=== PATIENT | female | born 1950 | race Caucasian/White ===

== ENCOUNTER 2017-04-17 06:01 | Inpatient (IN) | payer MEDICARE, BC ==
[2017-04-17] MEDS ORDERED: Scopolamine 1.5 MG Transdermal Patch TOP ONE (06:05)
[2017-04-17] MEDS ORDERED: Gabapentin 300 MG Cap PO ONE (06:05)
[2017-04-17] MEDS ORDERED: Lactated Ringers 1,000 ML IV SCH (06:15)
[2017-04-17] MEDS ORDERED: Thrombin (Bovine) 5,000 Unit Kit ONE ×2 (07:04→07:05)
[2017-04-17] MEDS ORDERED: Povidone-Iodine 10% Soln 118.25 ML Bottle ONE (07:05)
[2017-04-17] MEDS ORDERED: fentaNYL 250 MCG/5 ML SDV ONE (07:17)
[2017-04-17] MEDS ORDERED: Midazolam 1 MG/ML 2 ML SDV ONE (07:17)
[2017-04-17] MEDS ORDERED: Neostigmine Methylsulfate 1 MG/ML 5 ML Syringe ONE (07:17)
[2017-04-17] MEDS ORDERED: Dexamethasone 4 MG/ML SDV ONE (07:17)
[2017-04-17] MEDS ORDERED: Propofol 200 MG/20 ML SDV ONE (07:17)
[2017-04-17] MEDS ORDERED: Rocuronium 50 MG/5 ML Vial ONE (07:17)
[2017-04-17] MEDS ORDERED: Ondansetron 4 MG/2 ML SDV ONE (07:17)
[2017-04-17] MEDS ORDERED: Succinylcholine/Normal Saline 200 MG/10 ML Syringe ONE (07:17)
[2017-04-17] MEDS: Tranexamic Acid 900 MG in Sodium Chloride 0.9% 50 ML IV SCH ×2 (07:30→11:13)
[2017-04-17] MEDS: Clindamycin Phosphate 900 MG in Sodium Chloride 0.9% 100 ML IV ONE ×2 (07:30→13:57)
[2017-04-17] MEDS ORDERED: Ropivacaine 49.25 ML, Ketorolac 30 MG, EPINEPHrine 0.5 MG, cloNIDine 80 MCG, Sodium Chl... INJECT ONE ×5 (07:30)
[2017-04-17] MEDS ORDERED: Ketamine 500 MG/5 ML MDV IV ONE (07:30)
[2017-04-17] MEDS ORDERED: ePHEDrine 50 MG/ML SDV ONE (08:03)
[2017-04-17] MEDS ORDERED: Lactated Ringers 1,000 ML ONE (10:15)
[2017-04-17] MEDS ORDERED: Naloxone 0.4 MG/ML SDV IVPUSH PRN (10:49)
[2017-04-17] MEDS ORDERED: Sodium Chloride 0.9% 10 ML Syringe FLUSH PRN (10:49)
[2017-04-17] MEDS ORDERED: HYDROmorphone 1 MG/ML Syringe IVPUSH PRN (10:49)
[2017-04-17] MEDS ORDERED: Magnesium Hydroxide 400 MG/5 ML Susp 30 ML Cup PO PRN (10:49)
[2017-04-17] MEDS ORDERED: Aluminum Hydroxide/Magnesium Hydroxide/Simethicone Susp 30 ML Cup PO PRN (10:49)
[2017-04-17] MEDS ORDERED: Zolpidem 5 MG Tab PO PRN (10:49)
[2017-04-17] MEDS ORDERED: Sennosides 8.6 MG Tab PO PRN (10:49)
[2017-04-17] MEDS ORDERED: Ondansetron 4 MG/2 ML SDV IVPUSH PRN (10:49)
[2017-04-17] MEDS ORDERED: Dexamethasone 4 MG/ML SDV IVPUSH SCH (11:00)
[2017-04-17] MEDS: Acetaminophen/oxyCODONE 325-5 MG Tab PO PRN ×3 (13:56→22:51)
[2017-04-17] MEDS: Dexamethasone 4 MG/ML SDV IVPUSH SCH ×2 (14:30→20:41)
--- NOTE | 2017-04-17 18:48 | OR ---
DATE OF PROCEDURE: 04/17/2017 PREOPERATIVE DIAGNOSES: 1. Spondylolisthesis, L4-L5. 2. Right foraminal stenosis, L4-L5. 3. Lumbar radiculopathy, right L4-5. POSTOPERATIVE DIAGNOSES: 1. Spondylolisthesis, L4-L5. 2. Right foraminal stenosis, L4-L5. 3. Lumbar radiculopathy, right L4-5. PROCEDURE: 1. Posterior lateral fusion, L4-L5. 2. Interbody placement, L4-L5. 3. Segmental instrumentation, L4-L5. 4. Use of operating microscope. 5. Laminectomy required in addition to interbody device placement. 6. Allograft from laminae and facets placed in the interbody with Globus synthetic material as well as in the posterior lateral gutter. CONFECTIONERY MAKER: Liliya Morin NP. ANESTHESIA: General endotracheal intubation. FLUID: Lactated Ringer solution. ESTIMATED BLOOD LOSS: 150 mL. COMPLICATIONS: None. SPECIMEN: None. DISCHARGE DISPOSITION: Stable to PACU. INDICATION FOR THE PROCEDURE: The patient is well known to me. She had been hospitalized by Dr. Santos last fall with a differential of lumbar radiculopathy or right hip arthritis causing severe pain. She did receive extensive nonoperative treatment including physical therapy, injections, and nonsteroidal anti-inflammatory treatment as well as the gabapentin as well as with steroids. She had been getting worse for the last few weeks and came to Dr. Santos's office, yesterday barely able to walk with extreme radiculopathy and pain and new onset weakness to the right lower extremity. Risks and benefits of the procedure were explained to the patient. Informed consent was obtained. Preoperative imaging confirmed the above-mentioned diagnosis. DETAILS OF PROCEDURE: The patient was seen preoperatively by myself and the Anesthesia staff in the preop holding area, where the operative site was marked. She was brought to the operative suite by Anesthesia staff where general anesthesia was administered. Neuromonitoring leads were placed and sterile Navas catheter was placed. The operating microscope was draped in sterile manner. The fluoroscopy unit was draped in sterile manner. The patient was flipped into a prone position on a Samir table. All extremities were found to be well padded. The bed was then flexed. The patient was then prepped and draped in a sterile manner. Time-out was called identifying the correct the patient, the correct procedure, correct site, and antibiotics had been with appropriate period of time. Lateral fluoroscopy was then used to identify the areas of the pedicle of L4 and L5 as well as the interspace. A midline incision was made over the spinous processes L3 to L5 and carried down to the deep fascia. Bleeding was controlled with Bovie electrocautery as well as a 5.0 Aquamantys unit. Cerebellar was used for traction at that point. Rojo elevator and Bovie electrocautery were then used for dissection over the inferior portion of the spinous process and lamina of L3. The entire lamina and spinous process of L4 and the superior portion of the L5 spinous process and lamina and all their respective facets, and then the transverse process of L4 and L5 were then cleared for later fusion on the left at L4 and L5. At that point, Versa-Trac 100 mm blade were inserted down to the level of the transverse processes bilaterally and used for retraction. Bleeding was controlled with Bovie electrocautery as well as 5.0 Aquamantys unit. The lateral facets as well as the pars of L4 was identified, some soft tissue was cleared. We then started on the left side with our screws. The manner which this pedicle screws were placed was to drill down the lateral facet and then make a small drill hole of the level of the pars at the midpoint of the transverse process, and then use a PediGuard to place the track for the pedicle screw followed by confirmation of a good track placement with pedicle probe followed by a tap. I tapped one under on these and then placement of the screws. They were all 6.5 x 50 mm Creo AMP by Globus screws. I performed this on the left and then took films and then performed on the right. These all look to be in good position. I then tested the screws, all of them tested over 25. On monitoring, we then cleared the top of the screws for later tulip placement. I then did a hemilaminectomy on the right side. I removed the inferior facet of L4 and the superior facet of L5 on the right. I did encounter directly under the facet of L5, when I took the bone out with a pituitary, I did a twisting motion and examined what I thought was either a vessel or possibly part of the dorsal rami. It was pulsating and I did place Big Pool-Edenilson suture through this to prevent neuroma or to ensure that there was no bleeding later. I did encounter blood when I placed the needle through this. We then moved on and removed the remainder of the ligamentum flavum on the right and identified the exiting L4 nerve root on the right. This was totally decompressed. I then used bipolar electrocautery to clear the disk space of L4-L5 on the right, then used sharp blade to go through the annulus. I then did a total diskectomy using pituitaries as well as straight upgoing and downgoing curette and then remove more disk material. I then placed the bone tamp, we had ground bone from the lamina as well as the facets mixing it with some allograft and placed this through the bone funnel anteriorly at the anterior aspect of the disk space followed by insertion of a Rise 10 x 26, 7-degree, 8-15 mm implant. I used a distractor to get it open and then closed and then attempted forward. I then opened it half way and then tamped again forward and then opened it all the way until the torqued out it 15 mm. I felt this provided excellent stability anteriorly. We then placed our rods. We placed a 35 mm ramon on the right and a 40 mm ramon on the left. That was done after placing the tulips and then torqued the L5 screws and then did the L4 screws. I needed a slight reduction on the L4 screw on the right, which would have been expected with this spondylolisthesis. After this had been completed, we copiously irrigated with saline. I then decorticated the transverse processes on L4 and L5 as well as the facet and remainder of the lamina on the left. I then inserted our graft, copiously irrigated with saline with Betadine infused irrigation with 3 L of it, and then I placed some FloSeal in the wound and tamped this dry with a Ray-Taylor followed by Gelfoam powder followed by closure with running #2 Vicryl. Another liter of Betadine infused irrigation over the fascia followed by 0 Vicryl pops for the deep subcutaneous, 2-0 Vicryl pops for superficial subcutaneous, Monocryl, Dermabond, and a sterile dressing. The patient was then flipped onto her supine position on her hospital bed. Neuromonitoring leads were discontinued at closure and were normal during the entire procedure. Orestes Martell DO /[id number]
[2017-04-18] MEDS: Dexamethasone 4 MG/ML SDV IVPUSH SCH ×2 (01:55→07:15)
[2017-04-18] MEDS: Acetaminophen/oxyCODONE 325-5 MG Tab PO PRN ×5 (03:27→23:12)
[2017-04-18] MEDS: Docusate Sodium 100 MG Cap PO PRN (07:14)
--- NOTE | 2017-04-18 12:17 | PCM.PN ---
- General Info Date of Service: 04/18/17 Admission Dx/Problem (Free Text): Rhiannon is a pleasant 66 year old female who is status post op day 1 of a lumbar fusion. She is doing very well. Her pain is under control with oral pain medication. She continues to work with PT without any difficulties. Functional Status: Reports: pain controlled, tolerating diet, ambulating, urinating - Review of Systems General: Reports: No Symptoms Musculoskeletal: Reports: no symptoms Skin: Reports: no symptoms - Patient Data Vitals - most recent: Last Vital Signs Temp 37.0 C 04/18/17 11:25 Pulse 76 04/18/17 11:25 Resp 16 04/18/17 11:25 BP 99/55 L 04/18/17 11:25 Pulse Ox 95 04/18/17 11:25 Weight - most recent: 192 lb 3.2 oz I&O - last 24 hours: Intake & Output 04/17/17 04/18/17 04/18/17 22:59 06:59 14:59 Intake Total 1090 1221 800 Output Total 320 Balance 770 1221 800 Lab Results last 24 hrs: Laboratory Results - last 24 hr 04/18/17 04/18/17 Range/Units 05:30 05:30 WBC 13.8 H (4.5-11.0) K/uL RBC 3.77 (3.30-5.50) M/uL Hgb 11.1 L D (12.0-15.0) g/dL Hct 33.5 L (36.0-48.0) % MCV 89 (80-98) fL MCH 29 (27-31) pg MCHC 33 (32-36) % Plt Count 252 (150-400) K/uL Neut % (Auto) 89 H (36-66) % Lymph % (Auto) 4 L (24-44) % Randolph % (Auto) 7 H (2-6) % Eos % (Auto) 0 L (2-4) % Baso % (Auto) 0 (0-1) % Sodium 138 L (140-148) mmol/L Potassium 4.1 (3.6-5.2) mmol/L Chloride 103 (100-108) mmol/L Carbon Dioxide 28 (21-32) mmol/L Anion Gap 11.1 (5.0-14.0) mmol/L BUN 14 (7-18) mg/dL Creatinine 0.8 (0.6-1.0) mg/dL Est Cr Clr Drug Dosing 56.90 mL/min Estimated GFR (MDRD) > 60 (>60) Glucose 137 H (74-106) mg/dL Calcium 8.5 (8.5-10.1) mg/dL Med Orders - Current: Current Medications Al Hydroxide/Mg Hydroxide (Mag-Al Plus) 30 ml PO Q4H PRN PRN Reason: Indigestion Diazepam (Valium) 5 mg IVPUSH Q6H PRN PRN Reason: Spasms Docusate Sodium (Colace) 100 mg PO DAILY PRN PRN Reason: Constipation Last Admin: 04/18/17 07:14 Dose: 100 mg Hydromorphone HCl (Dilaudid) 1 mg IVPUSH Q2H PRN PRN Reason: Pain Lactated Ringer's (Ringers, Lactated) 1,000 mls @ 0 mls/hr IV ASDIRECTED PATTIE PRN Reason: KVO Last Admin: 04/17/17 07:07 Dose: 25 mls/hr Magnesium Hydroxide (Milk Of Magnesia) 30 ml PO BID PRN PRN Reason: Constipation Naloxone HCl (Narcan) 0.2 mg IVPUSH ONETIME PRN PRN Reason: Oversedation Ondansetron HCl (Zofran) 8 mg IVPUSH Q4H PRN PRN Reason: Nausea/Vomiting Oxycodone/Acetaminophen (Percocet 325-5 Mg) 2 tab PO Q4H PRN PRN Reason: Pain Last Admin: 04/18/17 11:30 Dose: 1 tab Senna (Senna) 8.6 mg PO BID PRN PRN Reason: Constipation Sodium Chloride (Saline Flush) 10 ml FLUSH ASDIRECTED PRN PRN Reason: Keep Vein Open Zolpidem Tartrate (Ambien) 5 mg PO BEDTIME PRN PRN Reason: Sleep Discontinued Medications Ropivacaine 49.25 ml/Ketorolac Tromethamine 30 mg/Epinephrine HCl 0.5 mg/ Clonidine HCl 80 mcg/ Sodium Chloride 48.45 ml 0 ml INJECT ONETIME ONE Stop: 04/17/17 07:31 Last Admin: 04/17/17 10:15 Dose: 100 ml Dexamethasone (Dexamethasone) Confirm Administered Dose 4 mg .ROUTE .STK-MED ONE Stop: 04/17/17 07:18 Dexamethasone (Dexamethasone) 4 mg IVPUSH Q6H [facility] Stop: 04/18/17 05:01 Last Admin: 04/17/17 20:35 Dose: Not Given Dexamethasone (Dexamethasone) 4 mg IVPUSH Q6H [facility] Stop: 04/18/17 08:01 Last Admin: 04/18/17 07:15 Dose: 4 mg Ephedrine Sulfate (Ephedrine Sulfate) Confirm Administered Dose 50 mg .ROUTE .STK-MED ONE Stop: 04/17/17 08:04 Fentanyl (Sublimaze) Confirm Administered Dose 250 mcg .ROUTE .STK-MED ONE Stop: 04/17/17 07:18 Gabapentin (Neurontin) 300 mg PO ONETIME ONE Stop: 04/17/17 06:06 Last Admin: 04/17/17 06:33 Dose: 300 mg Glycopyrrolate () Confirm Administered Dose 1 mg .ROUTE .STK-MED ONE Stop: 04/17/17 07:18 Clindamycin Phosphate 900 mg/ (Sodium Chloride) 106 mls @ 200 mls/hr IV ONETIME ONE Stop: 04/17/17 07:46 Last Admin: 04/17/17 13:57 Dose: Not Given Tranexamic Acid 900 mg/ Sodium (Chloride) 59 mls @ 236 mls/hr IV Q3H [facility] Stop: 04/17/17 10:44 Last Admin: 04/17/17 11:13 Dose: 236 mls/hr Ketamine HCl 100 mg/ Sodium (Chloride) 100 mls @ 16 mls/hr IV ASDIRECTED [facility] Stop: 04/17/17 09:30 Lactated Ringer's (Ringers, Lactated) Confirm Administered Dose 1,000 mls @ as directed .ROUTE .STK-MED ONE Stop: 04/17/17 10:16 Clindamycin Phosphate 600 mg/ (Sodium Chloride) 54 mls @ 100 mls/hr IV Q8H [facility] Stop: 04/18/17 03:33 Last Admin: 04/17/17 20:34 Dose: Not Given Clindamycin Phosphate 600 mg/ (Sodium Chloride) 54 mls @ 100 mls/hr IV Q8H [facility] Stop: 04/18/17 06:33 Last Admin: 04/18/17 05:24 Dose: 100 mls/hr Ketamine HCl (Ketalar) 27 mg IV ONETIME ONE Stop: 04/17/17 07:31 Last Admin: 04/17/17 13:58 Dose: Not Given Midazolam HCl (Versed 1 Mg/Ml) Confirm Administered Dose 2 mg .ROUTE .STK-MED ONE Stop: 04/17/17 07:18 Neostigmine Methylsulfate (Neostigmine) Confirm Administered Dose 5 mg .ROUTE .STK-MED ONE Stop: 04/17/17 07:18 Ondansetron HCl (Zofran) Confirm Administered Dose 4 mg .ROUTE .STK-MED ONE Stop: 04/17/17 07:18 Povidone Iodine (Betadine 10% Soln) Confirm Administered Dose 1 ml .ROUTE .STK- MED ONE Stop: 04/17/17 07:06 Last Admin: 04/17/17 08:23 Dose: 50 ml Propofol (Diprivan 20 Ml) Confirm Administered Dose 200 mg .ROUTE .STK-MED ONE Stop: 04/17/17 07:18 Rocuronium Troy (Zemuron) Confirm Administered Dose 50 mg .ROUTE .STK-MED ONE Stop: 04/17/17 07:18 Scopolamine (Transderm-Scop) 1.5 mg TOP ONETIME ONE Stop: 04/17/17 06:06 Last Admin: 04/17/17 06:33 Dose: 1.5 mg Succinylcholine Chloride (Succinylcholine In Ns Pf) Confirm Administered Dose 200 mg .ROUTE .STK-MED ONE Stop: 04/17/17 07:18 Thrombin (Thrombin-Jmi) Confirm Administered Dose 15,000 unit .ROUTE .STK-MED ONE Stop: 04/17/17 07:05 Last Admin: 04/17/17 08:23 Dose: 10,000 unit - Exam General: alert, oriented Back Exam: Normal Inspection, Full Range of Motion Extremities: no edema, normal pulses, no tenderness/swelling Skin: warm, dry, intact Wound/Incisions: healing well, dressing dry and intact Neurological: no new focal deficit Psy/Mental Status: alert, normal affect, normal mood - Problem List & Annotations (1) Spinal stenosis of lumbar region SNOMED Code(s): 59460216 Code(s): M48.06 - SPINAL STENOSIS, LUMBAR REGION Status: Acute Current Visit: No - Problem List Review Problem List Initiated/Reviewed/Updated: Yes - My Orders Last 24 Hours: My Active Orders 04/17/17 Lunch Advance Diet Instructions [DIET] 04/19/17 05:15 BASIC METABOLIC PANEL,BMP [CHEM] DAILY CBC WITH AUTO DIFF [HEME] DAILY 04/20/17 05:15 BASIC METABOLIC PANEL,BMP [CHEM] DAILY CBC WITH AUTO DIFF [HEME] DAILY 04/21/17 05:15 BASIC METABOLIC PANEL,BMP [CHEM] DAILY CBC WITH AUTO DIFF [HEME] DAILY - Assessment Assessment:: SPINE Musculoskeletal Physical Examination Constitutional: Vital signs including height and weight were reviewed and documented on the patient's chart. General appearance demonstrates normal development and body habitus. HEENT: Normocephalic, atraumatic. Neurological: The patient is alert and oriented to person, place, and time. Mood and affect are appropriate. Gait and station are normal. Intact sensation is noted. Deep tendon reflexes are equal. Clonus negative. Shelton' s negative. Coordination and balance are normal. Neck: Inspection/palpation: Normal symmetry and appearance without tenderness. Range of motion: Full range of motion without pain. Stability: Stable through range of motion. Strength: Normal muscle strength and tone. Skin: Normal skin tone without rashes or lesions. Lumbar Spine: Inspection/palpation: Normal symmetry and appearance without tenderness. Range of motion: Full range of motion without pain. Stability: Stable through range of motion. Strength: Normal muscle strength and tone. Skin: Normal skin tone without rashes or lesions. Right upper extremity: Inspection/palpation: Normal symmetry and appearance without tenderness. Range of motion: Full range of motion without pain. Stability: Stable through range of motion. Strength: Normal muscle strength and tone. Skin: Normal skin tone without rashes or lesions. Left upper extremity: Inspection/palpation: Normal symmetry and appearance without tenderness. Range of motion: Full range of motion without pain. Stability: Stable through range of motion. Strength: Normal muscle strength and tone. Skin: Normal skin tone without rashes or lesions. Right lower extremity: Inspection/palpation: Normal symmetry and appearance without tenderness. Range of motion: Full range of motion without pain. Stability: Stable through range of motion. Strength: Normal muscle strength and tone. Skin: Normal skin tone without rashes or lesions. Left lower extremity: Inspection/palpation: Normal symmetry and appearance without tenderness. Range of motion: Full range of motion without pain. Stability: Stable through range of motion. Strength: Normal muscle strength and tone. Skin: Normal skin tone without rashes or lesions. - Plan Plan:: At this time we will continue to monitor her. She will meet with PT multiple times today to work on strengthening. Her pain will continue to be monitored. I did replace the dressing today and the incision looks well. We will continue with our plan for prison placement due to her living at home on her own.
[2017-04-19] MEDS: Acetaminophen/oxyCODONE 325-5 MG Tab PO PRN ×5 (02:45→22:55)
[2017-04-19] MEDS: Docusate Sodium 100 MG Cap PO PRN (08:21)
--- NOTE | 2017-04-19 09:36 | PCM.PN ---
- General Info Date of Service: 04/19/17 Admission Dx/Problem (Free Text): Rhiannon is POD 2 of a lumbar fusion. She is doing well. She notes some pain at the incision site and in the right groin but is relieved with oral pain medication. She continues to work with PT for strengthening. Functional Status: Reports: pain controlled, tolerating diet, ambulating, urinating - Review of Systems General: Reports: No Symptoms Musculoskeletal: Reports: no symptoms - Patient Data Vitals - most recent: Last Vital Signs Temp 36.4 C 04/19/17 08:07 Pulse 66 04/19/17 08:07 Resp 16 04/19/17 08:07 BP 102/64 04/19/17 08:53 Pulse Ox 95 04/19/17 08:07 Weight - most recent: 192 lb 3.2 oz I&O - last 24 hours: Intake & Output 04/18/17 04/19/17 04/19/17 22:59 06:59 14:59 Intake Total 720 400 Balance 720 400 Lab Results last 24 hrs: Laboratory Results - last 24 hr 04/19/17 04/19/17 Range/Units 05:35 05:35 WBC 8.4 (4.5-11.0) K/uL RBC 3.45 (3.30-5.50) M/uL Hgb 10.2 L (12.0-15.0) g/dL Hct 31.4 L (36.0-48.0) % MCV 91 (80-98) fL MCH 30 (27-31) pg MCHC 33 (32-36) % Plt Count 223 (150-400) K/uL Neut % (Auto) 57 (36-66) % Lymph % (Auto) 28 (24-44) % [place] % (Auto) 14 H (2-6) % Eos % (Auto) 0 L (2-4) % Baso % (Auto) 0 (0-1) % Sodium 141 (140-148) mmol/L Potassium 3.8 (3.6-5.2) mmol/L Chloride 107 (100-108) mmol/L Carbon Dioxide 30 (21-32) mmol/L Anion Gap 3.6 L (5.0-14.0) mmol/L BUN 20 H (7-18) mg/dL Creatinine 0.7 (0.6-1.0) mg/dL Est Cr Clr Drug Dosing 65.03 mL/min Estimated GFR (MDRD) > 60 (>60) Glucose 91 (74-106) mg/dL Calcium 8.2 L (8.5-10.1) mg/dL Med Orders - Current: Current Medications Al Hydroxide/Mg Hydroxide (Mag-Al Plus) 30 ml PO Q4H PRN PRN Reason: Indigestion Diazepam (Valium) 5 mg IVPUSH Q6H PRN PRN Reason: Spasms Docusate Sodium (Colace) 100 mg PO DAILY PRN PRN Reason: Constipation Last Admin: 04/19/17 08:21 Dose: 100 mg Hydromorphone HCl (Dilaudid) 1 mg IVPUSH Q2H PRN PRN Reason: Pain Magnesium Hydroxide (Milk Of Magnesia) 30 ml PO BID PRN PRN Reason: Constipation Last Admin: 04/19/17 08:21 Dose: 30 ml Naloxone HCl (Narcan) 0.2 mg IVPUSH ONETIME PRN PRN Reason: Oversedation Ondansetron HCl (Zofran) 8 mg IVPUSH Q4H PRN PRN Reason: Nausea/Vomiting Oxycodone/Acetaminophen (Percocet 325-5 Mg) 2 tab PO Q4H PRN PRN Reason: Pain Last Admin: 04/19/17 08:21 Dose: 1 tab Senna (Senna) 8.6 mg PO BID PRN PRN Reason: Constipation Sodium Chloride (Saline Flush) 10 ml FLUSH ASDIRECTED PRN PRN Reason: Keep Vein Open Zolpidem Tartrate (Ambien) 5 mg PO BEDTIME PRN PRN Reason: Sleep Discontinued Medications Ropivacaine 49.25 ml/Ketorolac Tromethamine 30 mg/Epinephrine HCl 0.5 mg/ Clonidine HCl 80 mcg/ Sodium Chloride 48.45 ml 0 ml INJECT ONETIME ONE Stop: 04/17/17 07:31 Last Admin: 04/17/17 10:15 Dose: 100 ml Dexamethasone (Dexamethasone) Confirm Administered Dose 4 mg .ROUTE .STK-MED ONE Stop: 04/17/17 07:18 Dexamethasone (Dexamethasone) 4 mg IVPUSH Q6H [facility] Stop: 04/18/17 05:01 Last Admin: 04/17/17 20:35 Dose: Not Given Dexamethasone (Dexamethasone) 4 mg IVPUSH Q6H [facility] Stop: 04/18/17 08:01 Last Admin: 04/18/17 07:15 Dose: 4 mg Ephedrine Sulfate (Ephedrine Sulfate) Confirm Administered Dose 50 mg .ROUTE .STK-MED ONE Stop: 04/17/17 08:04 Fentanyl (Sublimaze) Confirm Administered Dose 250 mcg .ROUTE .STK-MED ONE Stop: 04/17/17 07:18 Gabapentin (Neurontin) 300 mg PO ONETIME ONE Stop: 04/17/17 06:06 Last Admin: 04/17/17 06:33 Dose: 300 mg Glycopyrrolate () Confirm Administered Dose 1 mg .ROUTE .STK-MED ONE Stop: 04/17/17 07:18 Lactated Ringer's (Ringers, Lactated) 1,000 mls @ 0 mls/hr IV ASDIRECTED [facility] PRN Reason: KVO Last Admin: 04/17/17 07:07 Dose: 25 mls/hr Clindamycin Phosphate 900 mg/ (Sodium Chloride) 106 mls @ 200 mls/hr IV ONETIME ONE Stop: 04/17/17 07:46 Last Admin: 04/17/17 13:57 Dose: Not Given Tranexamic Acid 900 mg/ Sodium (Chloride) 59 mls @ 236 mls/hr IV Q3H [facility] Stop: 04/17/17 10:44 Last Admin: 04/17/17 11:13 Dose: 236 mls/hr Ketamine HCl 100 mg/ Sodium (Chloride) 100 mls @ 16 mls/hr IV ASDIRECTED [facility] Stop: 04/17/17 09:30 Lactated Ringer's (Ringers, Lactated) Confirm Administered Dose 1,000 mls @ as directed .ROUTE .STK-MED ONE Stop: 04/17/17 10:16 Clindamycin Phosphate 600 mg/ (Sodium Chloride) 54 mls @ 100 mls/hr IV Q8H [facility] Stop: 04/18/17 03:33 Last Admin: 04/17/17 20:34 Dose: Not Given Clindamycin Phosphate 600 mg/ (Sodium Chloride) 54 mls @ 100 mls/hr IV Q8H [facility] Stop: 04/18/17 06:33 Last Admin: 04/18/17 05:24 Dose: 100 mls/hr Ketamine HCl (Ketalar) 27 mg IV ONETIME ONE Stop: 04/17/17 07:31 Last Admin: 04/17/17 13:58 Dose: Not Given Midazolam HCl (Versed 1 Mg/Ml) Confirm Administered Dose 2 mg .ROUTE .STK-MED ONE Stop: 04/17/17 07:18 Neostigmine Methylsulfate (Neostigmine) Confirm Administered Dose 5 mg .ROUTE .STK-MED ONE Stop: 04/17/17 07:18 Ondansetron HCl (Zofran) Confirm Administered Dose 4 mg .ROUTE .STK-MED ONE Stop: 04/17/17 07:18 Povidone Iodine (Betadine 10% Soln) Confirm Administered Dose 1 ml .ROUTE .STK- MED ONE Stop: 04/17/17 07:06 Last Admin: 04/17/17 08:23 Dose: 50 ml Propofol (Diprivan 20 Ml) Confirm Administered Dose 200 mg .ROUTE .STK-MED ONE Stop: 04/17/17 07:18 Rocuronium [place] (Zemuron) Confirm Administered Dose 50 mg .ROUTE .STK-MED ONE Stop: 04/17/17 07:18 Scopolamine (Transderm-Scop) 1.5 mg TOP ONETIME ONE Stop: 04/17/17 06:06 Last Admin: 04/17/17 06:33 Dose: 1.5 mg Succinylcholine Chloride (Succinylcholine In Ns Pf) Confirm Administered Dose 200 mg .ROUTE .STK-MED ONE Stop: 04/17/17 07:18 Thrombin (Thrombin-Jmi) Confirm Administered Dose 15,000 unit .ROUTE .STK-MED ONE Stop: 04/17/17 07:05 Last Admin: 04/17/17 08:23 Dose: 10,000 unit - Exam General: alert, oriented Back Exam: Normal Inspection Extremities: no edema, normal pulses Skin: warm, dry, intact Wound/Incisions: healing well, dressing dry and intact, no drainage Neurological: no new focal deficit Psy/Mental Status: alert, normal affect - Problem List & Annotations (1) Spinal stenosis of lumbar region SNOMED Code(s): 41528866 Code(s): M48.06 - SPINAL STENOSIS, LUMBAR REGION Status: Acute Current Visit: No - Problem List Review Problem List Initiated/Reviewed/Updated: Yes - My Orders Last 24 Hours: My Active Orders 04/20/17 05:15 BASIC METABOLIC PANEL,BMP [CHEM] DAILY CBC WITH AUTO DIFF [HEME] DAILY 04/21/17 05:15 BASIC METABOLIC PANEL,BMP [CHEM] DAILY CBC WITH AUTO DIFF [HEME] DAILY - Assessment Assessment:: SPINE Musculoskeletal Physical Examination Constitutional: Vital signs including height and weight were reviewed and documented on the patient's chart. General appearance demonstrates normal development and body habitus. HEENT: Normocephalic, atraumatic. Neurological: The patient is alert and oriented to person, place, and time. Mood and affect are appropriate. Gait and station are normal. Intact sensation is noted. Deep tendon reflexes are equal. Clonus negative. [place]' s negative. Coordination and balance are normal. Neck: Inspection/palpation: Normal symmetry and appearance without tenderness. Range of motion: Full range of motion without pain. Stability: Stable through range of motion. Strength: Normal muscle strength and tone. Skin: Normal skin tone without rashes or lesions. Lumbar Spine: Inspection/palpation: Normal symmetry and appearance without tenderness. Range of motion: Full range of motion without pain. Stability: Stable through range of motion. Strength: Normal muscle strength and tone. Skin: Normal skin tone without rashes or lesions. Right upper extremity: Inspection/palpation: Normal symmetry and appearance without tenderness. Range of motion: Full range of motion without pain. Stability: Stable through range of motion. Strength: Normal muscle strength and tone. Skin: Normal skin tone without rashes or lesions. Left upper extremity: Inspection/palpation: Normal symmetry and appearance without tenderness. Range of motion: Full range of motion without pain. Stability: Stable through range of motion. Strength: Normal muscle strength and tone. Skin: Normal skin tone without rashes or lesions. Right lower extremity: Inspection/palpation: Normal symmetry and appearance without tenderness. Range of motion: Full range of motion without pain. Stability: Stable through range of motion. Strength: Normal muscle strength and tone. Skin: Normal skin tone without rashes or lesions. Left lower extremity: Inspection/palpation: Normal symmetry and appearance without tenderness. Range of motion: Full range of motion without pain. Stability: Stable through range of motion. Strength: Normal muscle strength and tone. Skin: Normal skin tone without rashes or lesions. - Plan Plan:: Patient will be planned to discharge to the custodial tomorrow in [place]. We will send her there on Percocet. She will continue with pt and strengthening today and we will check back with her in AM.
[2017-04-19] MEDS: FLUoxetine 20 MG Cap PO SCH (11:23)
[2017-04-19] MEDS: Pantoprazole 40 MG Tab.CR PO SCH (11:23)
[2017-04-19] MEDS: Hydrochlorothiazide 25 MG Tab PO SCH (11:24)
[2017-04-20] MEDS: Acetaminophen/oxyCODONE 325-5 MG Tab PO PRN ×3 (02:58→13:07)
[2017-04-20 07:25] VITALS: BP 120/65
[2017-04-20] MEDS: Pantoprazole 40 MG Tab.CR PO SCH (07:29)
[2017-04-20] MEDS: FLUoxetine 20 MG Cap PO SCH (09:10)
[2017-04-20] MEDS: Hydrochlorothiazide 25 MG Tab PO SCH (09:10)
--- NOTE | 2017-05-14 14:47 | PCM.DCSUM1 ---
Discharge Summary - Hospital Course Free Text/Narrative:: Rhiannon is doing well. She is status post of 3 days of lumbar fusion. She is doing very well. She plans to go home today with the help of her . She is having no difficulties at this time. She continues to work with PT OT with no issues. Her pain is under control with oral pain medication. She is urinating and tolerating her diet well. She will follow-up with us in 1 month - Discharge Data Discharge Date: 04/20/17 Discharge Disposition: Home, W Home Health Agency 06 Condition: Good - Discharge Diagnosis/Problem(s) (1) Spinal stenosis of lumbar region SNOMED Code(s): 98556214 ICD Code: M48.06 - SPINAL STENOSIS, LUMBAR REGION Status: Acute (2) Spondylolisthesis, lumbar region SNOMED Code(s): 014910394477083 ICD Code: M43.16 - SPONDYLOLISTHESIS, LUMBAR REGION Status: Acute - Patient Summary/Data Consults: Consultations 04/17/17 10:49 Consult to Physician [CONS] Routine Consulting Provider: Jensen Santos Sr Courtesy Call Completed to Consulting Physician: Yes OT Evaluation and Treatment [CONS] Routine Please Evaluate and Treat. OT Reason for Consult: Strengthening This query below is only for informational purposes and is not editable. PT Evaluation and Treatment [CONS] Routine Please Evaluate and Treat. PT Reason for Consult: Strengthening This query below is only for informational purposes and is not editable. - Patient Instructions Diet: Usual Diet as Tolerated Activity: Apply Ice, As Tolerated Driving: Do Not Drive Showering/Bathing: May Shower Wound/Incision Care: Keep Operative Site/Wound Site Clean and Dry, Change Dressing Daily Notify Provider of: Fever, Increased Pain, Swelling and Redness, Drainage, Nausea and/or Vomiting - Discharge Plan Prescriptions/Med Rec: Acetaminophen/oxyCODONE [Percocet 325-5 MG] 2 tab PO Q4H PRN #90 tablet PRN Reason: Pain Home Medications: Home Meds FLUoxetine HCl [Fluoxetine HCl] 40 mg PO DAILY 02/15/14 [History] Hydrochlorothiazide 25 mg PO DAILY 02/15/14 [History] Aspirin [Adult Low Dose Aspirin EC] 81 mg PO BID 04/13/14 [History] Omeprazole 40 mg PO DAILY 08/26/16 [History] Acetaminophen [Tylenol Extra Strength] 2 tab PO Q6H PRN 04/16/17 [History] Aspirin/Acetaminophen/Caffeine [Ra Pain Reliever Tablet] 2 tab PO Q8H PRN [History] Ibuprofen 800 mg PO Q6H PRN 04/16/17 [History] Acetaminophen/oxyCODONE [Percocet 325-5 MG] 2 tab PO Q4H PRN #90 tablet [Rx] Gabapentin [Neurontin] 1 tab PO TID 05/07/17 [History] Patient Handouts: Spinal Fusion, Care After, Constipation, Adult Referrals: Orestes Martell DO [Physician] - (1 month follow up) - Discharge Summary/Plan Comment DC Time >30 min.: Yes - Patient Data Vitals - Most Recent: Last Vital Signs Temp 36.4 C 04/20/17 07:22 Pulse 66 04/20/17 07:22 Resp 16 04/20/17 07:22 BP 120/65 04/20/17 07:22 Pulse Ox 96 04/20/17 03:00 Weight - Most Recent: 192 lb 3.2 oz Med Orders - Current: Current Medications Discontinued Medications Al Hydroxide/Mg Hydroxide (Mag-Al Plus) 30 ml PO Q4H PRN PRN Reason: Indigestion Ropivacaine 49.25 ml/Ketorolac Tromethamine 30 mg/Epinephrine HCl 0.5 mg/ Clonidine HCl 80 mcg/ Sodium Chloride 48.45 ml 0 ml INJECT ONETIME ONE Stop: 04/17/17 07:31 Last Admin: 04/17/17 10:15 Dose: 100 ml Dexamethasone (Dexamethasone) Confirm Administered Dose 4 mg .ROUTE .STK-MED ONE Stop: 04/17/17 07:18 Dexamethasone (Dexamethasone) 4 mg IVPUSH Q6H [facility] Stop: 04/18/17 05:01 Last Admin: 04/17/17 20:35 Dose: Not Given Dexamethasone (Dexamethasone) 4 mg IVPUSH Q6H [facility] Stop: 04/18/17 08:01 Last Admin: 04/18/17 07:15 Dose: 4 mg Diazepam (Valium) 5 mg IVPUSH Q6H PRN PRN Reason: Spasms Docusate Sodium (Colace) 100 mg PO DAILY PRN PRN Reason: Constipation Last Admin: 04/19/17 08:21 Dose: 100 mg Ephedrine Sulfate (Ephedrine Sulfate) Confirm Administered Dose 50 mg .ROUTE .[facility] ONE Stop: 04/17/17 08:04 Fentanyl (Sublimaze) Confirm Administered Dose 250 mcg .ROUTE .[facility] ONE Stop: 04/17/17 07:18 Fluoxetine HCl (Prozac) 40 mg PO DAILY [facility] Last Admin: 04/20/17 09:10 Dose: 40 mg Gabapentin (Neurontin) 300 mg PO ONETIME ONE Stop: 04/17/17 06:06 Last Admin: 04/17/17 06:33 Dose: 300 mg Glycopyrrolate () Confirm Administered Dose 1 mg .ROUTE .[facility] ONE Stop: 04/17/17 07:18 Hydrochlorothiazide (Hydrochlorothiazide) 25 mg PO DAILY [facility] Last Admin: 04/20/17 09:10 Dose: 25 mg Hydromorphone HCl (Dilaudid) 1 mg IVPUSH Q2H PRN PRN Reason: Pain Lactated Ringer's (Ringers, Lactated) 1,000 mls @ 0 mls/hr IV ASDIRECTED [facility] PRN Reason: KVO Last Admin: 04/17/17 07:07 Dose: 25 mls/hr Clindamycin Phosphate 900 mg/ (Sodium Chloride) 106 mls @ 200 mls/hr IV ONETIME ONE Stop: 04/17/17 07:46 Last Admin: 04/17/17 13:57 Dose: Not Given Tranexamic Acid 900 mg/ Sodium (Chloride) 59 mls @ 236 mls/hr IV Q3H [facility] Stop: 04/17/17 10:44 Last Admin: 04/17/17 11:13 Dose: 236 mls/hr Ketamine HCl 100 mg/ Sodium (Chloride) 100 mls @ 16 mls/hr IV ASDIRECTED [facility] Stop: 04/17/17 09:30 Lactated Ringer's (Ringers, Lactated) Confirm Administered Dose 1,000 mls @ as directed .ROUTE .[facility] ONE Stop: 04/17/17 10:16 Clindamycin Phosphate 600 mg/ (Sodium Chloride) 54 mls @ 100 mls/hr IV Q8H [facility] Stop: 04/18/17 03:33 Last Admin: 04/17/17 20:34 Dose: Not Given Clindamycin Phosphate 600 mg/ (Sodium Chloride) 54 mls @ 100 mls/hr IV Q8H [facility] Stop: 04/18/17 06:33 Last Admin: 04/18/17 05:24 Dose: 100 mls/hr Ketamine HCl (Ketalar) 27 mg IV ONETIME ONE Stop: 04/17/17 07:31 Last Admin: 04/17/17 13:58 Dose: Not Given Magnesium Hydroxide (Milk Of Magnesia) 30 ml PO BID PRN PRN Reason: Constipation Last Admin: 04/19/17 08:21 Dose: 30 ml Midazolam HCl (Versed 1 Mg/Ml) Confirm Administered Dose 2 mg .ROUTE .STK-MED ONE Stop: 04/17/17 07:18 Naloxone HCl (Narcan) 0.2 mg IVPUSH ONETIME PRN PRN Reason: Oversedation Neostigmine Methylsulfate (Neostigmine) Confirm Administered Dose 5 mg .ROUTE .STK-MED ONE Stop: 04/17/17 07:18 Ondansetron HCl (Zofran) Confirm Administered Dose 4 mg .ROUTE .STK-MED ONE Stop: 04/17/17 07:18 Ondansetron HCl (Zofran) 8 mg IVPUSH Q4H PRN PRN Reason: Nausea/Vomiting Oxycodone/Acetaminophen (Percocet 325-5 Mg) 2 tab PO Q4H PRN PRN Reason: Pain Last Admin: 04/20/17 13:07 Dose: 2 tab Pantoprazole Sodium (Protonix) 40 mg PO ACBREAKFAST [facility] Last Admin: 04/20/17 07:29 Dose: 40 mg Povidone Iodine (Betadine 10% Soln) Confirm Administered Dose 1 ml .ROUTE .STK- MED ONE Stop: 04/17/17 07:06 Last Admin: 04/17/17 08:23 Dose: 50 ml Propofol (Diprivan 20 Ml) Confirm Administered Dose 200 mg .ROUTE .STK-MED ONE Stop: 04/17/17 07:18 Rocuronium [place] (Zemuron) Confirm Administered Dose 50 mg .ROUTE .STK-MED ONE Stop: 04/17/17 07:18 Scopolamine (Transderm-Scop) 1.5 mg TOP ONETIME ONE Stop: 04/17/17 06:06 Last Admin: 04/17/17 06:33 Dose: 1.5 mg Senna (Senna) 8.6 mg PO BID PRN PRN Reason: Constipation Sodium Chloride (Saline Flush) 10 ml FLUSH ASDIRECTED PRN PRN Reason: Keep Vein Open Succinylcholine Chloride (Succinylcholine In Ns Pf) Confirm Administered Dose 200 mg .ROUTE .STK-MED ONE Stop: 04/17/17 07:18 Thrombin (Thrombin-Jmi) Confirm Administered Dose 15,000 unit .ROUTE .STK-MED ONE Stop: 04/17/17 07:05 Last Admin: 04/17/17 08:23 Dose: 10,000 unit Thrombin (Thrombin-Jmi) 10,000 unit .ROUTE .STK-MED ONE Stop: 04/17/17 07:06 Zolpidem Tartrate (Ambien) 5 mg PO BEDTIME PRN PRN Reason: Sleep - Exam General: Reports: Alert, Oriented Skin: Reports: Warm, Dry, Intact Wound/Incisions: Reports: Healing Well, Dressing Dry and Intact Neurological: Reports: No New Focal Deficit, Normal Gait, Strength Equal Bilateral, Reflexes Equal Bilateral Psy/Mental Status: Reports: Alert *Q Meaningful Use (DIS) - VTE *Q VTE Criteria *Q: - Stroke *Q Stroke Criteria *Q: - AMI *Q AMI Criteria *Q:
== END 2017-04-20 15:35 | disposition home health service (06) | DRG 460 ==
LOC: JP.SDS 06:01 → JP.MS 06:01 → EDSTATUS 07:30 → JP.MS 10:49
PROVIDERS: ADMIT Orthopaedic Surgery; ATTEND Orthopaedic Surgery
PROC: 0SB20ZZ Excision of Lumbar Vertebral Disc, Open Approach (ICD-10-PCS; principal; 2017-04-17)
PROC: 0QH004Z Insertion of Internal Fixation Device into Lumbar Vertebra, Open Approach (ICD-10-PCS; principal; 2017-04-17)
PROC: 0SG00A1 (ICD-10-PCS; principal; 2017-04-17)
DX: M43.16 Spondylolisthesis, lumbar region (principal); M48.06 Spinal stenosis, lumbar region; I10 Essential (primary) hypertension; K21.9 Gastro-esophageal reflux disease without esophagitis; Z79.82 Long term (current) use of aspirin; Z96.659 Presence of unspecified artificial knee joint
CPT/HCPCS: 36415; 76001; 80048; 85025; 94762; 97110-GP; 97116-GP; 97162-GP; 97530-GP; 97535-GP; A9270-GY; C1713; J1100; J2250; J2405; J2704; J2795; J3010; J7030; J7050; J7120; S0077

== ENCOUNTER → 2017-06-11 | Day surgery (SDC) | payer MEDICARE, BC ==
--- NOTE | 2017-06-11 14:32 | OR ---
DATE OF PROCEDURE: 06/11/2017 POSTOPERATIVE CARE: Postoperative care will be provided mainly at the [address] [place] [address] [facility] in conjunction with [facility]. PREOPERATIVE DIAGNOSIS: Cataract, right eye. POSTOPERATIVE DIAGNOSIS: Cataract, right eye. PROCEDURE: Phacoemulsification with intraocular lens placement, right eye. ANESTHESIA: Topical and intracameral. ESTIMATED BLOOD LOSS: Minimal. COMPLICATIONS: None. PATHOLOGY SPECIMENS: None. SURGICAL FINDINGS: None. INDICATION FOR PROCEDURE: The patient is a 66-year-old female with history of a visually significant cataract in the right eye, which interfered with activities of daily living. This consisted of a nuclear sclerosis cataract. Following careful discussion of the risks, benefits and alternatives to cataract extraction with intraocular lens placement including blindness and , the patient elected to proceed, and informed, written consent was obtained prior to the procedure. DESCRIPTION OF THE PROCEDURE: The patient was previously identified, and a renae placed above the right eye. All sources, including the patient, indicated that the right eye was the correct eye. The patient was subsequently taken to the operating room where standard monitors were applied. The patient was then prepped and draped in the usual sterile fashion for ophthalmic surgery. Attention was first directed at the 12 o'clock position where a paracentesis port was fashioned. Shugar solution followed by Viscoat was instilled into the eye. Attention was then directed to the 8:30 position where a triplanar incision was made in a near-clear manner using a keratome. A continuous capsulorrhexis was then made using a combination of the cystotome and Utrata forceps. Hydrodissection was achieved using a balanced salt solution, and the lens rotated nicely. Phacoemulsification was then done using a modified [id number] technique without complication. Phaco time was 5.05 CDE. The remaining cortex was removed using the irrigation/aspiration handpiece. Provisc was then instilled into the eye. A Technis lens, model [id number], at 15.5 diopters was then placed in the capsular bag using an [place] injector. The remaining viscoelastic was removed using the irrigation/aspiration forceps. All wounds were then checked and found to be watertight. The lid speculum and drapes were removed. Maxitrol ointment was placed in the patient's right eye, and the eye was shielded. The patient tolerated the procedure well. The patient was instructed to follow up tomorrow. All needle and sponge counts were correct at the end of the procedure. Sandie Smith MD /[id number]
== END ==
LOC: JP.SDS 00:13
PROVIDERS: ATTEND Ophthalmology
DX: H25.11 Age-related nuclear cataract, right eye (principal); K21.9 Gastro-esophageal reflux disease without esophagitis; Z88.0 Allergy status to penicillin
CPT/HCPCS: 66984; C1780

== ENCOUNTER 2017-07-02 06:39 | Day surgery (SDC) | payer MEDICARE, BC ==
[~2017-07-02 06:39] MED LIST: Sodium Chloride 0.9% 10 ML Syringe FLUSH PRN
[2017-07-02 08:41] VITALS: BP 131/82
--- NOTE | 2017-07-03 08:44 | OR ---
DATE OF PROCEDURE: 07/02/2017 POSTOPERATIVE CARE: Postoperative care will be provided mainly at the [address] [place] [address] [facility] in conjunction with [facility]. PREOPERATIVE DIAGNOSIS: Cataract, left eye. PREOPERATIVE DIAGNOSIS: Cataract, left eye. PROCEDURE: Cataract extraction, phacoemulsification with intraocular lens placement, left eye. ANESTHESIA: Topical and intracameral. ESTIMATED BLOOD LOSS: Minimal. COMPLICATIONS: None. PATHOLOGY SPECIMENS: None. SURGICAL FINDINGS: None. INDICATION FOR PROCEDURE: The patient is a 66-year-old female with history of a visually significant cataract in the left eye, which interfered with activities of daily living. This consisted of a nuclear sclerosis cataract. Following careful discussion of the risks, benefits and alternatives to cataract extraction with intraocular lens placement including blindness and , the patient elected to proceed, and informed, written consent was obtained prior to the procedure. DESCRIPTION OF THE PROCEDURE: The patient was previously identified, and a renae placed above the left eye. All sources, including the patient, indicated that the left eye was the correct eye. The patient was subsequently taken to the operating room where standard monitors were applied. The patient was then prepped and draped in the usual sterile fashion for ophthalmic surgery. Attention was first directed at the 12 o'clock position where a paracentesis port was fashioned. Shugar solution followed by Viscoat was instilled into the eye. Attention was then directed to the 8:30 position where a triplanar incision was made in a near-clear manner using a keratome. A continuous capsulorrhexis was then made using a combination of the cystotome and Utrata forceps. Hydrodissection was achieved using a balanced salt solution, and the lens rotated nicely. Phacoemulsification was then done using a modified [id number] technique without complication. Phaco time was 4.93 CDE. The remaining cortex was removed using the irrigation/aspiration handpiece. Provisc was then instilled into the eye. A Technis lens, model [id number], at 13.5 diopters was then placed in the capsular bag using an [place] injector. The remaining viscoelastic was removed using the irrigation/aspiration forceps. All wounds were then checked and found to be watertight. The lid speculum and drapes were removed. Maxitrol ointment was placed in the patient's left eye, and the eye was shielded. The patient tolerated the procedure well. The patient was instructed to follow up tomorrow. All needle and sponge counts were correct at the end of the procedure. Sandie Smith MD /[id number]
== END 2017-07-02 08:44 | disposition home or self-care (01) ==
LOC: JP.SDS 06:39
PROVIDERS: ATTEND Ophthalmology
DX: H25.12 Age-related nuclear cataract, left eye (principal); Z88.0 Allergy status to penicillin
CPT/HCPCS: 66984; C1780; J7050

== ENCOUNTER 2017-08-26 08:58 | Inpatient (IN) | payer MEDICARE, BC ==
[2017-08-26] MEDS ORDERED: Gabapentin 300 MG Cap PO ONE (09:30)
[2017-08-26] MEDS ORDERED: Scopolamine 1.5 MG Transdermal Patch TOP SCH (09:30)
[2017-08-26] MEDS ORDERED: Gentamicin 40 MG/ML 2 ML Vial ONE (09:41)
[2017-08-26] MEDS ORDERED: Propofol 200 MG/20 ML SDV ONE ×3 (09:42→13:26)
[2017-08-26] MEDS ORDERED: Midazolam 1 MG/ML 2 ML SDV ONE (09:42)
[2017-08-26] MEDS ORDERED: fentaNYL 100 MCG/2 ML SDV ONE (09:42)
[2017-08-26] MEDS: Lactated Ringers 1,000 ML IV SCH ×2 (09:44→22:43)
[2017-08-26] MEDS ORDERED: Clindamycin Phosphate 900 MG in Sodium Chloride 0.9% 100 ML IV ONE (10:30)
[2017-08-26] MEDS ORDERED: Ketamine 500 MG/5 ML MDV IV SCH (10:45)
[2017-08-26] MEDS ORDERED: Ropivacaine 49.25 ML, Ketorolac 30 MG, EPINEPHrine 0.5 MG, cloNIDine 80 MCG, Sodium Chl... INJECT ONE ×5 (10:45)
[2017-08-26] MEDS: Tranexamic Acid 900 MG in Sodium Chloride 0.9% 50 ML IV SCH ×2 (12:00→14:22)
[2017-08-26] MEDS ORDERED: Lactated Ringers 1,000 ML ONE (12:38)
[2017-08-26] MEDS ORDERED: Linezolid 200 MG/100 ML Bag IRR ONE (13:00)
[2017-08-26] MEDS ORDERED: Meropenem 500 MG SDV ONE (13:17)
[2017-08-26] MEDS ORDERED: Linezolid 600 MG in Premix Bag 1 BAG IV ONE (13:19)
--- NOTE | 2017-08-26 13:35 | CR ---
Pelvis 1V or 2V INDICATION: CHECK HIP IMPLANT STATUS FINDINGS: AP portable x-ray. Right total hip arthroplasty is partially visualized. Postoperative gray ges lumbar spine fusion. Implant projected over the left hemipelvis.
[2017-08-26] MEDS ORDERED: Naloxone 0.4 MG/ML SDV IVPUSH PRN (13:53)
[2017-08-26] MEDS ORDERED: oxyCODONE 5 MG Tab PO PRN (13:53)
[2017-08-26] MEDS ORDERED: Ondansetron 4 MG/2 ML SDV IVPUSH PRN (13:53)
[2017-08-26] MEDS ORDERED: Aluminum Hydroxide/Magnesium Hydroxide/Simethicone Susp 30 ML Cup PO PRN (13:53)
[2017-08-26] MEDS ORDERED: Zolpidem 5 MG Tab PO PRN (13:53)
[2017-08-26] MEDS ORDERED: Sennosides 8.6 MG Tab PO PRN (13:53)
[2017-08-26] MEDS ORDERED: Ketorolac 30 MG/ML SDV IVPUSH PRN ×2 (13:53→15:22)
[2017-08-26] MEDS ORDERED: traMADol 50 MG Tab PO PRN (13:53)
[2017-08-26] MEDS ORDERED: Magnesium Hydroxide 400 MG/5 ML Susp 30 ML Cup PO PRN (13:53)
[2017-08-26] MEDS ORDERED: Bisacodyl 5 MG Tab PO PRN (13:53)
[2017-08-26] MEDS ORDERED: diphenhydrAMINE 50 MG/ML SDV IVPUSH PRN (13:53)
[2017-08-26] MEDS ORDERED: Acetaminophen 1,000 MG in Premix Bag 1 BAG IV ONE (14:15)
[2017-08-26] MEDS ORDERED: Sodium Chloride 0.9% 500 ML IV SCH (14:15)
[2017-08-26] MEDS ORDERED: Lactated Ringers 500 ML IV ONE (14:30)
[2017-08-26] MEDS ORDERED: Diazepam 5 MG Tab PO PRN (15:23)
[2017-08-26] MEDS: Meropenem 500 MG in Sodium Chloride 0.9% 50 ML IV SCH ×2 (15:56→23:18)
[2017-08-26] MEDS: Morphine 2 MG/ML Syringe IVPUSH PRN ×2 (16:50→19:17)
[2017-08-26] MEDS: hydrOXYzine HCl 100 MG/2 ML SDV IM PRN ×2 (18:55→19:18)
[2017-08-26] MEDS: Docusate Sodium 100 MG Cap PO SCH (20:20)
--- NOTE | 2017-08-26 20:35 | OR ---
DATE OF PROCEDURE: 08/26/2017 PREOPERATIVE DIAGNOSIS: Left hip primary osteoarthritis. POSTOPERATIVE DIAGNOSES: 1. Left hip primary osteoarthritis. 2. Left acetabular fracture. PROCEDURE: Left hip Girdlestone procedure. CO-SURGEON: Edward Martell MD BILLET HEADER: Liliya Morin NP. Physician porcelain buildup assistant, Liliya Morin NP, played an essential role in assisting in this case, helping to position the patient, retract structures as needed, as well as suturing and cutting sutures as indicated. Her presence improved patient's safety and decreased operative time. ANESTHESIA: Spinal plus conscious sedation. FLUID: Lactated Ringer solution. ESTIMATED BLOOD LOSS: 200 mL. COMPLICATIONS: None. SPECIMEN: None. DISCHARGE DISPOSITION: Stable to PACU. INDICATIONS: The patient was seen preoperatively in the clinic. She was well known to me. I have previously done a posterior lumbar fusion on the patient. She wanted me to do a right total hip arthroplasty. However, due to some family matters that I had to attend to, this was done at [place]. Preoperative imaging confirmed the above-mentioned diagnosis. Risks and benefits of the procedure were explained to the patient. Informed consent was obtained. DETAILS OF PROCEDURE: The patient was seen preoperatively in the preop holding area by myself and the anesthesia staff where the preoperative site was marked. She was brought to the operative suite by Anesthesia where spinal anesthesia and conscious sedation was administered. She was placed into a right lateral recumbent position. All extremities were found to be well padded. She was placed on to a PEG board. Axillary roll was placed. The left lower extremity was then prepped and draped in a sterile manner. Time-out was called identifying the correct patient, correct procedure, the correct site, and antibiotics had been begun within the appropriate period of time. An incision was made approximately 6 cm proximal to the greater trochanter down to the level of the lesser trochanter through the skin. Bleeding during the case was controlled with Bovie electrocautery as well as an Aquamantys unit. I used Gelpi for initial retraction and then used lap sponges to bluntly remove the fat from the deep fascia. I then went through the deep fascia with a Bovie and then used a Charnley retractor for retraction. I then used Bovie electrocautery unit from the level of lesser trochanter down to the deep fascia of the gluteus minimus and gluteus medius preserving a small cuff of tendon for closure and then went down in a longitudinal fashion over the femoral neck. I then used a medium elevator to remove any soft tissue at the acetabulum to elevate the capsule. I then protected the femoral neck superiorly and inferiorly with sharp Homans and then performed a subluxation of the femur. I then made a saw cut using a reciprocating saw blade just under one fingerbreadths proximal to the lesser trochanter up to the level of the greater trochanter. After this had been performed, I placed sharp Homans at the acetabulum at 5 and 7 o'clock and then placed a Steinmann pin superiorly to the acetabulum. Using a large curette, I was able to remove some of the cartilage down to the medial wall. There was extensive cartilage loss on the femoral head as well as the acetabulum. I then used a 46 reamer to go medially down to the medial wall. This was performed very easily and then sequentially reamed up to a 51 keeping approximately 15 degrees of anteversion and trying to keep the cup in about 45 degrees of angle. After this had been accomplished, I then inserted my trial prosthesis. I was concerned because it was really not seating very well, so I went down on the reamer again to a 46 and repositioned the cup and then back up to a 51 and then I reversed some reamings back into it. At all times, there was sufficient anterior and posterior wall as well as no acetabular protrusio and there was no breach of the medial wall. I then inserted my 52 cup and while I was seating this, there was a fracture through the acetabulum and it was obvious that the component had gone into the pelvis. At this point, there was no drop in pressure, there was no obvious ji bleeding, so I asked Dr. Edward Martell to come in and he was kind enough to come in while I removed the implant. Both of us did this under direct visualization. I did use a laminar cost estimating engineer to just gently spread the fracture fragments and then Dr. Martell and I were able to remove the cup. He carefully inspected for any bleeding, any vascular injury, any bladder injury, nerve injury, or bowel injury and did not see evidence of that. The patient remained stable without any bleeding. I copiously irrigated with saline and then irrigated again with Zyvox. We then closed the capsule and deep musculature with #5 Ethibond in a continuous and interlocking manner. I then irrigated again and applied and then we closed the deep fascia with #1 STRATAFIX followed by #2 STRATAFIX, followed by 3-0 STRATAFIX and skin sebas followed by sterile dressing. The patient was then allowed to awaken from some conscious sedation and transferred to the hospital bed in stable condition to the PACU. I did contact Dr. Juan Hernandez immediately. He was able to call me back within about 20 minutes. We will transfer the patient to [facility] tomorrow. We have already given the patient meropenem and Zyvox intraoperatively. We will continue to do this overnight. In case of bowel injury, she will be given ice chips and kept n.p.o. overnight. We will have a CBC run every 6 hours. We do have 4 units of packed red blood cells on hand in case we do have bleeding issues. I have personally spoken with the executive director of nursing and the ICU staff regarding neuro checks. Will check her pulses every 2 hours and will have her on a DUMB WAITER OPERATOR overnight for pain control. I have spoken with her brother, Lui Gonzalez as well as her [id number], German Gonzalez, and explained the situation. I have spoken with one of the patient's sons in the past and I have advised them they call me at any time. I I have advised the family I would expect that Dr. Hernandez may apply a triflange implant, but I will allow him to discuss that with the family, as he evaluates how best to treat the patient. Orestes Martell DO /[id number]
[2017-08-26] MEDS ORDERED: Naloxone 0.4 MG/ML SDV IV PRN (21:11)
[2017-08-26] MEDS ORDERED: Morphine PF 150 MG/30 ML PCA Syringe IV PRN (21:11)
[2017-08-26] MEDS ORDERED: Morphine PF 150 MG/30 ML PCA Syringe ONE (21:19)
[2017-08-26] MEDS: Gabapentin 300 MG Cap PO SCH (21:58)
[2017-08-27] MEDS ORDERED: Linezolid 600 MG in Premix Bag 1 BAG IV SCH (02:00)
[2017-08-27] MEDS: Gabapentin 300 MG Cap PO SCH (05:28)
[2017-08-27] MEDS: Meropenem 500 MG in Sodium Chloride 0.9% 50 ML IV SCH (06:30)
[2017-08-27] MEDS ORDERED: Sodium Chloride 0.9% 10 ML Syringe FLUSH SCH (09:00)
--- NOTE | 2017-08-27 09:00 | PCM.PN ---
- General Info Functional Status: Reports: Pain Controlled - Review of Systems General: Reports: No Symptoms HEENT: Reports: No Symptoms Pulmonary: Reports: No Symptoms Cardiovascular: Reports: No Symptoms Gastrointestinal: Reports: No Symptoms Genitourinary: Reports: No Symptoms Musculoskeletal: Reports: Leg Pain, Joint Pain, Other Skin: Reports: No Symptoms Neurological: Reports: No Symptoms Psychiatric: Reports: No Symptoms - Patient Data Vitals - Most Recent: Last Vital Signs Temp 99.5 F 08/27/17 03:56 Pulse 82 08/27/17 05:37 Resp 12 08/27/17 05:37 BP 118/53 L 08/27/17 05:37 Pulse Ox 100 08/27/17 03:56 Weight - Most Recent: 189 lb I&O - Last 24 Hours: Intake & Output 08/26/17 08/27/17 08/27/17 22:59 06:59 14:59 Intake Total 950 1421 Output Total 555 360 Balance 395 1061 Lab Results Last 24 Hours: Laboratory Results - last 24 hr 08/26/17 08/26/17 08/26/17 Range/Units 09:15 14:07 20:01 WBC 4.4 L 8.3 (4.5-11.0) K/uL RBC 3.44 3.47 (3.30-5.50) M/uL Hgb 9.8 L D 10.1 L (12.0-15.0) g/dL Hct 30.1 L 30.1 L (36.0-48.0) % MCV 88 87 (80-98) fL MCH 29 29 (27-31) pg MCHC 33 34 (32-36) % Plt Count 277 103 L (150-400) K/uL Neut % (Auto) 83 H (36-66) % Lymph % (Auto) 8 L (24-44) % Chilton % (Auto) 9 H (2-6) % Eos % (Auto) 1 L (2-4) % Baso % (Auto) 0 (0-1) % Sodium (140-148) mmol/L Potassium (3.6-5.2) mmol/L Chloride (100-108) mmol/L Carbon Dioxide (21-32) mmol/L Anion Gap (5.0-14.0) mmol/L BUN (7-18) mg/dL Creatinine (0.6-1.0) mg/dL Est Cr Clr Drug Dosing mL/min Estimated GFR (MDRD) (>60) Glucose (74-106) mg/dL Calcium (8.5-10.1) mg/dL Phosphorus (2.5-4.9) mg/dL Magnesium (1.8-2.4) mg/dL Total Bilirubin (0.2-1.0) mg/dL AST (15-37) U/L ALT (12-78) U/L Alkaline Phosphatase (46-116) U/L Total Protein (6.4-8.2) g/dL Albumin (3.4-5.0) g/dL Globulin (2.3-3.5) g/dL Albumin/Globulin Ratio (1.2-2.2) Blood Type B POSITIVE Gel Antibody Screen Negative Crossmatch See Detail 08/26/17 08/27/17 08/27/17 Range/Units 20:01 04:43 04:43 WBC 6.7 (4.5-11.0) K/uL RBC 3.75 (3.30-5.50) M/uL Hgb 10.8 L (12.0-15.0) g/dL Hct 32.3 L (36.0-48.0) % MCV 86 (80-98) fL MCH 29 (27-31) pg MCHC 33 (32-36) % Plt Count 30 L (150-400) K/uL Neut % (Auto) (36-66) % Lymph % (Auto) (24-44) % Chilton % (Auto) (2-6) % Eos % (Auto) (2-4) % Baso % (Auto) (0-1) % Sodium 138 L (140-148) mmol/L Potassium 4.0 (3.6-5.2) mmol/L Chloride 103 (100-108) mmol/L Carbon Dioxide 25 (21-32) mmol/L Anion Gap 14.0 (5.0-14.0) mmol/L BUN 16 (7-18) mg/dL Creatinine 0.7 (0.6-1.0) mg/dL Est Cr Clr Drug Dosing 63.63 mL/min Estimated GFR (MDRD) > 60 (>60) Glucose 110 H (74-106) mg/dL Calcium 8.5 (8.5-10.1) mg/dL Phosphorus 5.1 H (2.5-4.9) mg/dL Magnesium 1.9 (1.8-2.4) mg/dL Total Bilirubin 0.8 D (0.2-1.0) mg/dL AST 40 H (15-37) U/L ALT 20 (12-78) U/L Alkaline Phosphatase 76 (46-116) U/L Total Protein 5.9 L (6.4-8.2) g/dL Albumin 3.2 L (3.4-5.0) g/dL Globulin 2.7 (2.3-3.5) g/dL Albumin/Globulin Ratio 1.2 (1.2-2.2) Blood Type Gel Antibody Screen Crossmatch Med Orders - Current: Current Medications Al Hydroxide/Mg Hydroxide (Mag-Al Plus) 30 ml PO Q4H PRN PRN Reason: Constipation Aspirin (Ecotrin) 325 mg PO DAILY PATTIE Bisacodyl (Dulcolax) 10 mg PO DAILY PRN PRN Reason: Constipation Diazepam (Valium.) 5 mg PO Q6H PRN PRN Reason: Spasms Last Admin: 08/26/17 17:36 Dose: 5 mg Diphenhydramine HCl (Benadryl) 25 mg IVPUSH Q4H PRN PRN Reason: Itching Docusate Sodium (Colace) 100 mg PO BID [facility] Last Admin: 08/26/17 20:20 Dose: 100 mg Gabapentin (Neurontin) 300 mg PO Q8H [facility] Last Admin: 08/27/17 05:28 Dose: 300 mg Hydroxyzine HCl (Vistaril) 50 - 100 mg IM Q6H PRN PRN Reason: Pain Last Admin: 08/26/17 19:18 Dose: 50 mg Lactated Ringer's (Ringers, Lactated) 1,000 mls @ 100 mls/hr IV ASDIRECTED [facility] Last Admin: 08/26/17 22:43 Dose: 100 mls/hr Linezolid 600 mg/ Premix 300 mls @ 300 mls/hr IV Q12H [facility] Last Admin: 08/27/17 01:24 Dose: 300 mls/hr Meropenem 500 mg/ Sodium (Chloride) 50 mls @ 100 mls/hr IV Q8H [facility] Last Admin: 08/27/17 06:30 Dose: 100 mls/hr Sodium Chloride (Normal Saline) 500 mls @ 999 mls/hr IV ASDIRECTED [facility] Ketorolac Tromethamine (Toradol) 30 mg IVPUSH Q8H PRN PRN Reason: Pain Stop: 08/31/17 13:53 Last Admin: 08/26/17 17:29 Dose: 30 mg Magnesium Hydroxide (Milk Of Magnesia) 30 ml PO BID PRN PRN Reason: Constipation Morphine Sulfate (Morphine Rn Clinical 150 Mg In 30 Ml) 0 mg IV ASDIRECTED PRN; Protocol PRN Reason: PAIN Last Admin: 08/26/17 21:32 Dose: 150 mg Naloxone HCl (Narcan) 0.1 mg IV ASDIRECTED PRN PRN Reason: RR RATE LESS THAN 12 Ondansetron HCl (Zofran) 8 mg IVPUSH Q4H PRN PRN Reason: Nausea/Vomiting Last Admin: 08/26/17 15:24 Dose: 8 mg Oxycodone HCl (Oxycodone) 10 mg PO Q4H PRN PRN Reason: Pain Stop: 08/27/17 13:53 Last Admin: 08/26/17 20:20 Dose: 10 mg Oxycodone/Acetaminophen (Percocet 325-5 Mg) 2 tab PO Q4H PRN PRN Reason: Pain Scopolamine (Transderm-Scop) 1.5 mg TOP Q72H PATTIE Stop: 08/29/17 04:00 Last Admin: 08/26/17 09:22 Dose: 1.5 mg Senna (Senna) 8.6 mg PO BID PRN PRN Reason: Constipation Sodium Chloride (Saline Flush) 10 ml FLUSH DAILY [facility] Tramadol HCl (Ultram) 100 mg PO Q6H PRN PRN Reason: Pain Zolpidem Tartrate (Ambien) 5 mg PO BEDTIME PRN PRN Reason: Sleep Discontinued Medications Ropivacaine 49.25 ml/Ketorolac Tromethamine 30 mg/Epinephrine HCl 0.5 mg/ Clonidine HCl 80 mcg/ Sodium Chloride 48.45 ml 0 ml INJECT ONETIME ONE Stop: 08/26/17 10:46 Last Admin: 08/26/17 14:12 Dose: Not Given Diazepam (Valium) 5 mg IVPUSH Q6H PRN PRN Reason: Spasms Fentanyl (Sublimaze) Confirm Administered Dose 100 mcg .ROUTE .STK-MED ONE Stop: 08/26/17 09:43 Gabapentin (Neurontin) 300 mg PO ONETIME ONE Stop: 08/26/17 09:31 Last Admin: 08/26/17 09:22 Dose: 300 mg Gentamicin Sulfate (Gentamicin) Confirm Administered Dose 240 mg .ROUTE .STK- MED ONE Stop: 08/26/17 09:42 Last Admin: 08/26/17 13:15 Dose: 240 mg Clindamycin Phosphate 900 mg/ (Sodium Chloride) 106 mls @ 200 mls/hr IV ONETIME ONE Stop: 08/26/17 11:01 Last Admin: 08/26/17 11:25 Dose: 200 mls/hr Tranexamic Acid 900 mg/ Sodium (Chloride) 59 mls @ 236 mls/hr IV Q3H [facility] Stop: 08/26/17 13:59 Last Admin: 08/26/17 14:22 Dose: 236 mls/hr Lactated Ringer's (Ringers, Lactated) Confirm Administered Dose 1,000 mls @ as directed .ROUTE .STK-MED ONE Stop: 08/26/17 12:39 Linezolid (Zyvox) Confirm Administered Dose 100 mls @ as directed .ROUTE .STK- MED ONE Stop: 08/26/17 13:18 Linezolid 600 mg/ Premix 300 mls @ 300 mls/hr IV ONETIME ONE Stop: 08/26/17 14:18 Last Admin: 08/26/17 14:10 Dose: 300 mls/hr Acetaminophen 1,000 mg/ Premix 100 mls @ 400 mls/hr IV NOW ONE Stop: 08/26/17 14:29 Last Admin: 08/26/17 15:27 Dose: 400 mls/hr Clindamycin Phosphate 600 mg/ (Sodium Chloride) 54 mls @ 100 mls/hr IV Q6H [facility] Stop: 08/27/17 05:33 Last Admin: 08/27/17 05:09 Dose: 100 mls/hr Lactated Ringer's (Ringers, Lactated) 500 mls @ 500 mls/hr IV BOLUS ONE Stop: 08/26/17 15:29 Last Admin: 08/26/17 14:00 Dose: 500 mls/hr Ketamine HCl (Ketalar) 26 mg IV ASDIRECTED [facility] Ketorolac Tromethamine (Toradol) 30 mg IVPUSH Q8H PRN PRN Reason: Pain Stop: 08/31/17 13:53 Linezolid (Zyvox) 200 mg IRR .STK-MED ONE Stop: 08/26/17 13:01 Last Admin: 08/26/17 13:00 Dose: 200 mg Meropenem (Merrem) Confirm Administered Dose 500 mg .ROUTE .STK-MED ONE Stop: 08/26/17 13:18 Midazolam HCl (Versed 1 Mg/Ml) Confirm Administered Dose 2 mg .ROUTE .STK-MED ONE Stop: 08/26/17 09:43 Morphine Sulfate (Morphine) 2 mg IVPUSH Q2H PRN PRN Reason: Pain Last Admin: 08/26/17 19:17 Dose: 2 mg Morphine Sulfate (Morphine Rn Clinical 150 Mg In 30 Ml) Confirm Administered Dose 150 mg .ROUTE .STK-MED ONE Stop: 08/26/17 21:20 Last Admin: 08/26/17 21:34 Dose: Not Given Naloxone HCl (Narcan) 0.1 mg IVPUSH ASDIRECTED PRN PRN Reason: Oversedation Stop: 08/27/17 06:00 Propofol (Diprivan 20 Ml) Confirm Administered Dose 200 mg .ROUTE .STK-MED ONE Stop: 08/26/17 09:43 Propofol (Diprivan 20 Ml) Confirm Administered Dose 200 mg .ROUTE .STK-MED ONE Stop: 08/26/17 11:57 Propofol (Diprivan 20 Ml) Confirm Administered Dose 200 mg .ROUTE .STK-MED ONE Stop: 08/26/17 13:27 - Exam General: Alert, Oriented, Cooperative, No Acute Distress HEENT: Pupils Equal, Pupils Reactive, Mucous Membr. Moist/Foraker Neck: Supple Lungs: Normal Respiratory Effort Extremities: No Pedal Edema, Limited Range of Motion Peripheral Pulses: 2+: Femoral (R), Dorsalis Pedis (R) Skin: Warm, Dry, Intact Wound/Incisions: Dressing Dry and Intact Neurological: No New Focal Deficit Psy/Mental Status: Alert, Normal Affect, Normal Mood - Problem List & Annotations (1) Left acetabular fracture SNOMED Code(s): 93390457 Code(s): S32.402A - UNSP FRACTURE OF LEFT ACETABULUM, INIT FOR CLOS FX Status: Acute Current Visit: Yes Qualifiers: Encounter type: subsequent encounter Sublocation of acetabulum: medial wall Fracture type: closed Fracture alignment: displaced Fracture healing : with routine healing Qualified Code(s): S32.472D - Displaced fracture of medial wall of left acetabulum, subsequent encounter for fracture with routine healing (2) Arthritis of left hip SNOMED Code(s): 45602607 Code(s): M19.90 - UNSPECIFIED OSTEOARTHRITIS, UNSPECIFIED SITE Status: Chronic Current Visit: No - Problem List Review Problem List Initiated/Reviewed/Updated: Yes - My Orders Last 24 Hours: My Active Orders 08/26/17 09:00 SCD [Sequential Compression Device] [OM.PC] Routine 08/26/17 09:15 RED BLOOD CELLS LP [BBK] Routine TYPE AND SCREEN [BBK] Routine 08/26/17 09:30 Lactated Ringers [Ringers, Lactated] 1,000 ml IV ASDIRECTED Scopolamine [Transderm-Scop] 1.5 mg TOP Q72H 08/26/17 15:00 Admission Status [Patient Status] [ADT] Routine 08/26/17 21:00 Gabapentin [Neurontin] 300 mg PO Q8H 08/26/17 21:11 Morphine PF [Morphine SPECIAL EDUCATION SECRETARY 150 MG in 30 ML] 0 mg IV ASDIRECTED PRN Naloxone [Narcan] 0.1 mg IV ASDIRECTED PRN - Plan Plan:: I the pleasure speaking with the patient this morning. Her brother, Lui, was there as well. We're planning transfer the patient at 1 PM to [facility] in [place]. She will be on 9 S. I explained again what happened yesterday concerning her acetabular fracture. She verbalized her understanding. I've spoken with Dr. Lexx Martell this morning and he is pleased with how she is doing as well. I've advised the patient that if she needs anything please let me know. We'll plan on sending her with a SPECIAL EDUCATION SECRETARY in the ambulance.
--- NOTE | 2017-08-27 09:49 | CR ---
Pelvis 1V or 2V INDICATION: CHECKING FOR NEEDLES, DIDN'T COUNT BEFORE OPEN FINDINGS: No evidence for metallic needle.
[2017-08-27] MEDS: Docusate Sodium 100 MG Cap PO SCH (09:53)
[2017-08-27] MEDS: Lactated Ringers 1,000 ML IV SCH (10:12)
--- NOTE | 2017-08-27 10:19 | PCM.SN ---
- Free Text/Narrative Note: this is an addendum to the progress note dated today. For clarification, it should be noted that I'm sending her to [facility] in [place] due to the availability of specialized implants necessary for the procedure. I do not feel that these implants will be available in the [place] area.
[2017-08-27] MEDS ORDERED: Aspirin 325 MG Tab.EC PO SCH (12:00)
[2017-08-27 12:09] VITALS: BP 97/66
--- NOTE | 2017-08-27 12:23 | OR ---
DATE OF PROCEDURE: 08/26/2017 PREOPERATIVE DIAGNOSIS: Penetrating laceration of left acetabulum at the time of total hip arthroplasty. POSTOPERATIVE DIAGNOSIS: Penetrating laceration of left acetabulum at the time of total hip arthroplasty. OPERATIVE PROCEDURE: 1. Exploration of penetrating wound, left pelvis (). 2. Removal of foreign body (acetabular cup) from within the pelvis ([id number]). ANESTHESIA: Spinal. INDICATIONS FOR PROCEDURE: The patient was undergoing a total hip arthroplasty when unexpectedly when replacing an acetabular cup, there was more or less a complete fracture medially through the base of the acetabulum with the cup penetrating several centimeters into the depths of the pelvis from a lateral to medial direction. The patient remained hemodynamically stable and had surprisingly somewhat minor bleeding. I was summoned by Dr. Orestes Martell in order to evaluate the situation and provide vascular control should that be necessary. After reviewing the case, the area was inspected, the acetabular cup was more or less pushed straightened from the center of the acetabulum medially. This was fairly loose and there was not more than just some minor oozing at this point. The acetabular cup was grasped and using some spreading clamps on the bone per Dr. Orestes Martell, the acetabular cup was eventually mobilized upward and delivered. Only a tiny small rim, perhaps a sardine fillet amount of musculature was divided in order to deliver the acetabular cup once it was oriented such that it fit through the soft tissue and bony defects. The underlying area was then explored. It would appear most likely that the fracture was more or less between the course of the internal and external iliac vessels. There was no major bleeding. This was far enough away that in all likelihood, there was not likely any rectal or ureteral injuries. The wound was irrigated with a combination of gentamicin and Zyvox solution and the closure was per Dr. Orestes Martlel. The patient was taken to the recovery room in satisfactory condition. In the recovery room, the patient was briefly hypertensive, but responded to relatively small bolus of lactated Ringer's and thereafter remained hemodynamically stable. She had a good femoral pulse on the left side and did not have any signs of venous congestion per se and the urine was clear and adequate at that point. Dr. Orestes Martell will be arranging transfer either later today or tomorrow for more definitive management. I think we will hold off on any imaging studies. There is a small chance that there might be some visceral injury and/or urologic injury, although I think the chances of that are small enough that they will hold off on any imaging, and she will be requiring quite extensive imaging at the receiving facility tonight or tomorrow. In lieu of that, we will cover the patient with both meropenem and Zyvox to provide maximal wide antibiotic coverage and the patient will be receiving frequent neurologic and vascular checks and serial hemoglobins. Should there be deterioration, we would then augment the plan based on the specifics at that time. Edward Martell MD /[id number]
--- NOTE | 2017-08-27 12:32 | PN ---
DATE OF SERVICE: 08/27/2017 The patient has been clinically stable overnight. Her hemoglobin has actually gone up a little bit, so we are not seeing any significant bleeding. Her urine output has been satisfactory and urine remains clear. She is not complaining of any visceral-type discomfort. Pain control was initially a problem, but with some continuous Dilaudid STAPLE FIBER WASHER that appears to be more satisfactory at this point. She is going to be transferred to [facility] for reconstructive management of the acetabular fracture. She continued to have good femoral pulse and no significant problems with picture of any venous congestion per se. The imaging which will look at the viscera will be completed in the [facility] workup. Edward Martell MD /[id number]
--- NOTE | 2017-08-27 12:38 | PN ---
DATE OF SERVICE: 08/27/2017 The patient has been clinically stable overnight. Her hemoglobin has actually gone up a little bit, so we are not seeing any significant bleeding. Her urine output has been satisfactory and urine remains clear. She is not complaining of any visceral-type discomfort. Pain control was initially a problem, but with some continuous Dilaudid COUNTRY PRINTER, that appears to be more satisfactory at this point. She is going to be transferred to [facility] for reconstructive management of the acetabular fracture. She continued to have a good femoral pulse and no significant problems with picture of any venous congestion per se. The imaging, which will look at the viscera, will be completed in the [facility]' workup. Edward Martell MD /[id number]
[2017-08-27] MEDS ORDERED: Acetaminophen/oxyCODONE 325-5 MG Tab PO PRN (13:53)
--- NOTE | 2017-09-14 11:04 | PCM.DCSUM1 ---
Discharge Summary - Discharge Data Discharge Date: 08/27/17 Discharge Disposition: DC/Tfer to Acute Hospital 02 Condition: Good - Discharge Diagnosis/Problem(s) (1) Left acetabular fracture SNOMED Code(s): 23240897 ICD Code: S32.402A - UNSP FRACTURE OF LEFT ACETABULUM, INIT FOR CLOS FX Status: Acute Qualifiers: Encounter type: subsequent encounter Sublocation of acetabulum: medial wall Fracture type: closed Fracture alignment: displaced Fracture healing : with routine healing Qualified Code(s): S32.472D - Displaced fracture of medial wall of left acetabulum, subsequent encounter for fracture with routine healing (2) Arthritis of left hip SNOMED Code(s): 46991927 ICD Code: M19.90 - UNSPECIFIED OSTEOARTHRITIS, UNSPECIFIED SITE Status: Chronic - Patient Summary/Data Consults: Consultations 08/26/17 13:53 OT Evaluation and Treatment [CONS] Routine Please Evaluate and Treat. OT Reason for Consult: Strengthening This query below is only for informational purposes and is not editable. PT Evaluation and Treatment [CONS] Routine Please Evaluate and Treat. PT Reason for Consult: Strengthening This query below is only for informational purposes and is not editable. - Discharge Plan Home Medications: Home Meds FLUoxetine HCl [Fluoxetine HCl] 40 mg PO DAILY 02/15/14 [History] Hydrochlorothiazide 25 mg PO DAILY 02/15/14 [History] Aspirin [Adult Low Dose Aspirin EC] 81 mg PO BID 04/13/14 [History] Omeprazole 40 mg PO DAILY 08/26/16 [History] Ibuprofen 800 mg PO Q6H PRN 04/16/17 [History] Gabapentin [Neurontin] 600 mg PO TID PRN 05/07/17 [History] - General Info Functional Status: Reports: Pain Controlled - Review of Systems General: Reports: No Symptoms HEENT: Reports: No Symptoms Pulmonary: Reports: No Symptoms Cardiovascular: Reports: No Symptoms Gastrointestinal: Reports: No Symptoms Genitourinary: Reports: No Symptoms Musculoskeletal: Reports: Leg Pain, Joint Pain Skin: Reports: No Symptoms Neurological: Reports: No Symptoms Psychiatric: Reports: No Symptoms - Patient Data Vitals - Most Recent: Last Vital Signs Temp 100.4 F 08/27/17 08:00 Pulse 84 08/27/17 12:00 Resp 10 L 08/27/17 12:00 BP 97/66 08/27/17 12:00 Pulse Ox 96 08/27/17 12:00 Weight - Most Recent: 189 lb Med Orders - Current: Current Medications Discontinued Medications Al Hydroxide/Mg Hydroxide (Mag-Al Plus) 30 ml PO Q4H PRN PRN Reason: Constipation Aspirin (Ecotrin) 325 mg PO DAILY [facility] Last Admin: 08/27/17 12:43 Dose: Not Given Bisacodyl (Dulcolax) 10 mg PO DAILY PRN PRN Reason: Constipation Ropivacaine 49.25 ml/Ketorolac Tromethamine 30 mg/Epinephrine HCl 0.5 mg/ Clonidine HCl 80 mcg/ Sodium Chloride 48.45 ml 0 ml INJECT ONETIME ONE Stop: 08/26/17 10:46 Last Admin: 08/26/17 14:12 Dose: Not Given Diazepam (Valium) 5 mg IVPUSH Q6H PRN PRN Reason: Spasms Diazepam (Valium.) 5 mg PO Q6H PRN PRN Reason: Spasms Last Admin: 08/26/17 17:36 Dose: 5 mg Diphenhydramine HCl (Benadryl) 25 mg IVPUSH Q4H PRN PRN Reason: Itching Docusate Sodium (Colace) 100 mg PO BID [facility] Last Admin: 08/27/17 09:53 Dose: Not Given Fentanyl (Sublimaze) Confirm Administered Dose 100 mcg .ROUTE .STK-MED ONE Stop: 08/26/17 09:43 Gabapentin (Neurontin) 300 mg PO ONETIME ONE Stop: 08/26/17 09:31 Last Admin: 08/26/17 09:22 Dose: 300 mg Gabapentin (Neurontin) 300 mg PO Q8H [facility] Last Admin: 08/27/17 05:28 Dose: 300 mg Gentamicin Sulfate (Gentamicin) Confirm Administered Dose 240 mg .ROUTE .STK- MED ONE Stop: 08/26/17 09:42 Last Admin: 08/26/17 13:15 Dose: 240 mg Hydroxyzine HCl (Vistaril) 50 - 100 mg IM Q6H PRN PRN Reason: Pain Last Admin: 08/26/17 19:18 Dose: 50 mg Clindamycin Phosphate 900 mg/ (Sodium Chloride) 106 mls @ 200 mls/hr IV ONETIME ONE Stop: 08/26/17 11:01 Last Admin: 08/26/17 11:25 Dose: 200 mls/hr Lactated Ringer's (Ringers, Lactated) 1,000 mls @ 100 mls/hr IV ASDIRECTED [facility] Last Admin: 08/27/17 10:12 Dose: 100 mls/hr Tranexamic Acid 900 mg/ Sodium (Chloride) 59 mls @ 236 mls/hr IV Q3H [facility] Stop: 08/26/17 13:59 Last Admin: 08/26/17 14:22 Dose: 236 mls/hr Lactated Ringer's (Ringers, Lactated) Confirm Administered Dose 1,000 mls @ as directed .ROUTE .STK-MED ONE Stop: 08/26/17 12:39 Linezolid 600 mg/ Premix 300 mls @ 300 mls/hr IV ONETIME ONE Stop: 08/26/17 14:18 Last Admin: 08/26/17 14:10 Dose: 300 mls/hr Acetaminophen 1,000 mg/ Premix 100 mls @ 400 mls/hr IV NOW ONE Stop: 08/26/17 14:29 Last Admin: 08/26/17 15:27 Dose: 400 mls/hr Clindamycin Phosphate 600 mg/ (Sodium Chloride) 54 mls @ 100 mls/hr IV Q6H [facility] Stop: 08/27/17 05:33 Last Admin: 08/27/17 05:09 Dose: 100 mls/hr Linezolid 600 mg/ Premix 300 mls @ 300 mls/hr IV Q12H [facility] Last Admin: 08/27/17 01:24 Dose: 300 mls/hr Meropenem 500 mg/ Sodium (Chloride) 50 mls @ 100 mls/hr IV Q8H [facility] Last Admin: 08/27/17 06:30 Dose: 100 mls/hr Sodium Chloride (Normal Saline) 500 mls @ 999 mls/hr IV ASDIRECTED [facility] Lactated Ringer's (Ringers, Lactated) 500 mls @ 500 mls/hr IV BOLUS ONE Stop: 08/26/17 15:29 Last Admin: 08/26/17 14:00 Dose: 500 mls/hr Ketamine HCl (Ketalar) 26 mg IV ASDIRECTED [facility] Ketorolac Tromethamine (Toradol) 30 mg IVPUSH Q8H PRN PRN Reason: Pain Stop: 08/31/17 13:53 Ketorolac Tromethamine (Toradol) 30 mg IVPUSH Q8H PRN PRN Reason: Pain Stop: 08/31/17 13:53 Last Admin: 08/26/17 17:29 Dose: 30 mg Linezolid (Zyvox) 200 mg IRR .STK-MED ONE Stop: 08/26/17 13:01 Last Admin: 08/26/17 13:00 Dose: 200 mg Magnesium Hydroxide (Milk Of Magnesia) 30 ml PO BID PRN PRN Reason: Constipation Meropenem (Merrem) Confirm Administered Dose 500 mg .ROUTE .STK-MED ONE Stop: 08/26/17 13:18 Midazolam HCl (Versed 1 Mg/Ml) Confirm Administered Dose 2 mg .ROUTE .STK-MED ONE Stop: 08/26/17 09:43 Morphine Sulfate (Morphine) 2 mg IVPUSH Q2H PRN PRN Reason: Pain Last Admin: 08/26/17 19:17 Dose: 2 mg Morphine Sulfate (Morphine De Icer Installer 150 Mg In 30 Ml) 0 mg IV ASDIRECTED PRN; Protocol PRN Reason: PAIN Last Admin: 08/26/17 21:32 Dose: 150 mg Morphine Sulfate (Morphine De Icer Installer 150 Mg In 30 Ml) Confirm Administered Dose 150 mg .ROUTE .STK-MED ONE Stop: 08/26/17 21:20 Last Admin: 08/26/17 21:34 Dose: Not Given Naloxone HCl (Narcan) 0.1 mg IVPUSH ASDIRECTED PRN PRN Reason: Oversedation Stop: 08/27/17 06:00 Naloxone HCl (Narcan) 0.1 mg IV ASDIRECTED PRN PRN Reason: RR RATE LESS THAN 12 Ondansetron HCl (Zofran) 8 mg IVPUSH Q4H PRN PRN Reason: Nausea/Vomiting Last Admin: 08/26/17 15:24 Dose: 8 mg Oxycodone HCl (Oxycodone) 10 mg PO Q4H PRN PRN Reason: Pain Stop: 08/27/17 13:53 Last Admin: 08/26/17 20:20 Dose: 10 mg Oxycodone/Acetaminophen (Percocet 325-5 Mg) 2 tab PO Q4H PRN PRN Reason: Pain Propofol (Diprivan 20 Ml) Confirm Administered Dose 200 mg .ROUTE .STK-MED ONE Stop: 08/26/17 09:43 Propofol (Diprivan 20 Ml) Confirm Administered Dose 200 mg .ROUTE .STK-MED ONE Stop: 08/26/17 11:57 Propofol (Diprivan 20 Ml) Confirm Administered Dose 200 mg .ROUTE .STK-MED ONE Stop: 08/26/17 13:27 Scopolamine (Transderm-Scop) 1.5 mg TOP Q72H [facility] Stop: 08/29/17 04:00 Last Admin: 08/26/17 09:22 Dose: 1.5 mg Senna (Senna) 8.6 mg PO BID PRN PRN Reason: Constipation Sodium Chloride (Saline Flush) 10 ml FLUSH DAILY [facility] Last Admin: 08/27/17 09:52 Dose: Not Given Tramadol HCl (Ultram) 100 mg PO Q6H PRN PRN Reason: Pain Zolpidem Tartrate (Ambien) 5 mg PO BEDTIME PRN PRN Reason: Sleep - Exam General: Reports: Alert, Oriented HEENT: Reports: Pupils Equal, Pupils Reactive, EOMI, Mucous Membr. Moist/[place] Neck: Reports: Supple Lungs: Reports: Normal Respiratory Effort Back Exam: Reports: Normal Inspection Extremities: Normal Capillary Refill, Joint Swelling, Leg Pain, Limited Range of Motion Skin: Reports: Warm, Dry, Intact Wound/Incisions: Reports: Healing Well, Dressing Dry and Intact, No Drainage Neurological: Reports: No New Focal Deficit Psy/Mental Status: Reports: Alert, Normal Affect, Normal Mood Physical Findings Comments:: Left femoral and dorsalis pedis pulses plus to 4. Good range of motion in ankle. Range of motion knee and hip were not tested secondary to the acetabular fracture. Patient is answering all questions well. She is no longer disoriented after anesthesia. I've discussed with her plans for transfer to [facility] for possible plating and tri-flange cup placement. All questions were answered. I did discuss plans with the family as well. Discharge Operative/Procedures - Procedures Performed Operations: left hip girdlestone procedure LP Indication: CSF analysis Arterial Line Indication: hemodynamic monitoring Chest Tube Indication: pneumothorax Thoracentesis Indication: pleural effusion Paracentesis Indication: ascites *Q Meaningful Use (DIS) - VTE *Q VTE Criteria *Q: - Stroke *Q Stroke Criteria *Q: - AMI *Q AMI Criteria *Q:
== END 2017-08-27 13:25 | DRG 464 ==
LOC: JP.SDS 08:58 → JP.MS 08:58 → EDSTATUS 11:00 → JP.ICU 13:53
PROVIDERS: ADMIT Orthopaedic Surgery; ATTEND Orthopaedic Surgery
PROC: 0QB70ZZ Excision of Left Upper Femur, Open Approach (ICD-10-PCS; principal; 2017-08-26)
PROC: 0SPB0JZ Removal of Synthetic Substitute from Left Hip Joint, Open Approach (ICD-10-PCS; 2017-08-26)
PROC: 0QH Lower Bones, Insertion (ICD-10-PCS; 2017-08-26)
PROC: 0SHB08Z Insertion of Spacer into Left Hip Joint, Open Approach (ICD-10-PCS; 2017-08-26)
DX: M16.12 Unilateral primary osteoarthritis, left hip (principal); M96.662 Fracture of femur following insertion of orthopedic implant, joint prosthesis, or bone plate, left leg; T84.021A Dislocation of internal left hip prosthesis, initial encounter; Y65.8 Other specified misadventures during surgical and medical care; Y79.3 Surgical instruments, materials and orthopedic devices (including sutures) associated with adverse incidents; Y92.234 Operating room of hospital as the place of occurrence of the external cause; I10 Essential (primary) hypertension; K21.9 Gastro-esophageal reflux disease without esophagitis; Z86.14 Personal history of Methicillin resistant Staphylococcus aureus infection; Z98.1 Arthrodesis status; H54.7 Unspecified visual loss; M54.9 Dorsalgia, unspecified; G89.29 Other chronic pain; Z96.641 Presence of right artificial hip joint; Z96.659 Presence of unspecified artificial knee joint; Z88.0 Allergy status to penicillin; Z79.82 Long term (current) use of aspirin
CPT/HCPCS: 36415; 72170; 72170-26; 80053; 83735; 84100; 85025; 85027; 86850; 86900; 86901; 86920; 86922; A9270-GY; C1776; J0131; J1580; J1885; J2020; J2185; J2250; J2270; J2405; J2704; J3010; J3410; J7030; J7050; J7120; S0077

== ENCOUNTER 2019-11-30 07:42 | Day surgery (SDC) | payer MEDICARE, BC ==
[~2019-11-30 07:42] MED LIST changes: +Bupivacaine 0.5% 30 ML SDV ONE; +Lidocaine 0.5% 50 ML SDV ONE; +Midazolam 1 MG/ML 2 ML SDV ONE; +Propofol 200 MG/20 ML SDV ONE; -Sodium Chloride 0.9% 10 ML Syringe FLUSH PRN; +fentaNYL 100 MCG/2 ML SDV ONE
[2019-11-30] MEDS ORDERED: Nozin Nasal Sanitizer NASBOTH ONE (08:15)
[2019-11-30] MEDS ORDERED: Lactated Ringers 1,000 ML IV SCH (08:15)
[2019-11-30] MEDS ORDERED: ceFAZolin 1 GM in Premix Bag 1 BAG IV ONE (09:00)
[2019-11-30] MEDS ORDERED: Albuterol/Ipratropium 3.0-0.5 MG/3 ML Neb Soln NEB ONE (09:48)
[2019-11-30 11:58] VITALS: BP 127/74; PULSE 83
--- NOTE | 2019-12-06 08:32 | OR ---
DATE OF PROCEDURE: 11/30/2019 SURGEON: Jensen Carcamo MD PREOPERATIVE DIAGNOSIS: Left carpal tunnel syndrome. POSTOPERATIVE DIAGNOSIS: Left carpal tunnel syndrome. PROCEDURE: Left carpal tunnel release. ANESTHESIA: Lexii block with sedation. INDICATIONS: Rhiannon is a 68-year-old female with a history of persistent tingling and numbness in the left hand, difficulty with shape hand. She has failed conservative treatment, including injection in the carpal tunnel. She now presents for carpal tunnel release. DESCRIPTION OF PROCEDURE: After adequate regional anesthesia was obtained, the left hand was prepped and draped in a sterile fashion. Supplemental local anesthetic was placed in the palm. Longitudinal incision was made distal to the wrist crease in line with the 4th finger and carried down through the subcutaneous tissues. Transverse carpal ligament was identified. This was divided under direct visualization. Contents of the carpal tunnel were evaluated. Moderate thickening of the synovium was present. On slight compression, hourglass fashion of the median nerve was noted beneath the transverse ligament. The ligament was transected proximally and distally and transection confirmed by both visualization and palpation. Once this was accomplished, the wound was irrigated. The skin was then closed in a mattress fashion using 3-0 nylon. Sterile dressing was then applied. The patient tolerated the procedure very well. There were no complications. She was taken from the operating room in a stable condition. Jensen Carcamo MD /[id number]
== END 2019-11-30 12:12 | disposition home or self-care (01) ==
LOC: JP.SDS 07:42
PROVIDERS: ATTEND Specialist
DX: G56.02 Carpal tunnel syndrome, left upper limb (principal); I10 Essential (primary) hypertension; F41.9 Anxiety disorder, unspecified; E66.9 Obesity, unspecified; Z68.35 Body mass index [BMI] 35.0-35.9, adult; Z88.0 Allergy status to penicillin; Z98.890 Other specified postprocedural states
CPT/HCPCS: 36415; 80048; 85027; 94640; A9270-GY; J0690; J2001; J2250; J2704; J3010; J3490; J7120; J7620-GY

== ENCOUNTER 2020-04-02 07:49 | Inpatient (IN) | payer MEDICARE, BC ==
[~2020-04-02 07:49] MED LIST changes: -Lidocaine 0.5% 50 ML SDV ONE; -Midazolam 1 MG/ML 2 ML SDV ONE; -Propofol 200 MG/20 ML SDV ONE; -fentaNYL 100 MCG/2 ML SDV ONE
[2020-04-02] MEDS ORDERED: Midazolam 1 MG/ML 2 ML SDV ONE (08:14)
[2020-04-02] MEDS ORDERED: Propofol 200 MG/20 ML SDV ONE ×3 (08:14→13:09)
[2020-04-02] MEDS ORDERED: fentaNYL 100 MCG/2 ML SDV ONE (08:14)
[2020-04-02] MEDS ORDERED: Lactated Ringers 1,000 ML IV SCH (08:30)
[2020-04-02] MEDS ORDERED: Nozin Nasal Sanitizer NASBOTH ONE (08:30)
[2020-04-02] MEDS ORDERED: ceFAZolin 1 GM in Premix Bag 1 BAG IV ONE (08:30)
[2020-04-02] MEDS ORDERED: Bupivacaine 0.25% 10 ML SDV ONE (10:41)
[2020-04-02] MEDS ORDERED: Povidone-Iodine 10% Soln 118.25 ML Bottle ONE (10:41)
[2020-04-02] MEDS ORDERED: Lactated Ringers 1,000 ML ONE (13:12)
[2020-04-02] MEDS ORDERED: Magnesium Hydroxide 400 MG/5 ML Susp 30 ML Cup PO PRN (13:44)
[2020-04-02] MEDS ORDERED: Morphine 2 MG/ML Syringe IVPUSH PRN (13:44)
[2020-04-02] MEDS ORDERED: Ondansetron 4 MG/2 ML SDV IVPUSH PRN (13:44)
[2020-04-02] MEDS ORDERED: Nitroglycerin 0.4 MG Tab.SL SL PRN (14:00)
[2020-04-02] MEDS ORDERED: Ibuprofen 200 MG Tab PO PRN (14:08)
[2020-04-02] MEDS: Acetaminophen/oxyCODONE 325-5 MG Tab PO PRN ×3 (15:26→23:36)
--- NOTE | 2020-04-02 16:14 | CR ---
Knee 1V or 2V Lt CLINICAL HISTORY: Postop FINDINGS: Patient is status post recent left knee hemiarthroplasty. Components appear well seated. Impression: Left knee hemiarthroplasty
[2020-04-02] MEDS ORDERED: HYDROmorphone 0.5 MG/0.5 ML Syringe IVPUSH PRN (17:12)
[2020-04-02] MEDS ORDERED: HYDROmorphone 0.5 MG/0.5 ML Syringe IVPUSH ONE (17:30)
[2020-04-02] MEDS: ceFAZolin 1 GM in Premix Bag 1 BAG IV SCH (17:54)
[2020-04-02] MEDS: Pramipexole 0.5 MG Tab PO SCH ×2 (18:01→21:45)
[2020-04-02] MEDS: Ketorolac 30 MG/ML SDV IVPUSH SCH (19:34)
[2020-04-02] MEDS: Sodium Chloride 0.9% 1,000 ML IV SCH (19:41)
[2020-04-02] MEDS: Docusate Sodium 100 MG Cap PO SCH (21:36)
[2020-04-03] MEDS: ceFAZolin 1 GM in Premix Bag 1 BAG IV SCH ×2 (02:01→09:30)
[2020-04-03] MEDS: Ketorolac 30 MG/ML SDV IVPUSH SCH ×4 (02:02→19:33)
[2020-04-03] MEDS: Acetaminophen/oxyCODONE 325-5 MG Tab PO PRN ×4 (03:49→16:04)
[2020-04-03] MEDS: Sodium Chloride 0.9% 1,000 ML IV SCH (05:13)
[2020-04-03] MEDS: Pantoprazole 40 MG Tab.CR PO SCH (07:05)
[2020-04-03] MEDS: Docusate Sodium 100 MG Cap PO SCH ×2 (08:04→21:30)
[2020-04-03] MEDS: Aspirin 81 MG Tab.Chew PO SCH (08:05)
[2020-04-03] MEDS: amLODIPine 5 MG Tab PO SCH (08:06)
[2020-04-03] MEDS: FLUoxetine 20 MG Cap PO SCH (08:06)
[2020-04-03] MEDS: Hydrochlorothiazide 25 MG Tab PO SCH (08:07)
[2020-04-03] MEDS: Nozin Nasal Sanitizer NASBOTH SCH ×2 (09:22→21:30)
--- NOTE | 2020-04-03 17:47 | PCM.SURGPN ---
- General Info Date of Service: 04/03/20 Date of Surgery/Procedure: 04/02/20 POD#: 1 Functional Status: Reports: Pain Controlled, Tolerating Diet, Ambulating, Urinating - Review of Systems General: Reports: No Symptoms HEENT: Reports: No Symptoms Pulmonary: Reports: No Symptoms Cardiovascular: Reports: No Symptoms Gastrointestinal: Reports: No Symptoms Genitourinary: Reports: No Symptoms Musculoskeletal: Reports: Leg Pain Skin: Reports: No Symptoms Neurological: Reports: No Symptoms Psychiatric: Reports: No Symptoms - Patient Data Vitals - Most Recent: Last Vital Signs Temp 35.8 C L 04/03/20 14:13 Pulse 72 04/03/20 14:13 Resp 18 04/03/20 14:13 BP 101/57 L 04/03/20 14:13 Pulse Ox 91 L 04/03/20 14:13 Weight - Most Recent: 93.395 kg I&O - Last 24 Hours: Intake & Output 04/03/20 04/03/20 04/03/20 06:59 14:59 22:59 Intake Total 1548 1774 Balance 1548 1774 Med Orders - Current: Current Medications Hydrocodone Bitart/Acetaminophen ([place] 325-5 Mg) 2 tab PO Q3H PRN PRN Reason: Pain (mild 1-3) Amlodipine Besylate (Norvasc) 5 mg PO DAILY [facility] Last Admin: 04/03/20 08:06 Dose: 5 mg Aspirin (Aspirin) 81 mg PO DAILY [facility] Last Admin: 04/03/20 08:05 Dose: 81 mg Bandage/Support Products ( Nasal Senior [employer]st [employer]) 1 applic NASBOTH BID [facility] Last Admin: 04/03/20 09:22 Dose: 1 applic Docusate Sodium (Colace) 100 mg PO BID [facility] Last Admin: 04/03/20 08:04 Dose: 100 mg Fluoxetine HCl (Prozac) 40 mg PO DAILY [facility] Last Admin: 04/03/20 08:06 Dose: 40 mg Hydrochlorothiazide (Hydrochlorothiazide) 25 mg PO DAILY [facility] Last Admin: 04/03/20 08:07 Dose: 25 mg Hydromorphone HCl (Dilaudid) 0.25 mg IVPUSH Q1H PRN PRN Reason: Breakthrough Pain Last Admin: 04/02/20 21:45 Dose: 0.25 mg Ketorolac Tromethamine (Toradol) 15 mg IVPUSH Q6H [facility] Stop: 04/04/20 14:01 Last Admin: 04/03/20 13:52 Dose: 15 mg Magnesium Hydroxide (Milk Of Magnesia) 30 ml PO BID PRN PRN Reason: Constipation Last Admin: 04/03/20 12:08 Dose: 30 ml Nitroglycerin (Nitrostat) 0.4 mg SL ASDIRECTED PRN PRN Reason: Chest Pain Ondansetron HCl (Zofran) 4 mg IVPUSH Q6H PRN PRN Reason: Nausea/Vomiting Oxycodone/Acetaminophen (Percocet 325-5 Mg) 1 - 2 tab PO Q4H PRN PRN Reason: Pain Last Admin: 04/03/20 16:04 Dose: 2 tab Pantoprazole Sodium (Protonix) 40 mg PO ACBREAKFAST [facility] Last Admin: 04/03/20 07:05 Dose: 40 mg Pramipexole Dihydrochloride (Mirapex) 0.5 mg PO Q24H [facility] Discontinued Medications Bandage/Support Products ( Nasal Senior [employer]st [employer]) 1 applic NASBOTH ONETIME ONE Stop: 04/02/20 08:31 Last Admin: 04/02/20 08:49 Dose: 1 applic Bupivacaine HCl (Marcaine 0.5%) Confirm Administered Dose 30 ml .ROUTE .STK-MED ONE Stop: 04/02/20 06:44 Bupivacaine HCl (Sensorcaine-Mpf 0.25%) Confirm Administered Dose 10 ml .ROUTE .STK-MED ONE Stop: 04/02/20 10:42 Fentanyl (Sublimaze) Confirm Administered Dose 100 mcg .ROUTE .STK-MED ONE Stop: 04/02/20 08:15 Hydromorphone HCl (Dilaudid) 0.5 mg IVPUSH Q1H ONE Stop: 04/02/20 17:31 Last Admin: 04/02/20 17:54 Dose: 0.5 mg Cefazolin Sodium/Dextrose 1 gm (/ Premix) 50 mls @ 100 mls/hr IV ONETIME ONE Stop: 04/02/20 08:59 Last Admin: 04/02/20 11:50 Dose: 100 mls/hr Lactated Ringer's (Ringers, Lactated) 1,000 mls @ 75 mls/hr IV ASDIRECTED [facility] Last Admin: 04/02/20 08:50 Dose: 75 mls/hr Lactated Ringer's (Ringers, Lactated) Confirm Administered Dose 1,000 mls @ as directed .ROUTE .STK-MED ONE Stop: 04/02/20 13:13 Cefazolin Sodium/Dextrose 1 gm (/ Premix) 50 mls @ 100 mls/hr IV Q8H [facility] Stop: 04/03/20 10:29 Last Admin: 04/03/20 09:30 Dose: 100 mls/hr Sodium Chloride (Normal Saline) 1,000 mls @ 125 mls/hr IV ASDIRECTED [facility] Last Admin: 04/03/20 05:13 Dose: 125 mls/hr Ibuprofen (Motrin) 200 mg PO Q4H PRN PRN Reason: Pain Last Admin: 04/02/20 18:26 Dose: 200 mg Midazolam HCl (Versed 1 Mg/Ml) Confirm Administered Dose 2 mg .ROUTE .STK-MED ONE Stop: 04/02/20 08:15 Morphine Sulfate (Morphine) 2 mg IVPUSH Q1H PRN PRN Reason: Breakthrough Pain Last Admin: 04/02/20 16:10 Dose: 2 mg Povidone Iodine (Betadine 10% Soln) Confirm Administered Dose 1 ml .ROUTE .STK- MED ONE Stop: 04/02/20 10:42 Last Admin: 04/02/20 13:26 Dose: 1 ml Pramipexole Dihydrochloride (Mirapex) 0.5 mg PO BEDTIME [facility] Last Admin: 04/02/20 21:45 Dose: 0.5 mg Propofol (Diprivan 20 Ml) Confirm Administered Dose 200 mg .ROUTE .STK-MED ONE Stop: 04/02/20 08:15 Propofol (Diprivan 20 Ml) Confirm Administered Dose 200 mg .ROUTE .STK-MED ONE Stop: 04/02/20 12:40 Propofol (Diprivan 20 Ml) Confirm Administered Dose 200 mg .ROUTE .STK-MED ONE Stop: 04/02/20 13:10 - Exam Wound/Incisions: Dressing Dry and Intact, No Drainage General: Alert, Oriented HEENT: Pupils Equal, Pupils Reactive, EOMI, Mucous Membr. Moist/[place] Neck: Supple Lungs: Clear to Auscultation, Normal Respiratory Effort Cardiovascular: Regular Rate, Regular Rhythm GI/Abdominal Exam: Normal Bowel Sounds, Soft, No Organomegaly Extremities: Leg Pain Skin: Warm, Dry Neurological: No New Focal Deficit Psy/Mental Status: Alert, Normal Affect Sepsis Event Note - Evaluation Sepsis Screening Result: No Definite Risk - Focused Exam Vital Signs: Vital Signs Temp Pulse Resp BP BP Pulse Ox 04/03/20 14:13 35.8 C L 72 18 101/57 L 91 L 04/03/20 10:26 36.3 C 78 18 96/52 L 95 04/03/20 08:06 112/68 04/03/20 06:49 35.3 C L 76 18 106/54 L 91 L Date Exam was Performed: 04/03/20 Time Exam was Performed: 17:42 - Problem List & Annotations (1) Osteoarthritis of knee SNOMED Code(s): 997661182 Code(s): M17.10 - UNILATERAL PRIMARY OSTEOARTHRITIS, UNSPECIFIED KNEE Status: Acute Current Visit: Yes Qualifiers: Osteoarthritis type: primary Laterality: left Qualified Code(s): M17.12 - Unilateral primary osteoarthritis, left knee (2) Status post left unicompartmental knee replacement SNOMED Code(s): 486802238, 51164000, 070946797, 896549185 Code(s): Z96.652 - PRESENCE OF LEFT ARTIFICIAL KNEE JOINT Status: Acute Current Visit: Yes (3) Knee pain, left SNOMED Code(s): 72452552 Code(s): M25.562 - PAIN IN LEFT KNEE Status: Acute Current Visit: No Qualifiers: Chronicity: chronic Qualified Code(s): M25.562 - Pain in left knee; G89.29 - Other chronic pain - Problem List Review Problem List Initiated/Reviewed/Updated: Yes - My Orders Last 24 Hours: Active Orders 24 hr Category Date Time Status Regular Diet [DIET] Diet 04/02/20 Dinner Active Aspirin Med 04/03/20 09:00 Active 81 mg PO DAILY Docusate Sodium [Colace] Med 04/02/20 21:00 Active 100 mg PO BID FLUoxetine [PROzac] Med 04/03/20 09:00 Active 40 mg PO DAILY HYDROmorphone [Dilaudid] Med 04/02/20 17:12 Active 0.25 mg IVPUSH Q1H PRN Ketorolac [Toradol] Med 04/02/20 20:00 Active 15 mg IVPUSH Q6H Nozin [ Nasal [employer]] Med 04/03/20 09:15 Active 1 applic NASBOTH BID Pantoprazole [ProTONIX] Med 04/03/20 07:30 Active 40 mg PO ACBREAKFAST Pramipexole [Mirapex] Med 04/03/20 18:00 Active 0.5 mg PO Q24H amLODIPine [Norvasc] Med 04/03/20 09:00 Active 5 mg PO DAILY hydroCHLOROthiazide Med 04/03/20 09:00 Active 25 mg PO DAILY Convert IV to Saline Lock [OM.PC] Routine Oth 04/03/20 09:01 Ordered Medication Orders Hydrocodone Bitart/Acetaminophen ([place] 325-5 Mg) 2 tab PO Q3H PRN PRN Reason: Pain (mild 1-3) Amlodipine Besylate (Norvasc) 5 mg PO DAILY [facility] Last Admin: 04/03/20 08:06 Dose: 5 mg Aspirin (Aspirin) 81 mg PO DAILY [facility] Last Admin: 04/03/20 08:05 Dose: 81 mg Bandage/Support Products ( Nasal Senior [employer]) 1 applic NASBOTH BID [facility] Last Admin: 04/03/20 09:22 Dose: 1 applic Docusate Sodium (Colace) 100 mg PO BID [facility] Last Admin: 04/03/20 08:04 Dose: 100 mg Admin: 04/02/20 21:36 Dose: 100 mg Fluoxetine HCl (Prozac) 40 mg PO DAILY [facility] Last Admin: 04/03/20 08:06 Dose: 40 mg Hydrochlorothiazide (Hydrochlorothiazide) 25 mg PO DAILY [facility] Last Admin: 04/03/20 08:07 Dose: 25 mg Hydromorphone HCl (Dilaudid) 0.25 mg IVPUSH Q1H PRN PRN Reason: Breakthrough Pain Last Admin: 04/02/20 21:45 Dose: 0.25 mg Ketorolac Tromethamine (Toradol) 15 mg IVPUSH Q6H [facility] Stop: 04/04/20 14:01 Last Admin: 04/03/20 13:52 Dose: 15 mg Admin: 04/03/20 07:23 Dose: 15 mg Admin: 04/03/20 02:02 Dose: 15 mg Admin: 04/02/20 19:34 Dose: 15 mg Magnesium Hydroxide (Milk Of Magnesia) 30 ml PO BID PRN PRN Reason: Constipation Last Admin: 04/03/20 12:08 Dose: 30 ml Nitroglycerin (Nitrostat) 0.4 mg SL ASDIRECTED PRN PRN Reason: Chest Pain Ondansetron HCl (Zofran) 4 mg IVPUSH Q6H PRN PRN Reason: Nausea/Vomiting Oxycodone/Acetaminophen (Percocet 325-5 Mg) 1 - 2 tab PO Q4H PRN PRN Reason: Pain Last Admin: 04/03/20 16:04 Dose: 2 tab Admin: 04/03/20 12:09 Dose: 2 tab Admin: 04/03/20 08:03 Dose: 2 tab Admin: 04/03/20 03:49 Dose: 2 tab Admin: 04/02/20 23:36 Dose: 2 tab Admin: 04/02/20 19:29 Dose: 2 tab Admin: 04/02/20 15:26 Dose: 2 tab Pantoprazole Sodium (Protonix) 40 mg PO ACBREAKFAST [facility] Last Admin: 04/03/20 07:05 Dose: 40 mg Pramipexole Dihydrochloride (Mirapex) 0.5 mg PO Q24H [facility] - Assessment Assessment (Free Text/Narrative):: Difficulty with pain control yesterday and last night, better today, has been walking but only a limited in hallway, mobility still impaired, does have about 90 degrees of flexion - Plan Plan (Free Text/Narrative):: Continue PT, up in [place] in AM, anticipate home tomorrow with home health to follow for PT.
[2020-04-03] MEDS ORDERED: Pramipexole 0.5 MG Tab PO SCH (18:00)
[2020-04-04] MEDS: Ketorolac 30 MG/ML SDV IVPUSH SCH ×2 (02:40→08:02)
[2020-04-04] MEDS: Acetaminophen/oxyCODONE 325-5 MG Tab PO PRN (02:46)
[2020-04-04] MEDS: FLUoxetine 20 MG Cap PO SCH (08:01)
[2020-04-04] MEDS: Acetaminophen/HYDROcodone 325-5 MG Tab PO PRN ×2 (08:05→11:53)
[2020-04-04] MEDS: Docusate Sodium 100 MG Cap PO SCH (08:06)
[2020-04-04] MEDS: Hydrochlorothiazide 25 MG Tab PO SCH (08:06)
[2020-04-04] MEDS: Nozin Nasal Sanitizer NASBOTH SCH (08:06)
[2020-04-04] MEDS: Pantoprazole 40 MG Tab.CR PO SCH (08:06)
[2020-04-04] MEDS: amLODIPine 5 MG Tab PO SCH (08:06)
[2020-04-04] MEDS: Aspirin 81 MG Tab.Chew PO SCH (08:06)
[2020-04-04 08:07] VITALS: BP 116/59
[2020-04-04 08:08] VITALS: PULSE 83
--- NOTE | 2020-04-04 12:11 | PCM.DCSUM1 ---
Discharge Summary - Hospital Course HPI Initial Comments: 69 year old female with relatively rapid onset of left knee pain. History of Osteoarthritis of the knees with right TKA. Admitted for left medial unicompartmental arthroplasty. Diagnosis: Stroke: No Modified [place] Scale: No Symptoms at All Modified [place] Scale Score: 0 - Discharge Data Discharge Date: 04/04/20 Discharge Disposition: Home, W Home Health Agency 06 Condition: Good - Referral to Home Health Date of Face to Face Encounter: 04/04/20 Reason for Homebound Status: left knee replacement Primary Care Physician: Jensen Santos Sr, MD Skilled Need: Physical Therapy - Discharge Diagnosis/Problem(s) (1) Osteoarthritis of knee SNOMED Code(s): 113887295 ICD Code: M17.10 - UNILATERAL PRIMARY OSTEOARTHRITIS, UNSPECIFIED KNEE Status: Acute Current Visit: Yes Qualifiers: Osteoarthritis type: primary Laterality: left Qualified Code(s): M17.12 - Unilateral primary osteoarthritis, left knee (2) Status post left unicompartmental knee replacement SNOMED Code(s): 782670115, 77810482, 723659329, 122569275 ICD Code: Z96.652 - PRESENCE OF LEFT ARTIFICIAL KNEE JOINT Status: Acute Current Visit: Yes (3) Knee pain, left SNOMED Code(s): 70953932 ICD Code: M25.562 - PAIN IN LEFT KNEE Status: Acute Current Visit: No Qualifiers: Chronicity: chronic Qualified Code(s): M25.562 - Pain in left knee; G89.29 - Other chronic pain - Patient Summary/Data Operative Procedure(s) Performed: left medial unicompartmental arthroplasty Complications: None Consults: Consultations 04/02/20 13:44 Consult to Case Management/Inspector Repairer [CONS] Routine Comment: Physician Instructions: Service(s) to be Consulted: Case Management Reason for Consult: Plan for Discharge OT Evaluation and Treatment [CONS] Routine Please Evaluate and Treat. OT Reason for Consult: ADL's This query below is only for informational purposes and is not editable. PT Evaluation and Treatment [CONS] Routine Please Evaluate and Treat. PT Reason for Consult: Post op Ortho Surgery This query below is only for informational purposes and is not editable. PT Evaluation and Treatment [CONS] Routine Please Evaluate and Treat. PT Reason for Consult: Post op Ortho Surgery Knee Pending Discharge: Yes, 1- 2 days Special Instructions: Schedule first outpatient PT appointment in 3-5 day post discharge. This query below is only for informational purposes and is not editable. Hospital Course: Admitted after left knee arthroplasty. Difficulty with pain control post op and limited mobility POD #1. Worked with PT and gained significantly over the course of POD #1 and is independent for home today. Pain controlled with PO medication. Dressing changed and incision is healing without complications. Plan Home Health for PT. ASA 81mg BID for one month. - Patient Instructions Diet: Usual Diet as Tolerated Activity: Apply Ice, As Tolerated, Full Weight Bearing Driving: Do Not Drive (Until off narcotic medications) Showering/Bathing: Shower in AM Notify Provider of: Fever, Increased Pain, Swelling and Redness, Drainage, Nausea and/or Vomiting Other/Special Instructions: Aspirin 81mg twice a day for DVT prophylaxis - Discharge Plan *PRESCRIPTION DRUG MONITORING PROGRAM REVIEWED*: No *COPY OF PRESCRIPTION DRUG MONITORING REPORT IN PATIENT SATHISH: No Prescriptions/Med Rec: oxyCODONE HCl/Acetaminophen [Percocet 5-325 mg Tablet] 1 - 2 each PO Q6HR PRN #50 tablet PRN Reason: Pain Home Medications: Home Meds FLUoxetine HCl [Fluoxetine HCl] 40 mg PO DAILY 02/15/14 [History] hydroCHLOROthiazide [Hydrochlorothiazide] 25 mg PO DAILY 02/15/14 [History] Omeprazole 40 mg PO DAILY 08/26/16 [History] amLODIPine [Norvasc] 5 mg PO DAILY 05/26/19 [History] Acetaminophen [Tylenol Arthritis Pain] 650 mg PO Q6H PRN 11/28/19 [History] Aspirin 81 mg PO DAILY 11/28/19 [History] Ibuprofen [Advil] 200 mg PO Q4H PRN 11/28/19 [History] Nitroglycerin [Nitrostat] 0.4 mg SL ASDIRECTED 11/28/19 [History] Pramipexole [Mirapex] 0.5 mg PO BEDTIME 11/30/19 [History] oxyCODONE HCl/Acetaminophen [Percocet 5-325 mg Tablet] 1 - 2 each PO Q6HR PRN #50 tablet 04/04/20 [Rx] Oxygen Therapy Mode: Room Air Referrals: Jensen Carcamo MD [Physician] - - Discharge Summary/Plan Comment DC Time >30 min.: Yes - General Info Functional Status: Reports: Pain Controlled, Tolerating Diet, Ambulating, Urinating - Review of Systems General: Reports: No Symptoms HEENT: Reports: No Symptoms Pulmonary: Reports: No Symptoms Cardiovascular: Reports: No Symptoms Gastrointestinal: Reports: No Symptoms Genitourinary: Reports: No Symptoms Musculoskeletal: Reports: Leg Pain, Joint Swelling Skin: Reports: No Symptoms Neurological: Reports: No Symptoms Psychiatric: Reports: No Symptoms - Patient Data Vitals - Most Recent: Last Vital Signs Temp 36.6 C 04/04/20 08:07 Pulse 83 04/04/20 08:07 Resp 16 04/04/20 08:07 BP 116/59 L 04/04/20 08:07 Pulse Ox 97 04/04/20 08:07 Weight - Most Recent: 93.395 kg I&O - Last 24 hours: Intake & Output 04/03/20 04/04/20 04/04/20 22:59 06:59 14:59 Intake Total 420 960 Output Total 200 Balance 220 960 Med Orders - Current: Current Medications Hydrocodone Bitart/Acetaminophen ([place] 325-5 Mg) 2 tab PO Q3H PRN PRN Reason: Pain (mild 1-3) Last Admin: 04/04/20 11:53 Dose: 2 tab Documented by: Amlodipine Besylate (Norvasc) 5 mg PO DAILY [facility] Last Admin: 04/04/20 08:06 Dose: 5 mg Documented by: Aspirin (Aspirin) 81 mg PO DAILY [facility] Last Admin: 04/04/20 08:06 Dose: 81 mg Documented by: Bandage/Support Products ( Nasal Television Production Clerk) 1 applic NASBOTH BID [facility] Last Admin: 04/04/20 08:06 Dose: 1 applic Documented by: Docusate Sodium (Colace) 100 mg PO BID [facility] Last Admin: 04/04/20 08:06 Dose: 100 mg Documented by: Fluoxetine HCl (Prozac) 40 mg PO DAILY [facility] Last Admin: 04/04/20 08:01 Dose: 40 mg Documented by: Hydrochlorothiazide (Hydrochlorothiazide) 25 mg PO DAILY [facility] Last Admin: 04/04/20 08:06 Dose: 25 mg Documented by: Hydromorphone HCl (Dilaudid) 0.25 mg IVPUSH Q1H PRN PRN Reason: Breakthrough Pain Last Admin: 04/02/20 21:45 Dose: 0.25 mg Documented by: Ketorolac Tromethamine (Toradol) 15 mg IVPUSH Q6H PATTIE Stop: 04/04/20 14:01 Last Admin: 04/04/20 08:02 Dose: Not Given Documented by: Magnesium Hydroxide (Milk Of Magnesia) 30 ml PO BID PRN PRN Reason: Constipation Last Admin: 04/03/20 12:08 Dose: 30 ml Documented by: Nitroglycerin (Nitrostat) 0.4 mg SL ASDIRECTED PRN PRN Reason: Chest Pain Ondansetron HCl (Zofran) 4 mg IVPUSH Q6H PRN PRN Reason: Nausea/Vomiting Oxycodone/Acetaminophen (Percocet 325-5 Mg) 1 - 2 tab PO Q4H PRN PRN Reason: Pain Last Admin: 04/04/20 02:46 Dose: 2 tab Documented by: Pantoprazole Sodium (Protonix) 40 mg PO ACBREAKFAST [facility] Last Admin: 04/04/20 08:06 Dose: 40 mg Documented by: Pramipexole Dihydrochloride (Mirapex) 0.5 mg PO Q24H [facility] Last Admin: 04/03/20 19:32 Dose: 0.5 mg Documented by: Discontinued Medications Bandage/Support Products ( Nasal Television Production Clerk) 1 applic NASBOTH ONETIME ONE Stop: 04/02/20 08:31 Last Admin: 04/02/20 08:49 Dose: 1 applic Documented by: Bupivacaine HCl (Marcaine 0.5%) Confirm Administered Dose 30 ml .ROUTE .STK-MED ONE Stop: 04/02/20 06:44 Bupivacaine HCl (Sensorcaine-Mpf 0.25%) Confirm Administered Dose 10 ml .ROUTE .STK-MED ONE Stop: 04/02/20 10:42 Fentanyl (Sublimaze) Confirm Administered Dose 100 mcg .ROUTE .STK-MED ONE Stop: 04/02/20 08:15 Hydromorphone HCl (Dilaudid) 0.5 mg IVPUSH Q1H ONE Stop: 04/02/20 17:31 Last Admin: 04/02/20 17:54 Dose: 0.5 mg Documented by: Cefazolin Sodium/Dextrose 1 gm (/ Premix) 50 mls @ 100 mls/hr IV ONETIME ONE Stop: 04/02/20 08:59 Last Admin: 04/02/20 11:50 Dose: 100 mls/hr Documented by: Lactated Ringer's (Ringers, Lactated) 1,000 mls @ 75 mls/hr IV ASDIRECTED [facility] Last Admin: 04/02/20 08:50 Dose: 75 mls/hr Documented by: Lactated Ringer's (Ringers, Lactated) Confirm Administered Dose 1,000 mls @ as directed .ROUTE .STK-MED ONE Stop: 04/02/20 13:13 Cefazolin Sodium/Dextrose 1 gm (/ Premix) 50 mls @ 100 mls/hr IV Q8H PATTIE Stop: 04/03/20 10:29 Last Admin: 04/03/20 09:30 Dose: 100 mls/hr Documented by: Sodium Chloride (Normal Saline) 1,000 mls @ 125 mls/hr IV ASDIRECTED [facility] Last Admin: 04/03/20 05:13 Dose: 125 mls/hr Documented by: Ibuprofen (Motrin) 200 mg PO Q4H PRN PRN Reason: Pain Last Admin: 04/02/20 18:26 Dose: 200 mg Documented by: Midazolam HCl (Versed 1 Mg/Ml) Confirm Administered Dose 2 mg .ROUTE .STK-MED ONE Stop: 04/02/20 08:15 Morphine Sulfate (Morphine) 2 mg IVPUSH Q1H PRN PRN Reason: Breakthrough Pain Last Admin: 04/02/20 16:10 Dose: 2 mg Documented by: Povidone Iodine (Betadine 10% Soln) Confirm Administered Dose 1 ml .ROUTE .STK- MED ONE Stop: 04/02/20 10:42 Last Admin: 04/02/20 13:26 Dose: 1 ml Documented by: Pramipexole Dihydrochloride (Mirapex) 0.5 mg PO BEDTIME [facility] Last Admin: 04/02/20 21:45 Dose: 0.5 mg Documented by: Propofol (Diprivan 20 Ml) Confirm Administered Dose 200 mg .ROUTE .STK-MED ONE Stop: 04/02/20 08:15 Propofol (Diprivan 20 Ml) Confirm Administered Dose 200 mg .ROUTE .STK-MED ONE Stop: 04/02/20 12:40 Propofol (Diprivan 20 Ml) Confirm Administered Dose 200 mg .ROUTE .STK-MED ONE Stop: 04/02/20 13:10 - Exam General: Reports: Alert, Oriented HEENT: Reports: Pupils Equal, Pupils Reactive, EOMI, Mucous Membr. Moist/[place] Neck: Reports: Supple Lungs: Reports: Clear to Auscultation, Normal Respiratory Effort Cardiovascular: Reports: Regular Rate, Regular Rhythm GI/Abdominal Exam: Normal Bowel Sounds, Soft, Non-Tender, No Distention (Female) Exam: Deferred Rectal (Female) Exam: Deferred Back Exam: Reports: Normal Inspection Extremities: Joint Swelling, Limited Range of Motion Skin: Reports: Warm, Dry Wound/Incisions: Reports: Healing Well Neurological: Reports: No New Focal Deficit Psy/Mental Status: Reports: Alert, Normal Affect, Normal Mood
--- NOTE | 2020-04-13 16:21 | OR ---
DATE OF PROCEDURE: 04/02/2020 SURGEON: Jensen Carcamo MD PREOPERATIVE DIAGNOSIS: Chondromalacia, medial femoral condyle, left knee. POSTOPERATIVE DIAGNOSIS: Osteoarthritis, left knee, medial compartment with mild chondromalacia of patella, grade 2. PROCEDURE: 1. Diagnostic arthroscopy, left knee. 2. Left medial unicompartmental arthroplasty using [employer] ZUK components with a size C femur, 2 tibia, and 8 mm polyethylene. ANESTHESIA: Spinal with sedation. INDICATIONS: Rhiannon is a 69-year-old female with a history of rapidly progressive pain in the left knee. She has failed conservative treatment. X-ray reveals some minimal joint space collapse and early DJD. MRI consistent with chondromalacia of the medial femoral condyle and mild degeneration of the meniscus. She now presents for arthroscopy of the left knee with chondroplasty and possible medial unicompartmental arthroplasty if the arthroscopy reveals significant articular cartilage loss. Risks, benefits, potential complications of procedure were discussed. DESCRIPTION OF PROCEDURE: After adequate anesthesia was obtained, patient was placed supine with a tourniquet about the left upper thigh. Left leg was prepped and draped in a sterile fashion. Leg was exsanguinated and tourniquet inflated to 300 mmHg pressure. Standard inferior, medial, and lateral portals were established. The scope was introduced. Patellofemoral joint inspected. This revealed some mild grade 2 changes in the dome of the patella with intact trochlear cartilage. Medial compartment revealed a large area of grade 3 and 4 chondromalacia with exposed subchondral bone on the major weightbearing area of the medial femoral condyle. Only minor degenerative changes were present in the meniscus. A large loose piece of articular cartilage was present within the medial joint. This was removed with the shaver. The intercondylar notch revealed intact ACL and PCL, and lateral compartment showed intact meniscus and articular cartilage. A decision was made to proceed with an unicompartmental arthroplasty due to the extent of the articular cartilage loss and the fact that the remaining two compartments showed minimal degenerative changes. The knee was drained. Scope was withdrawn. Incision was then made on the anterior aspect of the knee slightly medial of midline, carried down through the subcutaneous tissues. Medial parapatellar arthrotomy was performed and taken up to the insertion of the VMO. Anterior joint was exposed and the anterior horn of the medial meniscus was excised. The anterior lip of the tibial plateau was resected with an oscillating saw. Knee was then extended, and an extramedullary alignment jig was placed. This was aligned and secured to the tibia and the distal femur. Distal femoral cut was then made. This portion of the cutting jig was then removed and knee was flexed, proximal tibia was resected with a combination of reciprocating and oscillating saws. The cutting jig was removed. Bone fragments were removed from the knee and the remaining meniscus was excised. The femur was then sized to a C component. The C cutting jig was secured and remaining femoral cuts were made as well as the drill for the peg holes. The proximal tibia was then sized to a #2 component. Trial tibial baseplate was tapped into position, secured with a small pin and the peg holes were drilled. The trial femoral component was placed and an 8 mm trial insert was used and knee was taken through range of motion. It showed full extension and excellent flexion with approximately 2 mm of gap in both flexion and extension. The trials were removed. The knee was thoroughly irrigated with pulse lavage. The bone surfaces were dried. Components were cemented in place. Excess cement was removed and the knee was held in full extension with the trial insert until the cement cures. Knee was again taken through range of motion and flexion-extension gaps were evaluated. The 8 mm trial was removed and replaced with the final implant. Knee was irrigated including irrigation with dilute Betadine solution. The capsule was then closed with an Ethibond suture in a running locking fashion. The skin was closed with 2-0 Vicryl and a running 3-0 Monocryl. Steri-Strips were applied. Sterile dressing was then placed. The patient tolerated the procedure very well. There were no complications. She was taken from the operating room in stable condition. Jensen Carcamo MD /[id number]
== END 2020-04-04 12:45 | disposition home health service (06) | DRG 470 ==
LOC: JP.SDS 07:49 → JP.MS 13:44 → JP.SDS 04-03 11:30 → JP.MS 04-03 11:30
PROVIDERS: ADMIT Specialist; ATTEND Specialist
PROC: 0SRD0L9 Replacement of Left Knee Joint with Medial Unicondylar Synthetic Substitute, Cemented, Open Approach (ICD-10-PCS; principal; 2020-04-02)
PROC: 0SJD4ZZ Inspection of Left Knee Joint, Percutaneous Endoscopic Approach (ICD-10-PCS; 2020-04-02)
DX: M17.12 Unilateral primary osteoarthritis, left knee (principal); S83.242A Other tear of medial meniscus, current injury, left knee, initial encounter; I10 Essential (primary) hypertension; E78.5 Hyperlipidemia, unspecified; E66.9 Obesity, unspecified; K21.9 Gastro-esophageal reflux disease without esophagitis; M81.0 Age-related osteoporosis without current pathological fracture; Z68.36 Body mass index [BMI] 36.0-36.9, adult; X58.XXXA Exposure to other specified factors, initial encounter
CPT/HCPCS: 73560-26-LT; 73560-LT; 97110-GP; 97161-GP; 97165-GO; 97530-GP; A9270-GY; C1713; C1776; J0690; J1170; J1885; J2250; J2270; J2704; J3010; J3490; J7030; J7120

== ENCOUNTER → 2020-08-13 | Day surgery (SDC) | payer MEDICARE, BC ==
[~2020-08-13] MED LIST changes: -Bupivacaine 0.5% 30 ML SDV ONE; +Lactated Ringers 1,000 ML IV SCH; +Nozin Nasal Sanitizer NASBOTH ONE; +ceFAZolin 1 GM in Premix Bag 1 BAG IV ONE
[2020-08-13 07:54] VITALS: BP 123/77; PULSE 81
== END ==
LOC: JP.SDS 07:17
PROVIDERS: ATTEND Specialist
DX: M84.362A Stress fracture, left tibia, initial encounter for fracture (principal); Z53.9 Procedure and treatment not carried out, unspecified reason
CPT/HCPCS: 36415; 80053; 85027; 93005; 93010; A9270-GY

== ENCOUNTER → 2020-08-27 | Day surgery (SDC) | payer MEDICARE, BC ==
[~2020-08-27] MED LIST changes: +Acetaminophen/HYDROcodone 325-5 MG Tab PO ONE; +Acetaminophen/HYDROcodone 325-5 MG Tab PO PRN; +Lactated Ringers 1,000 ML ONE; +Midazolam 1 MG/ML 2 ML SDV ONE; +Propofol 200 MG/20 ML SDV ONE; +fentaNYL 100 MCG/2 ML SDV ONE
[2020-08-27 14:25] VITALS: BP 119/49; PULSE 81
--- NOTE | 2020-09-01 07:13 | OR ---
DATE OF PROCEDURE: 08/27/2020 SURGEON: Jensen Carcamo MD PREOPERATIVE DIAGNOSIS: Stress fracture, medial and tibial metaphysis. POSTOPERATIVE DIAGNOSIS: Stress fracture, medial and tibial metaphysis. PROCEDURE: Percutaneous screw fixation of medial and tibial metaphysis. ANESTHESIA: Spinal with sedation. INDICATIONS: Rhiannon is a 69-year-old female who underwent a medial unicompartmental arthroplasty of the knee in March of this year. She developed a stress fracture along the medial metaphysis of the tibia. She has had persistent pain despite activity modification, limited weightbearing, and bracing. She now presents for screw fixation of the fracture. Risks, benefits, and potential complications of the procedure were discussed. DESCRIPTION OF PROCEDURE: After adequate anesthesia was obtained, the patient was placed supine with a tourniquet about the upper thigh. The leg was prepped and draped in a sterile fashion. Fluoroscopic guidance was used to establish position for a guide pin just beneath the tibial component of the arthroplasty. A small stab incision was made at this location. A guide pin was then advanced across the fracture. A second pin was placed just posterior to this and parallel, and position confirmed again with fluoroscopy. A third guide pin was placed inferior to the other 2 in a triangular pattern just proximal to the distal end of the stress fracture through a separate stab incision. Position was again confirmed using fluoroscopy. Depth gauge was utilized. Cannulated drill was placed over the guide pins and cannulated screws were then placed with washers. Excellent purchase was obtained, particularly with the anterior and inferior screws which had cortical purchase. Final position was confirmed with fluoroscopy, and guide pins were removed. The procedure was performed without use of the tourniquet, and some bleeding was encountered presumably from the saphenous or branch of the saphenous vein. This was controlled with pressure, and finally was stopped with a subcutaneous 2-0 Vicryl stitch. Steri-Strips were applied and a light compressive dressing was placed. The patient tolerated the procedure very well. There were no complications. She was taken from the operating room in stable condition. Jensen Carcamo MD /[id number]
== END ==
LOC: JP.SDS 07:11
PROVIDERS: ATTEND Specialist
DX: S82.142A Displaced bicondylar fracture of left tibia, initial encounter for closed fracture (principal); I10 Essential (primary) hypertension; E66.9 Obesity, unspecified; Z88.0 Allergy status to penicillin; Z68.35 Body mass index [BMI] 35.0-35.9, adult
CPT/HCPCS: 27532; 36415; 80053; 85027; A9270; C1713; J0690; J2250; J2704; J3010; J7120

== ENCOUNTER 2021-05-06 07:07 | Inpatient (IN) | payer MEDICARE, BC ==
[~2021-05-06 07:07] MED LIST changes: -Acetaminophen/HYDROcodone 325-5 MG Tab PO ONE; -Acetaminophen/HYDROcodone 325-5 MG Tab PO PRN; -Lactated Ringers 1,000 ML IV SCH; -Lactated Ringers 1,000 ML ONE; -Midazolam 1 MG/ML 2 ML SDV ONE; -Nozin Nasal Sanitizer NASBOTH ONE; +Povidone-Iodine 10% Soln 118.25 ML Bottle ONE; -Propofol 200 MG/20 ML SDV ONE; -ceFAZolin 1 GM in Premix Bag 1 BAG IV ONE; -fentaNYL 100 MCG/2 ML SDV ONE
[2021-05-06] MEDS ORDERED: Lactated Ringers 1,000 ML IV SCH (08:00)
[2021-05-06] MEDS ORDERED: Nozin Nasal Sanitizer NASBOTH ONE (08:00)
[2021-05-06] MEDS ORDERED: ceFAZolin 2 GM in Premix Bag 1 BAG IV ONE (08:30)
[2021-05-06] MEDS ORDERED: fentaNYL 100 MCG/2 ML SDV ONE ×2 (08:48→13:32)
[2021-05-06] MEDS ORDERED: Midazolam 1 MG/ML 2 ML SDV ONE (08:48)
[2021-05-06] MEDS ORDERED: Propofol 200 MG/20 ML SDV ONE ×5 (08:48→13:35)
[2021-05-06] MEDS ORDERED: Lidocaine 1% 2 ML ONE (10:32)
[2021-05-06] MEDS ORDERED: Bupivacaine 0.5% 30 ML SDV ONE (10:45)
[2021-05-06] MEDS ORDERED: fentaNYL 250 MCG/5 ML SDV ONE (10:45)
[2021-05-06] MEDS ORDERED: Lactated Ringers 1,000 ML ONE (10:53)
[2021-05-06] MEDS ORDERED: Magnesium Hydroxide 400 MG/5 ML Susp 30 ML Cup PO PRN (14:08)
[2021-05-06] MEDS ORDERED: Acetaminophen 325 MG Tab PO PRN (14:08)
[2021-05-06] MEDS ORDERED: Ondansetron 4 MG/2 ML SDV IVPUSH PRN (14:08)
[2021-05-06] MEDS ORDERED: Nitroglycerin 0.4 MG Tab.SL SL PRN (14:15)
[2021-05-06] MEDS: Sodium Chloride 0.9% 1,000 ML IV SCH ×2 (14:38→23:33)
[2021-05-06] MEDS: Acetaminophen/oxyCODONE 325-5 MG Tab PO PRN ×3 (15:16→23:48)
[2021-05-06] MEDS: Morphine 2 MG/ML SYRINGE IVPUSH PRN ×2 (17:28→21:48)
[2021-05-06] MEDS: ceFAZolin 1 GM in Premix Bag 1 BAG IV SCH (17:35)
[2021-05-06] MEDS: Docusate Sodium 100 MG Cap PO SCH (21:39)
[2021-05-06] MEDS: Pramipexole 0.5 MG Tab PO SCH (21:41)
[2021-05-06] MEDS: Clotrimazole 1% Crm 30 GM Tube TOP SCH (21:51)
[2021-05-06] MEDS: Nozin Nasal Sanitizer NASBOTH SCH (21:59)
[2021-05-07] MEDS: ceFAZolin 1 GM in Premix Bag 1 BAG IV SCH ×2 (01:19→09:01)
[2021-05-07] MEDS: Acetaminophen/oxyCODONE 325-5 MG Tab PO PRN ×5 (03:22→20:46)
[2021-05-07] MEDS: Morphine 2 MG/ML SYRINGE IVPUSH PRN ×2 (05:45→13:29)
[2021-05-07] MEDS: Pantoprazole 40 MG Tab.CR PO SCH (07:03)
--- NOTE | 2021-05-07 08:10 | PCM.SURGPN ---
- General Info Date of Service: 05/07/21 Date of Surgery/Procedure: 05/06/21 POD#: 1 Post-Op Diagnosis: left knee revision Admission Diagnosis/Problem: Knee joint operation Functional Status: Reports: Tolerating Diet - Review of Systems General: Reports: Other (single episode of dizziness with sit to stand transfer this AM ). Denies: Fatigue, Chills, Night Sweats HEENT: Reports: No Symptoms Pulmonary: Reports: No Symptoms Cardiovascular: Reports: No Symptoms Gastrointestinal: Reports: No Symptoms Genitourinary: Reports: No Symptoms Musculoskeletal: Reports: Leg Pain (left ), Joint Pain (left knee ), Joint Swelling (left knee ) Neurological: Reports: Dizziness Psychiatric: Reports: No Symptoms - Patient Data Vitals - Most Recent: Last Vital Signs Temp 97.7 F 05/07/21 07:00 Pulse 81 05/07/21 07:00 Resp 16 05/07/21 07:00 BP 102/52 L 05/07/21 07:00 Pulse Ox 96 05/07/21 07:00 Weight - Most Recent: 209 lb I&O - Last 24 Hours: Intake & Output 05/06/21 05/07/21 05/07/21 22:59 06:59 14:59 Intake Total 1346 2289 520 Output Total 150 1500 Balance 1196 789 520 Lab Results Last 24 Hrs: Laboratory Results - last 24 hr 05/06/21 05/07/21 Range/Units 07:30 04:25 WBC 7.5 (4.5-11.0) K/uL RBC 3.22 L (3.30-5.50) M/uL Hgb 9.1 L D (12.0-15.0) g/dL Hct 28.7 L (36.0-48.0) % MCV 89 (80-98) fL MCH 28 (27-31) pg MCHC 32 (32-36) % Plt Count 247 (150-400) K/uL Blood Type B POSITIVE Gel Antibody Screen Negative Med Orders - Current: Current Medications Acetaminophen (Acetaminophen 325 Mg Tab) 650 mg PO Q4H PRN PRN Reason: Pain/Fever Hydrocodone Bitart/Acetaminophen (Acetaminophen/Hydrocodone 325-5 Mg Tab) 1 tab PO Q4H PRN PRN Reason: Pain (mild 1-3) Amlodipine Besylate (Amlodipine 5 Mg Tab) 5 mg PO DAILY PATTIE Bandage/Support Products (Nozin [employer]) 1 applic NASBOTH BID [facility] Stop: 05/12/21 21:01 Last Admin: 05/06/21 21:59 Dose: 1 applic Documented by: Clotrimazole (Clotrimazole 1% Crm 30 Gm Tube) 0 gm TOP BID [facility] Last Admin: 05/06/21 21:51 Dose: Not Given Documented by: Docusate Sodium (Docusate Sodium 100 Mg Cap) 100 mg PO BID [facility] Last Admin: 05/06/21 21:39 Dose: 100 mg Documented by: Enoxaparin Sodium (Enoxaparin 30 Mg/0.3 Ml Syringe) 30 mg SUBCUT DAILY [facility] Fluoxetine HCl (Fluoxetine 20 Mg Cap) 40 mg PO DAILY [facility] Hydrochlorothiazide (Hydrochlorothiazide 25 Mg Tab) 25 mg PO DAILY [facility] Sodium Chloride (Normal Saline) 1,000 mls @ 125 mls/hr IV ASDIRECTED [facility] Last Admin: 05/06/21 23:33 Dose: 125 mls/hr Documented by: Cefazolin Sodium/Dextrose 1 gm (/ Premix) 50 mls @ 100 mls/hr IV Q8H [facility] Stop: 05/07/21 09:29 Last Admin: 05/07/21 01:19 Dose: 100 mls/hr Documented by: Magnesium Hydroxide (Magnesium Hydroxide 400 Mg/5 Ml Susp 30 Ml Cup) 30 ml PO BID PRN PRN Reason: Constipation Morphine Sulfate (Morphine 2 Mg/Ml Syringe) 1 mg IVPUSH Q1H PRN PRN Reason: Breakthrough Pain Last Admin: 05/07/21 05:45 Dose: 1 mg Documented by: Nitroglycerin (Nitroglycerin 0.4 Mg Tab.Sl) 0.4 mg SL ASDIRECTED PRN PRN Reason: Chest Pain Nystatin (Nystatin Topical Powder 15 Gm Bottle) 0 gm TOP DAILY [facility] Ondansetron HCl (Ondansetron 4 Mg/2 Ml Sdv) 4 mg IVPUSH Q4H PRN PRN Reason: Nausea/Vomiting Oxycodone/Acetaminophen (Acetaminophen/Oxycodone 325-5 Mg Tab) 1 - 2 tab PO Q4H PRN PRN Reason: Pain Last Admin: 05/07/21 07:45 Dose: 2 tab Documented by: Pantoprazole Sodium (Pantoprazole 40 Mg Tab.Cr) 40 mg PO ACBREAKFAST [facility] Last Admin: 05/07/21 07:03 Dose: 40 mg Documented by: Pramipexole Dihydrochloride (Pramipexole 0.5 Mg Tab) 0.5 mg PO BEDTIME [facility] Last Admin: 05/06/21 21:41 Dose: 0.5 mg Documented by: Discontinued Medications Bandage/Support Products (Nozin [employer]) 1 applic NASBOTH ONETIME ONE Stop: 05/06/21 08:01 Last Admin: 05/06/21 07:51 Dose: 1 applic Documented by: Bupivacaine HCl (Bupivacaine 0.5% 30 Ml Sdv) Confirm Administered Dose 30 ml .ROUTE .STK-MED ONE Stop: 05/06/21 10:46 Fentanyl (Fentanyl 100 Mcg/2 Ml Sdv) Confirm Administered Dose 100 mcg .ROUTE .STK-MED ONE Stop: 05/06/21 08:49 Fentanyl (Fentanyl 250 Mcg/5 Ml Sdv) Confirm Administered Dose 250 mcg .ROUTE .STK-MED ONE Stop: 05/06/21 10:46 Fentanyl (Fentanyl 100 Mcg/2 Ml Sdv) Confirm Administered Dose 100 mcg .ROUTE .STK-MED ONE Stop: 05/06/21 13:33 Cefazolin Sodium/Dextrose 2 gm (/ Premix) 50 mls @ 100 mls/hr IV ONETIME ONE Stop: 05/06/21 08:59 Last Admin: 05/06/21 10:15 Dose: 100 mls/hr Documented by: Lactated Ringer's (Ringers, Lactated) 1,000 mls @ 75 mls/hr IV ASDIRECTED [facility] Last Admin: 05/06/21 08:25 Dose: 75 mls/hr Documented by: Lidocaine HCl (Xylocaine-Mpf 1%) Confirm Administered Dose 2 mls @ as directed .ROUTE .STK-MED ONE Stop: 05/06/21 10:33 Lactated Ringer's (Ringers, Lactated) Confirm Administered Dose 1,000 mls @ as directed .ROUTE .STK-MED ONE Stop: 05/06/21 10:54 Midazolam HCl (Midazolam 1 Mg/Ml 2 Ml Sdv) Confirm Administered Dose 2 mg .ROUTE .STK-MED ONE Stop: 05/06/21 08:49 Povidone Iodine (Povidone-Iodine 10% Soln 118.25 Ml Bottle) Confirm Administered Dose 1 ml .ROUTE .STK-MED ONE Stop: 05/06/21 06:52 Last Admin: 05/06/21 11:05 Dose: 30 ml Documented by: Propofol (Propofol 200 Mg/20 Ml Sdv) Confirm Administered Dose 200 mg .ROUTE .STK-MED ONE Stop: 05/06/21 08:49 Propofol (Propofol 200 Mg/20 Ml Sdv) Confirm Administered Dose 200 mg .ROUTE .STK-MED ONE Stop: 05/06/21 11:48 Propofol (Propofol 200 Mg/20 Ml Sdv) Confirm Administered Dose 200 mg .ROUTE .STK-MED ONE Stop: 05/06/21 11:48 Propofol (Propofol 200 Mg/20 Ml Sdv) Confirm Administered Dose 200 mg .ROUTE .STK-MED ONE Stop: 05/06/21 12:08 Propofol (Propofol 200 Mg/20 Ml Sdv) Confirm Administered Dose 200 mg .ROUTE .STK-MED ONE Stop: 05/06/21 13:36 - Exam Wound/Incisions: Healing Well, Dressing Dry and Intact, Drainage Quality Assessment: DVT Prophylaxis General: Alert, Oriented, Cooperative, No Acute Distress Extremities: Normal Capillary Refill, Pedal Edema, Joint Swelling (left knee ), Leg Pain (left ), Limited Range of Motion (due to postoperative pain and swelling at left knee ), Increased Warmth, Other (dorsiflexion: 3/5. Plantar flexion: 3/5. ). No: Geovani's Sign Skin: Warm, Intact, Other (incision approximated, no active drainage. no surrounding erythema to incision. mild warmth to touch of left knee ) Neurological: No New Focal Deficit Psy/Mental Status: Alert, Normal Affect, Normal Mood Sepsis Event Note - Evaluation Sepsis Screening Result: No Definite Risk - Focused Exam Vital Signs: Vital Signs Temp Pulse Resp BP BP Pulse Ox 05/07/21 07:00 97.7 F 81 16 102/52 L 96 05/07/21 03:16 99.0 F 88 16 97/44 L 93 L 05/07/21 01:19 100 F 05/06/21 23:20 100.8 F H 99 16 119/53 L 93 L 05/06/21 20:01 100.9 F H 91 16 111/56 L 94 L - Problem List & Annotations (1) Postoperative anemia due to acute blood loss SNOMED Code(s): 81341726421834753 Code(s): D62 - ACUTE POSTHEMORRHAGIC ANEMIA Status: Acute Current Visit: Yes (2) Status post left knee surgery SNOMED Code(s): 503919723 Code(s): Z98.890 - OTHER SPECIFIED POSTPROCEDURAL STATES Status: Acute Current Visit: Yes Annotation/Comment:: Removal of hardware left tibia, revision of partial knee - Problem List Review Problem List Initiated/Reviewed/Updated: Yes - My Orders Last 24 Hours: Active Orders 24 hr Category Date Time Status Patient Status [ADT] Routine ADT 05/06/21 14:08 Active Ambulate [RC] QID Care 05/06/21 14:08 Active Antiembolic Devices [RC] .Routine Care 05/06/21 14:08 Active Head of Bed Elevation [RC] ASDIRECTED Care 05/06/21 14:08 Active Intake and Output [RC] QSHIFT Care 05/06/21 14:08 Active May Shower [RC] ASDIRECTED Care 05/06/21 14:08 Active Neurovascular Check [RC] Q4H Care 05/06/21 14:08 Active Oxygen Therapy [RC] PRN Care 05/06/21 14:08 Active RT Incentive Spirometry [RC] Q1HWA Care 05/06/21 14:08 Active Up to Chair [RC] QID Care 05/06/21 14:08 Active VTE/DVT Education [RC] Click to Edit Care 05/06/21 14:08 Active Vital Signs [RC] PER UNIT ROUTINE Care 05/06/21 14:08 Active Wound Care [RC] Q12H Care 05/06/21 14:08 Active Consult to Case Management/Forestry Aide [CONS] Cons 05/06/21 14:08 Active Routine OT Evaluation and Treatment [CONS] Routine Cons 05/06/21 14:08 Active PT Evaluation and Treatment [CONS] Routine Cons 05/06/21 14:08 Active Regular Diet [DIET] Diet 05/06/21 Lunch Active Fluoro Up To 1Hr [CR] Routine Exams 05/06/21 10:54 Taken Knee 1V or 2V Lt [CR] Routine Exams 05/06/21 14:07 Taken Acetaminophen [TylenoL] Med 05/06/21 14:08 Active 650 mg PO Q4H PRN Acetaminophen/HYDROcodone [[place] 325-5 MG] Med 05/06/21 14:08 Active 1 tab PO Q4H PRN Acetaminophen/oxyCODONE [Percocet 325-5 MG] Med 05/06/21 14:08 Active 1 - 2 tab PO Q4H PRN Clotrimazole [Lotrimin AF 1% Crm] Med 05/06/21 21:00 Active 0 gm TOP BID Docusate Sodium [Colace] Med 05/06/21 21:00 Active 100 mg PO BID Enoxaparin [Lovenox] Med 05/07/21 09:00 Active 30 mg SUBCUT DAILY FLUoxetine [PROzac] Med 05/07/21 09:00 Active 40 mg PO DAILY Magnesium Hydroxide [Milk of Magnesia] Med 05/06/21 14:08 Active 30 ml PO BID PRN Morphine Med 05/06/21 14:08 Active 1 mg IVPUSH Q1H PRN Nitroglycerin [Nitrostat] Med 05/06/21 14:15 Active 0.4 mg SL ASDIRECTED PRN Nozin [ [employer]] Med 05/06/21 21:00 Active 1 applic NASBOTH BID Nystatin [Nystop] Med 05/07/21 09:00 Active 0 gm TOP DAILY Ondansetron [Zofran] Med 05/06/21 14:08 Active 4 mg IVPUSH Q4H PRN Pantoprazole [ProTONIX] Med 05/07/21 07:30 Active 40 mg PO ACBREAKFAST Pramipexole [Mirapex] Med 05/06/21 21:00 Active 0.5 mg PO BEDTIME Sodium Chloride 0.9% [Normal Saline] 1,000 ml Med 05/06/21 14:15 Active IV ASDIRECTED amLODIPine [Norvasc] Med 05/07/21 09:00 Active 5 mg PO DAILY ceFAZolin [Ancef 1 GM/50 ML] 1 gm Med 05/06/21 17:00 Active Premix Bag 1 bag IV Q8H hydroCHLOROthiazide Med 05/07/21 09:00 Active 25 mg PO DAILY Antiembolic Hose [OM.PC] Routine Oth 05/06/21 14:08 Ordered DVT/VTE Prophylaxis Reflex [OM.PC] Routine Oth 05/06/21 14:08 Ordered Ice Therapy [OM.PC] Per Unit Routine Oth 05/06/21 14:08 Ordered Medication Continuation Instructions [OM.PC] Per Unit Oth 05/06/21 14:08 Ordered Routine Oral Care [OM.PC] Routine Oth 05/06/21 14:08 Ordered Sequential Compression Device [OM.PC] Routine Oth 05/06/21 14:08 Ordered Resuscitation Status Routine Resus Stat 05/06/21 14:08 Ordered Medication Orders Acetaminophen (Acetaminophen 325 Mg Tab) 650 mg PO Q4H PRN PRN Reason: Pain/Fever Hydrocodone Bitart/Acetaminophen (Acetaminophen/Hydrocodone 325-5 Mg Tab) 1 tab PO Q4H PRN PRN Reason: Pain (mild 1-3) Amlodipine Besylate (Amlodipine 5 Mg Tab) 5 mg PO DAILY [facility] Bandage/Support Products (Nozin [employer]) 1 applic NASBOTH BID [facility] Stop: 05/12/21 21:01 Last Admin: 05/06/21 21:59 Dose: 1 applic Documented by: MIKAYLA Clotrimazole (Clotrimazole 1% Crm 30 Gm Tube) 0 gm TOP BID [facility] Last Admin: 05/06/21 21:51 Dose: Not Given Documented by: MIKAYLA Docusate Sodium (Docusate Sodium 100 Mg Cap) 100 mg PO BID [facility] Last Admin: 05/06/21 21:39 Dose: 100 mg Documented by: MIKAYLA Enoxaparin Sodium (Enoxaparin 30 Mg/0.3 Ml Syringe) 30 mg SUBCUT DAILY [facility] Fluoxetine HCl (Fluoxetine 20 Mg Cap) 40 mg PO DAILY [facility] Hydrochlorothiazide (Hydrochlorothiazide 25 Mg Tab) 25 mg PO DAILY [facility] Sodium Chloride (Normal Saline) 1,000 mls @ 125 mls/hr IV ASDIRECTED [facility] Last Admin: 05/06/21 23:33 Dose: 125 mls/hr Documented by: Infusion: 05/06/21 22:38 Dose: 125 mls/hr Documented by: Admin: 05/06/21 14:38 Dose: 125 mls/hr Documented by: MAIKOL Cefazolin Sodium/Dextrose 1 gm (/ Premix) 50 mls @ 100 mls/hr IV Q8H [facility] Stop: 05/07/21 09:29 Last Admin: 05/07/21 01:19 Dose: 100 mls/hr Documented by: Infusion: 05/06/21 18:05 Dose: 100 mls/hr Documented by: Admin: 05/06/21 17:35 Dose: 100 mls/hr Documented by: NESTOR Magnesium Hydroxide (Magnesium Hydroxide 400 Mg/5 Ml Susp 30 Ml Cup) 30 ml PO BID PRN PRN Reason: Constipation Morphine Sulfate (Morphine 2 Mg/Ml Syringe) 1 mg IVPUSH Q1H PRN PRN Reason: Breakthrough Pain Last Admin: 05/07/21 05:45 Dose: 1 mg Documented by: Admin: 05/06/21 21:48 Dose: 1 mg Documented by: Admin: 05/06/21 17:28 Dose: 1 mg Documented by: NESTOR Nitroglycerin (Nitroglycerin 0.4 Mg Tab.Sl) 0.4 mg SL ASDIRECTED PRN PRN Reason: Chest Pain Nystatin (Nystatin Topical Powder 15 Gm Bottle) 0 gm TOP DAILY [facility] Ondansetron HCl (Ondansetron 4 Mg/2 Ml Sdv) 4 mg IVPUSH Q4H PRN PRN Reason: Nausea/Vomiting Oxycodone/Acetaminophen (Acetaminophen/Oxycodone 325-5 Mg Tab) 1 - 2 tab PO Q4H PRN PRN Reason: Pain Last Admin: 05/07/21 07:45 Dose: 2 tab Documented by: Admin: 05/07/21 03:22 Dose: 1 tab Documented by: Admin: 05/06/21 23:48 Dose: 2 tab Documented by: Admin: 05/06/21 19:24 Dose: 2 tab Documented by: Admin: 05/06/21 15:16 Dose: 2 tab Documented by: [id number] Pantoprazole Sodium (Pantoprazole 40 Mg Tab.Cr) 40 mg PO ACBREAKFAST [facility] Last Admin: 05/07/21 07:03 Dose: 40 mg Documented by: NESTOR Pramipexole Dihydrochloride (Pramipexole 0.5 Mg Tab) 0.5 mg PO BEDTIME [facility] Last Admin: 05/06/21 21:41 Dose: 0.5 mg Documented by: MIKAYLA - Assessment Assessment (Free Text/Narrative):: Patient is a pleasant 70-year-old female, status post left total knee revision, postop day #1. Patient remains hemodynamically stable, no acute events overnight. Postop day #1 hemoglobin declined to 9.1. Patient has been hypotensive, fairly asymptomatic with this. Endorsed short episode of dizziness with sit to stand transfer this morning, denied any other dizziness, lightheadedness, vision changes, nor fatigue. Temperature at 100.9F last night, declined this morning to 97.7F. Patient endorsed pain overnight in left knee after block wore off; getting adequate pain control with Percocet and Morphine. Was able to transfer from bed to chair with walker and x2 assist. Has not ambulated any further at this time. Denied numbness or tingling to the left lower extremity. Patient tolerating regular diet well. Denied nausea/emesis. Did have active drainage from left knee incision post-operatively. Dressing was reinforced twice overnight with ABD pads and new Bob wrap. Dressing was removed and inspected this morning. Steri-Strips came off as dressing removed. Left knee was cleaned with water and wash cloth, new Steri-Strips applied over incisions. A new ABD applied and Bob wrap reinforced on left lower extremity. Incision remained approximated with no surrounding erythema, scant active drainage from medial tibial incision. Modest edema of left knee and pedal edema to left lower extremity. Tibialis posterior appreciated, 2+. Patient requires inpatient status at this time to monitor drainage from left knee incision site, monitoring of postoperative anemia/vitals, and additional physical therapy services to progress ambulation abilities prior to discharge home. Plan: * Dressing change performed this morning this morning by orthopedic provider. * Patient to participate in physical therapy and occupational therapy daily while in the hospital. * Navas made to be discontinued this afternoon pending progress of ambulation with morning physical therapy. * Continue with current pain regimen. * Hypotension: will hold Amlodipine and Hydrochlorothiazide this morning. Continue to monitor vitals every 4 hours. * Postoperative anemia stable at this time; if patient does become symptomatic, can recheck CBC. * Continue with 30 mg Lovenox subcutaneous daily for chemical DVT/VTE prophylaxis. Bilateral SCDs for mechanical prophylaxis. * When patient is medically stable, ambulation abilities have progressed, and pain is controlled with PO medications, will anticipate discharge to home with home health referral
[2021-05-07] MEDS: Hydrochlorothiazide 25 MG Tab PO SCH (08:13)
[2021-05-07] MEDS: amLODIPine 5 MG Tab PO SCH (08:14)
[2021-05-07] MEDS: Nozin Nasal Sanitizer NASBOTH SCH ×2 (08:59→20:45)
[2021-05-07] MEDS: FLUoxetine 20 MG Cap PO SCH (09:00)
[2021-05-07] MEDS: Enoxaparin 30 MG/0.3 ML Syringe SUBCUT SCH (09:00)
[2021-05-07] MEDS: Clotrimazole 1% Crm 30 GM Tube TOP SCH ×2 (09:01→20:45)
[2021-05-07] MEDS: Docusate Sodium 100 MG Cap PO SCH ×2 (09:03→20:45)
[2021-05-07] MEDS: Nystatin Topical Powder 15 GM Bottle TOP SCH (09:19)
--- NOTE | 2021-05-07 09:20 | CR ---
Knee 1V or 2V Lt CLINICAL HISTORY: Status post total knee arthroplasty FINDINGS: Patient is status post recent total knee arthroplasty/revision there are long intramedullary components in the femur and tibia. Components appear well seated. There is intra-articular and subcutaneous air. Impression: Status post recent total knee arthroplasty
[2021-05-07] MEDS: Pramipexole 0.5 MG Tab PO SCH ×2 (19:34→20:45)
[2021-05-08] MEDS: Acetaminophen/oxyCODONE 325-5 MG Tab PO PRN ×6 (00:27→21:55)
[2021-05-08] MEDS: Pantoprazole 40 MG Tab.CR PO SCH (07:15)
[2021-05-08] MEDS: Nozin Nasal Sanitizer NASBOTH SCH ×2 (08:32→20:33)
[2021-05-08] MEDS: Hydrochlorothiazide 25 MG Tab PO SCH ×2 (08:34→14:13)
[2021-05-08] MEDS: Docusate Sodium 100 MG Cap PO SCH ×2 (08:34→20:35)
[2021-05-08] MEDS: Clotrimazole 1% Crm 30 GM Tube TOP SCH ×2 (08:35→20:35)
[2021-05-08] MEDS: Nystatin Topical Powder 15 GM Bottle TOP SCH (08:37)
[2021-05-08] MEDS: FLUoxetine 20 MG Cap PO SCH (08:37)
[2021-05-08] MEDS: Enoxaparin 30 MG/0.3 ML Syringe SUBCUT SCH (08:43)
[2021-05-08] MEDS: amLODIPine 5 MG Tab PO SCH (14:13)
--- NOTE | 2021-05-08 14:47 | PCM.SURGPN ---
- General Info Date of Service: 05/08/21 Date of Surgery/Procedure: 05/06/21 POD#: 2 Post-Op Diagnosis: left total knee, revision Admission Diagnosis/Problem: Knee joint operation Functional Status: Reports: Pain Controlled, Tolerating Diet, Ambulating, Urinating - Review of Systems General: Reports: Weakness. Denies: Fever, Chills, Night Sweats HEENT: Reports: No Symptoms Pulmonary: Reports: No Symptoms Cardiovascular: Reports: No Symptoms Gastrointestinal: Reports: No Symptoms Genitourinary: Reports: No Symptoms Musculoskeletal: Reports: Leg Pain (left ), Joint Pain (left knee ), Joint Swelling (left knee ) Skin: Reports: Bruising Neurological: Reports: No Symptoms Psychiatric: Reports: No Symptoms - Patient Data Vitals - Most Recent: Last Vital Signs Temp 98.1 F 05/08/21 14:20 Pulse 87 05/08/21 14:20 Resp 16 05/08/21 14:20 BP 100/56 L 05/08/21 14:20 Pulse Ox 97 05/08/21 14:20 Weight - Most Recent: 209 lb 0.007 oz I&O - Last 24 Hours: Intake & Output 05/07/21 05/08/21 05/08/21 22:59 06:59 14:59 Intake Total 600 1940 Output Total 100 Balance 500 1940 Med Orders - Current: Current Medications Acetaminophen (Acetaminophen 325 Mg Tab) 650 mg PO Q4H PRN PRN Reason: Pain/Fever Hydrocodone Bitart/Acetaminophen (Acetaminophen/Hydrocodone 325-5 Mg Tab) 1 tab PO Q4H PRN PRN Reason: Pain (mild 1-3) Amlodipine Besylate (Amlodipine 5 Mg Tab) 5 mg PO DAILY [facility] Last Admin: 05/08/21 14:13 Dose: 5 mg Documented by: Bandage/Support Products (Nozin Nasal Business Support Specialist) 1 applic NASBOTH BID [facility] Stop: 05/12/21 21:01 Last Admin: 05/08/21 08:32 Dose: 1 applic Documented by: Clotrimazole (Clotrimazole 1% Crm 30 Gm Tube) 0 gm TOP BID [facility] Last Admin: 05/08/21 08:35 Dose: Not Given Documented by: Docusate Sodium (Docusate Sodium 100 Mg Cap) 100 mg PO BID [facility] Last Admin: 05/08/21 08:34 Dose: 100 mg Documented by: Enoxaparin Sodium (Enoxaparin 30 Mg/0.3 Ml Syringe) 30 mg SUBCUT DAILY [facility] Last Admin: 05/08/21 08:43 Dose: 30 mg Documented by: Fluoxetine HCl (Fluoxetine 20 Mg Cap) 40 mg PO DAILY [facility] Last Admin: 05/08/21 08:37 Dose: 40 mg Documented by: Hydrochlorothiazide (Hydrochlorothiazide 25 Mg Tab) 25 mg PO DAILY [facility] Last Admin: 05/08/21 14:13 Dose: 25 mg Documented by: Magnesium Hydroxide (Magnesium Hydroxide 400 Mg/5 Ml Susp 30 Ml Cup) 30 ml PO BID PRN PRN Reason: Constipation Morphine Sulfate (Morphine 2 Mg/Ml Syringe) 1 mg IVPUSH Q1H PRN PRN Reason: Breakthrough Pain Last Admin: 05/07/21 13:29 Dose: 1 mg Documented by: Nitroglycerin (Nitroglycerin 0.4 Mg Tab.Sl) 0.4 mg SL ASDIRECTED PRN PRN Reason: Chest Pain Nystatin (Nystatin Topical Powder 15 Gm Bottle) 0 gm TOP DAILY [facility] Last Admin: 05/08/21 08:37 Dose: Not Given Documented by: Ondansetron HCl (Ondansetron 4 Mg/2 Ml Sdv) 4 mg IVPUSH Q4H PRN PRN Reason: Nausea/Vomiting Oxycodone/Acetaminophen (Acetaminophen/Oxycodone 325-5 Mg Tab) 1 - 2 tab PO Q4H PRN PRN Reason: Pain Last Admin: 05/08/21 12:57 Dose: 2 tab Documented by: Pantoprazole Sodium (Pantoprazole 40 Mg Tab.Cr) 40 mg PO ACBREAKFAST [facility] Last Admin: 05/08/21 07:15 Dose: 40 mg Documented by: Pramipexole Dihydrochloride (Pramipexole 0.5 Mg Tab) 0.5 mg PO BEDTIME [facility] Last Admin: 05/07/21 20:45 Dose: Not Given Documented by: Discontinued Medications Bandage/Support Products (Nozin Nasal Business Support Specialist) 1 applic NASBOTH ONETIME ONE Stop: 05/06/21 08:01 Last Admin: 05/06/21 07:51 Dose: 1 applic Documented by: Bupivacaine HCl (Bupivacaine 0.5% 30 Ml Sdv) Confirm Administered Dose 30 ml .ROUTE .STK-MED ONE Stop: 05/06/21 10:46 Fentanyl (Fentanyl 100 Mcg/2 Ml Sdv) Confirm Administered Dose 100 mcg .[address]TE .[facility] ONE Stop: 05/06/21 08:49 Fentanyl (Fentanyl 250 Mcg/5 Ml Sdv) Confirm Administered Dose 250 mcg .[address] .[facility]-MED ONE Stop: 05/06/21 10:46 Fentanyl (Fentanyl 100 Mcg/2 Ml Sdv) Confirm Administered Dose [address] mcg [address] .[facility] ONE Stop: 05/06/21 13:33 Cefazolin Sodium/Dextrose 2 gm (/ Premix) 50 mls @ 100 mls/hr IV ONETIME ONE Stop: 05/06/21 08:59 Last Admin: 05/06/21 10:15 Dose: 100 mls/hr Documented by: Lactated Ringer's (Ringers, Lactated) 1,000 mls @ 75 mls/hr IV ASDIRECTED [facility] Last Admin: 05/06/21 08:25 Dose: 75 mls/hr Documented by: Lidocaine HCl (Xylocaine-Mpf 1%) Confirm Administered Dose 2 mls @ as directed .ROUTE .[facility]-MED ONE Stop: 05/06/21 10:33 Lactated Ringer's (Ringers, Lactated) Confirm Administered Dose 1,000 mls @ as directed .ROUTE .[facility] ONE Stop: 05/06/21 10:54 Sodium Chloride (Normal Saline) 1,000 mls @ 125 mls/hr IV ASDIRECTED [facility] Last Admin: 05/06/21 23:33 Dose: 125 mls/hr Documented by: Cefazolin Sodium/Dextrose 1 gm (/ Premix) 50 mls @ 100 mls/hr IV Q8H [facility] Stop: 05/07/21 09:29 Last Admin: 05/07/21 09:01 Dose: 100 mls/hr Documented by: Midazolam HCl (Midazolam 1 Mg/Ml 2 Ml Sdv) Confirm Administered Dose [address] [facility]-MED ONE Stop: 05/06/21 08:49 Povidone Iodine (Povidone-Iodine 10% Soln 118.25 Ml Bottle) Confirm Administered Dose 1 ml .ROUTE .[facility] ONE Stop: 05/06/21 06:52 Last Admin: 05/06/21 11:05 Dose: 30 ml Documented by: Propofol (Propofol 200 Mg/20 Ml Sdv) Confirm Administered Dose 200 mg .ROUTE .STK-MED ONE Stop: 05/06/21 08:49 Propofol (Propofol 200 Mg/20 Ml Sdv) Confirm Administered Dose 200 mg .ROUTE .STK-MED ONE Stop: 05/06/21 11:48 Propofol (Propofol 200 Mg/20 Ml Sdv) Confirm Administered Dose 200 mg .ROUTE .STK-MED ONE Stop: 05/06/21 11:48 Propofol (Propofol 200 Mg/20 Ml Sdv) Confirm Administered Dose 200 mg .ROUTE .STK-MED ONE Stop: 05/06/21 12:08 Propofol (Propofol 200 Mg/20 Ml Sdv) Confirm Administered Dose 200 mg .ROUTE .STK-MED ONE Stop: 05/06/21 13:36 - Exam Wound/Incisions: Healing Well, Dressing Dry and Intact, No Drainage Quality Assessment: DVT Prophylaxis (bilateral LE SCDs ) General: Alert, Oriented, Cooperative, No Acute Distress Extremities: Normal Capillary Refill, Pedal Edema, Joint Swelling (left knee ), Leg Pain (left ), Limited Range of Motion (due to postoperative swelling and pain ). No: Geovani's Sign Skin: Dry, Intact, Ecchymosis Neurological: No New Focal Deficit Psy/Mental Status: Alert, Normal Affect, Normal Mood Sepsis Event Note - Evaluation Sepsis Screening Result: No Definite Risk - Focused Exam Vital Signs: Vital Signs Temp Temp Pulse Resp BP BP Pulse Ox 05/08/21 14:20 98.1 F 87 16 100/56 L 97 05/08/21 14:13 100/56 L 05/08/21 10:53 97.8 F 89 16 118/57 L 99 05/08/21 08:49 108/40 L 05/08/21 07:45 98.2 F 86 16 125/56 L 97 05/08/21 03:56 98.1 F 95 18 134/59 L 98 - Problem List & Annotations (1) Status post left knee surgery SNOMED Code(s): 779258000 Code(s): Z98.890 - OTHER SPECIFIED POSTPROCEDURAL STATES Status: Acute Current Visit: Yes Annotation/Comment:: Removal of hardware left tibia, revision of partial knee (2) Postoperative anemia due to acute blood loss SNOMED Code(s): 71801609566356410 Code(s): D62 - ACUTE POSTHEMORRHAGIC ANEMIA Status: Acute Current Visit: Yes - Problem List Review Problem List Initiated/Reviewed/Updated: Yes - My Orders Last 24 Hours: Medication Orders Acetaminophen (Acetaminophen 325 Mg Tab) 650 mg PO Q4H PRN PRN Reason: Pain/Fever Hydrocodone Bitart/Acetaminophen (Acetaminophen/Hydrocodone 325-5 Mg Tab) 1 tab PO Q4H PRN PRN Reason: Pain (mild 1-3) Amlodipine Besylate (Amlodipine 5 Mg Tab) 5 mg PO DAILY [facility] Last Admin: 05/08/21 14:13 Dose: 5 mg Documented by: Admin: 05/07/21 08:14 Dose: Not Given Documented by: NESTOR Bandage/Support Products (Nozin Nasal Business Support Specialist) 1 applic NASBOTH BID [facility] Stop: 05/12/21 21:01 Last Admin: 05/08/21 08:32 Dose: 1 applic Documented by: Admin: 05/07/21 20:45 Dose: 1 applic Documented by: Admin: 05/07/21 08:59 Dose: 1 applic Documented by: Admin: 05/06/21 21:59 Dose: 1 applic Documented by: MIKAYLA Clotrimazole (Clotrimazole 1% Crm 30 Gm Tube) 0 gm TOP BID [facility] Last Admin: 05/08/21 08:35 Dose: Not Given Documented by: Admin: 05/07/21 20:45 Dose: Not Given Documented by: Admin: 05/07/21 09:01 Dose: Not Given Documented by: Admin: 05/06/21 21:51 Dose: Not Given Documented by: MIKAYLA Docusate Sodium (Docusate Sodium 100 Mg Cap) 100 mg PO BID [facility] Last Admin: 05/08/21 08:34 Dose: 100 mg Documented by: Admin: 05/07/21 20:45 Dose: 100 mg Documented by: Admin: 05/07/21 09:03 Dose: 100 mg Documented by: Admin: 05/06/21 21:39 Dose: 100 mg Documented by: MIKAYLA Enoxaparin Sodium (Enoxaparin 30 Mg/0.3 Ml Syringe) 30 mg SUBCUT DAILY [facility] Last Admin: 05/08/21 08:43 Dose: 30 mg Documented by: Admin: 05/07/21 09:00 Dose: 30 mg Documented by: NESTOR Fluoxetine HCl (Fluoxetine 20 Mg Cap) 40 mg PO DAILY [facility] Last Admin: 05/08/21 08:37 Dose: 40 mg Documented by: Admin: 05/07/21 09:00 Dose: 40 mg Documented by: NESTOR Hydrochlorothiazide (Hydrochlorothiazide 25 Mg Tab) 25 mg PO DAILY [facility] Last Admin: 05/08/21 14:13 Dose: 25 mg Documented by: Admin: 05/07/21 08:13 Dose: Not Given Documented by: NESTOR Magnesium Hydroxide (Magnesium Hydroxide 400 Mg/5 Ml Susp 30 Ml Cup) 30 ml PO BID PRN PRN Reason: Constipation Morphine Sulfate (Morphine 2 Mg/Ml Syringe) 1 mg IVPUSH Q1H PRN PRN Reason: Breakthrough Pain Last Admin: 05/07/21 13:29 Dose: 1 mg Documented by: Admin: 05/07/21 05:45 Dose: 1 mg Documented by: Admin: 05/06/21 21:48 Dose: 1 mg Documented by: Admin: 05/06/21 17:28 Dose: 1 mg Documented by: NESTOR Nitroglycerin (Nitroglycerin 0.4 Mg Tab.Sl) 0.4 mg SL ASDIRECTED PRN PRN Reason: Chest Pain Nystatin (Nystatin Topical Powder 15 Gm Bottle) 0 gm TOP DAILY [facility] Last Admin: 05/08/21 08:37 Dose: Not Given Documented by: Admin: 05/07/21 09:19 Dose: Not Given Documented by: NESTOR Ondansetron HCl (Ondansetron 4 Mg/2 Ml Sdv) 4 mg IVPUSH Q4H PRN PRN Reason: Nausea/Vomiting Oxycodone/Acetaminophen (Acetaminophen/Oxycodone 325-5 Mg Tab) 1 - 2 tab PO Q4H PRN PRN Reason: Pain Last Admin: 05/08/21 12:57 Dose: 2 tab Documented by: Admin: 05/08/21 08:37 Dose: 2 tab Documented by: Admin: 05/08/21 04:28 Dose: 2 tab Documented by: Admin: 05/08/21 00:27 Dose: 2 tab Documented by: Admin: 05/07/21 20:46 Dose: 2 tab Documented by: Admin: 05/07/21 16:35 Dose: 2 tab Documented by: Admin: 05/07/21 11:46 Dose: 2 tab Documented by: Admin: 05/07/21 07:45 Dose: 2 tab Documented by: Admin: 05/07/21 03:22 Dose: 1 tab Documented by: Admin: 05/06/21 23:48 Dose: 2 tab Documented by: Admin: 05/06/21 19:24 Dose: 2 tab Documented by: Admin: 05/06/21 15:16 Dose: 2 tab Documented by: [id number] Pantoprazole Sodium (Pantoprazole 40 Mg Tab.Cr) 40 mg PO ACBREAKFAST [facility] Last Admin: 05/08/21 07:15 Dose: 40 mg Documented by: Admin: 05/07/21 07:03 Dose: 40 mg Documented by: [email or web address] Pramipexole Dihydrochloride (Pramipexole 0.5 Mg Tab) 0.5 mg PO BEDTIME [facility] Last Admin: 05/07/21 20:45 Dose: Not Given Documented by: Admin: 05/07/21 19:34 Dose: 0.5 mg Documented by: Admin: 05/06/21 21:41 Dose: 0.5 mg Documented by: DURGAROB - Assessment Assessment (Free Text/Narrative):: Patient is a 70-year-old female, status post left total knee revision, postop day #2. No acute events overnight. Patient remains hemodynamically stable. Blood pressure medications were held yesterday due to hypotension, blood pressure within normal limits today and antihypertensive medications resumed. POD#1 dressing was changed, IV saline locked, and abbott catheter removed. Pain has been well controlled with oral medications, taking 5mg-325 mg Percocet every 4 hrs. Tolerating regular diet well. Denied nausea or emesis. Denied numbness or tingling in the left lower extremity. Patient has been participating in physical and occupational therapy daily. Ambulated 160+ feet today with four-wheel walker and standby assist, knee flexion to 84 degrees, and completed 4 steps successfully. Notes pain at a 4/10 upon return to bed after physical therapy. Worked with occupational therapy on using adaptive equipment, leg mechanical engineering advisor for left lower extremity to aid in transitions into bed/lifting left leg. Patient demonstrated competency completing ADLs with minimal assistance. Patient does endorse fatigue and malaise; requires inpatient status at this time for postoperative monitoring of postoperative anemia. Denied dizziness, lightheadedness, vision changes, dyspnea, nor chest pain. Exam: Left lower extremity neurovascular intact. NICO wrap on left lower extremity dry. Swelling present at left knee + pedal edema present. Flexion to 84 degrees. Plan: * Continue with physical and occupational therapy daily while in the hospital. * Dressing change to be performed tomorrow by orthopedic provider; pending incision inspection patient may shower tomorrow morning. * Continue with 30 mg Lovenox subcutaneous daily for DVT/VTE prophylaxis. Bilateral SCDs on lower extremities for mechanical prophylaxis. * Continue with current pain regimen. * Postoperative anemia stable at this time; will continue to monitor vitals q4 hrs. If patient has increased fatigue, dizziness, lightheadedness, or vision changes, will re-check CBC. * Anticipate discharge to home tomorrow pending patient remains medically stable and pain controlled with PO medications. Referral has been made for home health services.
[2021-05-08] MEDS: Pramipexole 0.5 MG Tab PO SCH (20:35)
[2021-05-09] MEDS: Acetaminophen/oxyCODONE 325-5 MG Tab PO PRN ×2 (02:15→05:54)
[2021-05-09] MEDS: Pantoprazole 40 MG Tab.CR PO SCH (07:41)
[2021-05-09] MEDS: Clotrimazole 1% Crm 30 GM Tube TOP SCH ×2 (09:05→20:49)
[2021-05-09] MEDS: Docusate Sodium 100 MG Cap PO SCH ×2 (09:06→20:50)
[2021-05-09] MEDS: Nozin Nasal Sanitizer NASBOTH SCH ×2 (09:06→20:50)
[2021-05-09] MEDS: Nystatin Topical Powder 15 GM Bottle TOP SCH (09:06)
[2021-05-09] MEDS: FLUoxetine 20 MG Cap PO SCH (09:06)
[2021-05-09] MEDS: Enoxaparin 30 MG/0.3 ML Syringe SUBCUT SCH (09:06)
[2021-05-09] MEDS: Hydrochlorothiazide 25 MG Tab PO SCH (10:03)
[2021-05-09] MEDS: amLODIPine 5 MG Tab PO SCH (10:03)
[2021-05-09] MEDS: Acetaminophen/HYDROcodone 325-5 MG Tab PO PRN ×3 (10:45→19:53)
--- NOTE | 2021-05-09 12:38 | PCM.SURGPN ---
- General Info Date of Service: 05/09/21 Date of Surgery/Procedure: 05/06/21 POD#: 3 Post-Op Diagnosis: left knee revision Admission Diagnosis/Problem: Knee joint operation Functional Status: Reports: Pain Controlled, Tolerating Diet, Urinating, Incentive Spirometry - Review of Systems General: Reports: Weakness, Fatigue, Malaise. Denies: Fever, Chills HEENT: Reports: No Symptoms Pulmonary: Denies: Shortness of Breath Cardiovascular: Reports: Lightheadedness (dizziness with transitions ). Denies: Chest Pain, Palpitations Gastrointestinal: Reports: No Symptoms Genitourinary: Reports: No Symptoms Musculoskeletal: Reports: Leg Pain (left ), Joint Pain (left knee ), Joint Swelling (left knee ) Skin: Reports: Bruising Neurological: Reports: Dizziness Psychiatric: Reports: No Symptoms - Patient Data Vitals - Most Recent: Last Vital Signs Temp 98.2 F 05/09/21 10:38 Pulse 85 05/09/21 10:38 Resp 16 05/09/21 10:38 BP 105/52 L 05/09/21 10:38 Pulse Ox 96 05/09/21 10:38 Weight - Most Recent: 209 lb 0.007 oz I&O - Last 24 Hours: Intake & Output 05/08/21 05/09/21 05/09/21 22:59 06:59 14:59 Intake Total 940 1200 Balance 940 1200 Med Orders - Current: Current Medications Acetaminophen (Acetaminophen 325 Mg Tab) 650 mg PO Q4H PRN PRN Reason: Pain/Fever Hydrocodone Bitart/Acetaminophen (Acetaminophen/Hydrocodone 325-5 Mg Tab) 1 tab PO Q4H PRN PRN Reason: Pain (mild 1-3) Last Admin: 05/09/21 10:45 Dose: 1 tab Documented by: Amlodipine Besylate (Amlodipine 5 Mg Tab) 5 mg PO DAILY [facility] Last Admin: 05/09/21 10:03 Dose: Not Given Documented by: Bandage/Support Products (Nozin Nasal Taker Away) 1 applic NASBOTH BID [facility] Stop: 05/12/21 21:01 Last Admin: 05/09/21 09:06 Dose: 1 applic Documented by: Clotrimazole (Clotrimazole 1% Crm 30 Gm Tube) 0 gm TOP BID [facility] Last Admin: 05/09/21 09:05 Dose: Not Given Documented by: Docusate Sodium (Docusate Sodium 100 Mg Cap) 100 mg PO BID [facility] Last Admin: 05/09/21 09:06 Dose: 100 mg Documented by: Enoxaparin Sodium (Enoxaparin 30 Mg/0.3 Ml Syringe) 30 mg SUBCUT DAILY [facility] Last Admin: 05/09/21 09:06 Dose: 30 mg Documented by: Fluoxetine HCl (Fluoxetine 20 Mg Cap) 40 mg PO DAILY [facility] Last Admin: 05/09/21 09:06 Dose: 40 mg Documented by: Hydrochlorothiazide (Hydrochlorothiazide 25 Mg Tab) 25 mg PO DAILY [facility] Last Admin: 05/09/21 10:03 Dose: Not Given Documented by: Magnesium Hydroxide (Magnesium Hydroxide 400 Mg/5 Ml Susp 30 Ml Cup) 30 ml PO BID PRN PRN Reason: Constipation Morphine Sulfate (Morphine 2 Mg/Ml Syringe) 1 mg IVPUSH Q1H PRN PRN Reason: Breakthrough Pain Last Admin: 05/07/21 13:29 Dose: 1 mg Documented by: Nitroglycerin (Nitroglycerin 0.4 Mg Tab.Sl) 0.4 mg SL ASDIRECTED PRN PRN Reason: Chest Pain Nystatin (Nystatin Topical Powder 15 Gm Bottle) 0 gm TOP DAILY [facility] Last Admin: 05/09/21 09:06 Dose: Not Given Documented by: Ondansetron HCl (Ondansetron 4 Mg/2 Ml Sdv) 4 mg IVPUSH Q4H PRN PRN Reason: Nausea/Vomiting Oxycodone/Acetaminophen (Acetaminophen/Oxycodone 325-5 Mg Tab) 1 - 2 tab PO Q4H PRN PRN Reason: Pain Last Admin: 05/09/21 05:54 Dose: 2 tab Documented by: Pantoprazole Sodium (Pantoprazole 40 Mg Tab.Cr) 40 mg PO ACBREAKFAST [facility] Last Admin: 05/09/21 07:41 Dose: 40 mg Documented by: Pramipexole Dihydrochloride (Pramipexole 0.5 Mg Tab) 0.5 mg PO BEDTIME [facility] Last Admin: 05/08/21 20:35 Dose: 0.5 mg Documented by: Discontinued Medications Bandage/Support Products (Nozin Nasal Taker Away) 1 applic NASBOTH ONETIME ONE Stop: 05/06/21 08:01 Last Admin: 05/06/21 07:51 Dose: 1 applic Documented by: Bupivacaine HCl (Bupivacaine 0.5% 30 Ml Sdv) Confirm Administered Dose 30 ml .ROUTE .STK-MED ONE Stop: 05/06/21 10:46 Fentanyl (Fentanyl 100 Mcg/2 Ml Sdv) Confirm Administered Dose 100 mcg .ROUTE .STK-MED ONE Stop: 05/06/21 08:49 Fentanyl (Fentanyl 250 Mcg/5 Ml Sdv) Confirm Administered Dose 250 mcg .ROUTE .STK-MED ONE Stop: 05/06/21 10:46 Fentanyl (Fentanyl 100 Mcg/2 Ml Sdv) Confirm Administered Dose 100 mcg .ROUTE .STK-MED ONE Stop: 05/06/21 13:33 Cefazolin Sodium/Dextrose 2 gm (/ Premix) 50 mls @ 100 mls/hr IV ONETIME ONE Stop: 05/06/21 08:59 Last Admin: 05/06/21 10:15 Dose: 100 mls/hr Documented by: Lactated Ringer's (Ringers, Lactated) 1,000 mls @ 75 mls/hr IV ASDIRECTED [facility] Last Admin: 05/06/21 08:25 Dose: 75 mls/hr Documented by: Lidocaine HCl (Xylocaine-Mpf 1%) Confirm Administered Dose 2 mls @ as directed . ROUTE .STK-MED ONE Stop: 05/06/21 10:33 Lactated Ringer's (Ringers, Lactated) Confirm Administered Dose 1,000 mls @ as directed .ROUTE .STK-MED ONE Stop: 05/06/21 10:54 Sodium Chloride (Normal Saline) 1,000 mls @ 125 mls/hr IV ASDIRECTED [facility] Last Admin: 05/06/21 23:33 Dose: 125 mls/hr Documented by: Cefazolin Sodium/Dextrose 1 gm (/ Premix) 50 mls @ 100 mls/hr IV Q8H [facility] Stop: 05/07/21 09:29 Last Admin: 05/07/21 09:01 Dose: 100 mls/hr Documented by: Midazolam HCl (Midazolam 1 Mg/Ml 2 Ml Sdv) Confirm Administered Dose 2 mg .ROUTE .STK-MED ONE Stop: 05/06/21 08:49 Povidone Iodine (Povidone-Iodine 10% Soln 118.25 Ml Bottle) Confirm Administered Dose 1 ml .ROUTE .STK-MED ONE Stop: 05/06/21 06:52 Last Admin: 05/06/21 11:05 Dose: 30 ml Documented by: Propofol (Propofol 200 Mg/20 Ml Sdv) Confirm Administered Dose 200 mg .ROUTE .STK-MED ONE Stop: 05/06/21 08:49 Propofol (Propofol 200 Mg/20 Ml Sdv) Confirm Administered Dose 200 mg .ROUTE .STK-MED ONE Stop: 05/06/21 11:48 Propofol (Propofol 200 Mg/20 Ml Sdv) Confirm Administered Dose 200 mg .ROUTE .STK-MED ONE Stop: 05/06/21 11:48 Propofol (Propofol 200 Mg/20 Ml Sdv) Confirm Administered Dose 200 mg .ROUTE .STK-MED ONE Stop: 05/06/21 12:08 Propofol (Propofol 200 Mg/20 Ml Sdv) Confirm Administered Dose 200 mg .ROUTE .STK-MED ONE Stop: 05/06/21 13:36 - Exam Wound/Incisions: Healing Well, No Drainage Quality Assessment: DVT Prophylaxis General: Alert, Oriented, Cooperative, No Acute Distress Extremities: Pedal Edema (left ), Joint Swelling (left knee ), Leg Pain (left ), Limited Range of Motion (left knee due to pain and swelling post-operatively ), Increased Warmth. No: Geovani's Sign Skin: Dry, Intact, Ecchymosis (left knee, thigh) Neurological: No New Focal Deficit Psy/Mental Status: Alert, Normal Affect, Normal Mood Sepsis Event Note - Evaluation Sepsis Screening Result: No Definite Risk - Focused Exam Vital Signs: Vital Signs Temp Pulse Resp BP Pulse Ox 05/09/21 10:38 98.2 F 85 16 105/52 L 96 05/09/21 09:03 92/51 L 05/09/21 07:55 98.1 F 90 16 95/70 97 05/09/21 02:16 99.5 F 88 18 115/61 97 - Problem List & Annotations (1) Status post left knee surgery SNOMED Code(s): 582592292 Code(s): Z98.890 - OTHER SPECIFIED POSTPROCEDURAL STATES Status: Acute Current Visit: Yes Annotation/Comment:: Removal of hardware left tibia, revision of partial knee (2) Postoperative anemia due to acute blood loss SNOMED Code(s): 37833124540963233 Code(s): D62 - ACUTE POSTHEMORRHAGIC ANEMIA Status: Acute Current Visit: Yes - Problem List Review Problem List Initiated/Reviewed/Updated: Yes - My Orders Last 24 Hours: Medication Orders Acetaminophen (Acetaminophen 325 Mg Tab) 650 mg PO Q4H PRN PRN Reason: Pain/Fever Hydrocodone Bitart/Acetaminophen (Acetaminophen/Hydrocodone 325-5 Mg Tab) 1 tab PO Q4H PRN PRN Reason: Pain (mild 1-3) Last Admin: 05/09/21 10:45 Dose: 1 tab Documented by: TIA Amlodipine Besylate (Amlodipine 5 Mg Tab) 5 mg PO DAILY [facility] Last Admin: 05/09/21 10:03 Dose: Not Given Documented by: Admin: 05/08/21 14:13 Dose: 5 mg Documented by: Admin: 05/07/21 08:14 Dose: Not Given Documented by: NESTOR Bandage/Support Products (Nozin Nasal Taker Away) 1 applic NASBOTH BID [facility] Stop: 05/12/21 21:01 Last Admin: 05/09/21 09:06 Dose: 1 applic Documented by: Admin: 05/08/21 20:33 Dose: 1 applic Documented by: Admin: 05/08/21 08:32 Dose: 1 applic Documented by: Admin: 05/07/21 20:45 Dose: 1 applic Documented by: Admin: 05/07/21 08:59 Dose: 1 applic Documented by: Admin: 05/06/21 21:59 Dose: 1 applic Documented by: [email or web address] Clotrimazole (Clotrimazole 1% Crm 30 Gm Tube) 0 gm TOP BID [facility] Last Admin: 05/09/21 09:05 Dose: Not Given Documented by: Admin: 05/08/21 20:35 Dose: Not Given Documented by: Admin: 05/08/21 08:35 Dose: Not Given Documented by: Admin: 05/07/21 20:45 Dose: Not Given Documented by: Admin: 05/07/21 09:01 Dose: Not Given Documented by: Admin: 05/06/21 21:51 Dose: Not Given Documented by: MIKAYLA Docusate Sodium (Docusate Sodium 100 Mg Cap) 100 mg PO BID [facility] Admin: 05/09/21 09:06 Dose: 100 mg Documented by: Admin: 05/08/21 20:35 Dose: 100 mg Documented by: Admin: 05/08/21 08:34 Dose: 100 mg Documented by: Admin: 05/07/21 20:45 Dose: 100 mg Documented by: Admin: 05/07/21 09:03 Dose: 100 mg Documented by: Admin: 05/06/21 21:39 Dose: 100 mg Documented by: [email or web address] Enoxaparin Sodium (Enoxaparin 30 Mg/0.3 Ml Syringe) 30 mg SUBCUT DAILY [facility] Admin: 05/09/21 09:06 Dose: 30 mg Documented by: Admin: 05/08/21 08:43 Dose: 30 mg Documented by: Admin: 05/07/21 09:00 Dose: 30 mg Documented by: NESTOR Fluoxetine HCl (Fluoxetine 20 Mg Cap) 40 mg PO DAILY [facility] Admin: 05/09/21 09:06 Dose: 40 mg Documented by: Admin: 05/08/21 08:37 Dose: 40 mg Documented by: Admin: 05/07/21 09:00 Dose: 40 mg Documented by: NESTOR Hydrochlorothiazide (Hydrochlorothiazide 25 Mg Tab) 25 mg PO DAILY [facility] Admin: 05/09/21 10:03 Dose: Not Given Documented by: Admin: 05/08/21 14:13 Dose: 25 mg Documented by: Admin: 05/07/21 08:13 Dose: Not Given Documented by: NESTOR Magnesium Hydroxide (Magnesium Hydroxide 400 Mg/5 Ml Susp 30 Ml Cup) 30 ml PO BID PRN PRN Reason: Constipation Morphine Sulfate (Morphine 2 Mg/Ml Syringe) 1 mg IVPUSH Q1H PRN PRN Reason: Breakthrough Pain Last Admin: 05/07/21 13:29 Dose: 1 mg Documented by: Admin: 05/07/21 05:45 Dose: 1 mg Documented by: Admin: 05/06/21 21:48 Dose: 1 mg Documented by: Admin: 05/06/21 17:28 Dose: 1 mg Documented by: NESTOR Nitroglycerin (Nitroglycerin 0.4 Mg Tab.Sl) 0.4 mg SL ASDIRECTED PRN PRN Reason: Chest Pain Nystatin (Nystatin Topical Powder 15 Gm Bottle) 0 gm TOP DAILY [facility] Last Admin: 05/09/21 09:06 Dose: Not Given Documented by: Admin: 05/08/21 08:37 Dose: Not Given Documented by: Admin: 05/07/21 09:19 Dose: Not Given Documented by: NESTOR Ondansetron HCl (Ondansetron 4 Mg/2 Ml Sdv) 4 mg IVPUSH Q4H PRN PRN Reason: Nausea/Vomiting Oxycodone/Acetaminophen (Acetaminophen/Oxycodone 325-5 Mg Tab) 1 - 2 tab PO Q4H PRN PRN Reason: Pain Last Admin: 05/09/21 05:54 Dose: 2 tab Documented by: Admin: 05/09/21 02:15 Dose: 2 tab Documented by: Admin: 05/08/21 21:55 Dose: 2 tab Documented by: Admin: 05/08/21 16:54 Dose: 2 tab Documented by: Admin: 05/08/21 12:57 Dose: 2 tab Documented by: Admin: 05/08/21 08:37 Dose: 2 tab Documented by: Admin: 05/08/21 04:28 Dose: 2 tab Documented by: Admin: 05/08/21 00:27 Dose: 2 tab Documented by: Admin: 05/07/21 20:46 Dose: 2 tab Documented by: Admin: 05/07/21 16:35 Dose: 2 tab Documented by: Admin: 05/07/21 11:46 Dose: 2 tab Documented by: Admin: 05/07/21 07:45 Dose: 2 tab Documented by: Admin: 05/07/21 03:22 Dose: 1 tab Documented by: Admin: 05/06/21 23:48 Dose: 2 tab Documented by: Admin: 05/06/21 19:24 Dose: 2 tab Documented by: Admin: 05/06/21 15:16 Dose: 2 tab Documented by: [email or web address] Pantoprazole Sodium (Pantoprazole 40 Mg Tab.Cr) 40 mg PO ACBREAKFAST [facility] Last Admin: 05/09/21 07:41 Dose: 40 mg Documented by: Admin: 05/08/21 07:15 Dose: 40 mg Documented by: Admin: 05/07/21 07:03 Dose: 40 mg Documented by: [email or web address] Pramipexole Dihydrochloride (Pramipexole 0.5 Mg Tab) 0.5 mg PO BEDTIME [facility] Last Admin: 05/08/21 20:35 Dose: 0.5 mg Documented by: Admin: 05/07/21 20:45 Dose: Not Given Documented by: Admin: 05/07/21 19:34 Dose: 0.5 mg Documented by: Admin: 05/06/21 21:41 Dose: 0.5 mg Documented by: [email or web address] - Assessment Assessment (Free Text/Narrative):: Pleasant 70 y/o female, s/p left total knee revision, POD #3. Patient had no acute events overnight. Was hypotensive POD#1, so blood pressure medications were held. BP improved to within normal limits, and anti-hypertensives were resumed POD#2. Patient was again hypotensive the morning of POD#3 and had an episode of dizziness with transfer from bed to chair this morning. Dizziness did occur soon after pain medication administration. Showered this morning; notes this went well and had no dizziness with standing in shower. Does endorse fatigue. Denied fever, chills, dyspnea, nor chest pain. Patient reports pain is well controlled; has been taking 2 of the 5mg-325 mg Percocet q4 hrs. Tolerating regular diet well. Denied nausea or emesis. Continues to work with PT and OT daily; ambulated 100+ ft with FWW and SBA. Uses leg salon leader to help with transferring right leg into and out of bed. Patient requires inpatient status at this time for continued post-operative anemia monitoring and vital assessment, given recent dizzy spell with positional transfer. Exam: L LE neurovascular intact. L calf soft and supple, negative homans sign. Incisions well approximated, steristrip above. No surrounding erythema nor active drainage. Mild warmth to touch of left knee. Ecchymosis present along lateral left thigh and knee. Postoperative swelling of left knee, extending into calf + pedal edema. Plan: * Anticipate continuation of PT and OT services daily while in the hospital * Pain regimen: will take 1 Percocet, rather than 2 to see if this helps decrease dizziness * Hypotension: held morning antihypertensive medications. Is asymptomatic at this time. Continue to monitor vitals q4 hrs * Continue with 30 mg subcutaneous Lovenox daily + bilateral LE SCDs for mechanical prophylaxis * Anticipate discharge to home when medically stable. Home health referral in place to [facility]
[2021-05-09] MEDS: Pramipexole 0.5 MG Tab PO SCH ×2 (18:37→20:50)
[2021-05-10] MEDS: Acetaminophen/HYDROcodone 325-5 MG Tab PO PRN ×3 (02:05→10:03)
[2021-05-10] MEDS: Pantoprazole 40 MG Tab.CR PO SCH (07:16)
[2021-05-10 08:12] VITALS: BP 98/49; PULSE 92
[2021-05-10] MEDS: Nystatin Topical Powder 15 GM Bottle TOP SCH (08:13)
[2021-05-10] MEDS: Hydrochlorothiazide 25 MG Tab PO SCH (08:13)
[2021-05-10] MEDS: amLODIPine 5 MG Tab PO SCH (08:13)
[2021-05-10] MEDS: Nozin Nasal Sanitizer NASBOTH SCH (08:14)
[2021-05-10] MEDS: Enoxaparin 30 MG/0.3 ML Syringe SUBCUT SCH (08:15)
[2021-05-10] MEDS: Docusate Sodium 100 MG Cap PO SCH (08:15)
[2021-05-10] MEDS: Clotrimazole 1% Crm 30 GM Tube TOP SCH (08:15)
[2021-05-10] MEDS: FLUoxetine 20 MG Cap PO SCH (08:15)
--- NOTE | 2021-05-10 10:29 | PCM.DCSUM1 ---
Discharge Summary - Hospital Course Brief History: Patient is a pleasant 70-year-old female, past medical history significant for left medial unicompartmental arthroplasty and stress fracture of the tibia, status post ORIF of left tibia. Patient continued to have persistent pain and weakness in the left knee, leading to antalgic gait that caused low back pain. Symptoms were refractory to conservative management; patient elected to undergo left total knee revision. Underwent left knee hardware removal followed by total knee arthroplasty. Surgery went well with no acute complications. Hospital stay prolonged to allow for adequate pain control with PO medications, physical therapy services to progress ambulation abilities, and monitoring of postoperative anemia and hypotension. Diagnosis: Stroke: No Modified Big Stone Scale: No Symptoms at All Modified Myles Scale Score: 0 - Discharge Data Discharge Date: 05/10/21 Discharge Disposition: Home, W Home Health Agency 06 Condition: Good - Referral to Home Health Date of Face to Face Encounter: 05/10/21 Reason for Homebound Status: motivated to go home, ambulatory with FWW, demonstrates functional mobility with LLE Primary Care Physician: Jensen Santos Sr, MD Skilled Need: Post-operative vital monitoring, incision checks + prn dressing changes, ADLs. Physical therapy: progress ROM and strength to LLE - Discharge Diagnosis/Problem(s) (1) Status post left knee surgery SNOMED Code(s): 062448459 ICD Code: Z98.890 - OTHER SPECIFIED POSTPROCEDURAL STATES Status: Acute Current Visit: Yes Problem Details: Removal of hardware left tibia, revision of partial knee (2) Postoperative anemia due to acute blood loss SNOMED Code(s): 95172024007852120 ICD Code: D62 - ACUTE POSTHEMORRHAGIC ANEMIA Status: Acute Current Visit: Yes - Patient Summary/Data Operative Procedure(s) Performed: left total knee revision Consults: Consultations 05/06/21 14:08 Consult to Case Management/Museum Registrar [CONS] Routine Comment: Physician Instructions: Service(s) to be Consulted: Case Management Reason for Consult: Plan for Discharge Special Instructions: anticipate dc to home +/- home health pending progress OT Evaluation and Treatment [CONS] Routine Please Evaluate and Treat. OT Reason for Consult: adls Special Instructions: s/p L TKA This query below is only for informational purposes and is not editable. PT Evaluation and Treatment [CONS] Routine Please Evaluate and Treat. PT Reason for Consult: Post op Ortho Surgery Special Instructions: s/p L knee revision This query below is only for informational purposes and is not editable. Hospital Course: Patient is a pleasant 70-year-old female, status post left total knee revision, postop day #4. Tolerated surgery well, no surgical complications. Patient had no acute events while in the hospital. Did have drainage around left knee dressing following the surgery and into postop day #1. Dressing was reinforced 3 times; drainage ceased by the morning of postop day #1. Patient did have postoperative anemia, hemoglobin on POD#1 was 9.6. Patient did endorse fatigue throughout hospital stay, but denied any further symptoms of lightheadedness, dyspnea, chest pain, nor vision changes. Patient was hypotensive throughout stay; antihypertensive medications were held on POD#1, #3, and #4. Patient denied symptoms of hypotension prior to discharge. Blood pressure 118/62 prior to discharge. Patient's pain was well controlled with oral medications. Was feeling febrile and having night sweats with Percocet, so trialed [place]. Had adequate pain control with [place], without any night sweats, nausea, or emesis. Tolerated regular diet well. Did have a bowel movement on POD#2. Navas catheter was removed on postop day #1. IV saline locked postop day #1. Dressing change performed the evening of surgery and again on postop day #1, #3, and #4. Patient participated in physical therapy daily while in the hospital. Ambulation abilities progressed nicely, ambulating up to 160 feet plus with walker and standby assist. Completed 4 stairs successfully. Demonstrated ability to complete ADLs with minimal assistance. Exam: Left knee incisions intact and well approximated; steristrips intact above. No surrounding erythema, nor active drainage. Mild warmth to touch of left knee. Post-operative edema present around left knee, extending into calf + pedal edema. Ecchymosis present along lateral left thigh, knee, and calf. Tibialis posterior appreciated, 2+. Left calf is soft and supple. Negative homans sign. Plantar flexion: 4+/5. Dorsiflexion: 4+/5. Knee ROM: 4-85. - Patient Instructions Diet: Usual Diet as Tolerated Activity: Apply Ice, Full Weight Bearing, Rest and Relax Today Driving: Do Not Drive Showering/Bathing: May Shower Wound/Incision Care: Keep Operative Site/Wound Site Clean and Dry, Change Dressing Daily (as needed ) Notify Provider of: Fever, Increased Pain, Swelling and Redness, Drainage - Discharge Plan *PRESCRIPTION DRUG MONITORING PROGRAM REVIEWED*: Yes *COPY OF PRESCRIPTION DRUG MONITORING REPORT IN PATIENT SATHISH: Not Applicable Prescriptions/Med Rec: Acetaminophen/oxyCODONE [Percocet 325-5 MG] 1 - 2 each PO Q6HR PRN #40 tab PRN Reason: Pain Home Medications: Home Meds FLUoxetine HCl [Fluoxetine HCl] 40 mg PO DAILY 02/15/14 [History] hydroCHLOROthiazide [Hydrochlorothiazide] 25 mg PO DAILY 02/15/14 [History] Omeprazole 40 mg PO DAILY 08/26/16 [History] amLODIPine [Norvasc] 5 mg PO DAILY 05/26/19 [History] Acetaminophen [Tylenol Arthritis Pain] 650 mg PO Q6H PRN 11/28/19 [History] Ibuprofen [Advil] 200 mg PO Q4H PRN 11/28/19 [History] Nitroglycerin [Nitrostat] 0.4 mg SL ASDIRECTED 11/28/19 [History] Pramipexole [Mirapex] 0.5 mg PO BEDTIME 11/30/19 [History] Clotrimazole [Clotrimazole 1%] 15 gm .XX BID 08/13/20 [History] Nystatin 1 each MC DAILY 08/13/20 [History] Cholecalciferol (Vitamin D3) [Vitamin D] 1 tab PO DAILY 05/06/21 [History] Multivit-Min/Folic Acid/Biotin [Hair, Skin and Nails Caplet] 1 tab PO DAILY 05/06/21 [History] Multivitamin 1 tab PO DAILY 05/06/21 [History] Acetaminophen/oxyCODONE [Percocet 325-5 MG] 1 - 2 each PO Q6HR PRN #40 tab 05/09/21 [Rx] Oxygen Therapy Mode: Room Air Patient Handouts: Total Knee Replacement, Care After, [id number], Preventing Problems After Surgery, Preventing Constipation After Surgery Referrals: Jensen Carcamo MD [Physician] - 05/21/21 9:45 am (Please register at the ER desk 15 minutes early for appointment.) - Discharge Summary/Plan Comment DC Time >30 min.: No Discharge Summary/Plan Comment: * Discharge to home with home health referral; will complete PT via home health services. Does have brother, cousin, and friends in the area available to help out around the house this weekend. * Patient to monitor BP at home twice daily, prior to blood pressure medication administration. If BP <110/70, should hold BP medications. If BP remains low over the weekend, should follow up with PCP next week. If she develops orthostatic dizziness, lightheadedness, or vision changes, should be evaluated by medical provider. Patient expressed ability to check BP at home + understanding of follow up parameters. * Cancelled Percocet prescription due to unpleasant side effects with this medication. Paper script provided to patient for 5mg-325mg [place], 1-2 tabs q6 hrs prn pain, #40 * Encouraged to continue with stool softener while on opioid medication * Discussed DVT/VTE prophylaxis; patient understands warning signs and return parameters. Will take 1 aspirin BID upon discharge for 1 month post- operatively * Patient to continue with Nozin spray BID * Patient to follow up with orthopedic clinic in 2 weeks; encouraged to call sooner with any concerns or questions that arise. - General Info Date of Service: 05/10/21 Admission Dx/Problem (Free Text: s/p left total knee revision Functional Status: Reports: Pain Controlled, Tolerating Diet, Ambulating (with walker ) - Review of Systems General: Denies: Fever, Weakness, Fatigue, Malaise, Chills, Night Sweats Pulmonary: Denies: Shortness of Breath Cardiovascular: Denies: Chest Pain, Palpitations, Dyspnea on Exertion Musculoskeletal: Reports: Leg Pain (left ), Joint Pain (left knee ), Joint Swelling (left knee ) Skin: Reports: Bruising (L lateral thigh, knee, and calf ) Neurological: Reports: No Symptoms Psychiatric: Reports: No Symptoms - Patient Data Vitals - Most Recent: Last Vital Signs Temp 98.4 F 05/10/21 08:10 Pulse 92 05/10/21 08:10 Resp 16 05/10/21 08:10 BP 98/49 L 05/10/21 08:10 Pulse Ox 97 05/10/21 08:10 Weight - Most Recent: 209 lb 0.007 oz I&O - Last 24 hours: Intake & Output 05/09/21 05/10/2121 22:59 06:59 14:59 Intake Total 500 500 Balance 500 500 Med Orders - Current: Current Medications Acetaminophen (Acetaminophen 325 Mg Tab) 650 mg PO Q4H PRN PRN Reason: Pain/Fever Hydrocodone Bitart/Acetaminophen (Acetaminophen/Hydrocodone 325-5 Mg Tab) 1 tab PO Q4H PRN PRN Reason: Pain (mild 1-3) Last Admin: 05/10/21 10:03 Dose: 1 tab Documented by: Amlodipine Besylate (Amlodipine 5 Mg Tab) 5 mg PO DAILY [facility] Last Admin: 05/10/21 08:13 Dose: Not Given Documented by: Bandage/Support Products (Nozin Nasal Complaint Coordinator) 1 applic NASBOTH BID [facility] Stop: 05/12/21 21:01 Last Admin: 05/10/21 08:14 Dose: 1 applic Documented by: Clotrimazole (Clotrimazole 1% Crm 30 Gm Tube) 0 gm TOP BID [facility] Last Admin: 05/10/21 08:15 Dose: Not Given Documented by: Docusate Sodium (Docusate Sodium 100 Mg Cap) 100 mg PO BID [facility] Last Admin: 05/10/21 08:15 Dose: 100 mg Documented by: Enoxaparin Sodium (Enoxaparin 30 Mg/0.3 Ml Syringe) 30 mg SUBCUT DAILY [facility] Last Admin: 05/10/21 08:15 Dose: 30 mg Documented by: Fluoxetine HCl (Fluoxetine 20 Mg Cap) 40 mg PO DAILY [facility] Last Admin: 05/10/21 08:15 Dose: 40 mg Documented by: Hydrochlorothiazide (Hydrochlorothiazide 25 Mg Tab) 25 mg PO DAILY [facility] Last Admin: 05/10/21 08:13 Dose: Not Given Documented by: Magnesium Hydroxide (Magnesium Hydroxide 400 Mg/5 Ml Susp 30 Ml Cup) 30 ml PO BID PRN PRN Reason: Constipation Morphine Sulfate (Morphine 2 Mg/Ml Syringe) 1 mg IVPUSH Q1H PRN PRN Reason: Breakthrough Pain Last Admin: 05/07/21 13:29 Dose: 1 mg Documented by: Nitroglycerin (Nitroglycerin 0.4 Mg Tab.Sl) 0.4 mg SL ASDIRECTED PRN PRN Reason: Chest Pain Nystatin (Nystatin Topical Powder 15 Gm Bottle) 0 gm TOP DAILY [facility] Last Admin: 05/10/21 08:13 Dose: Not Given Documented by: Ondansetron HCl (Ondansetron 4 Mg/2 Ml Sdv) 4 mg IVPUSH Q4H PRN PRN Reason: Nausea/Vomiting Oxycodone/Acetaminophen (Acetaminophen/Oxycodone 325-5 Mg Tab) 1 - 2 tab PO Q4H PRN PRN Reason: Pain Last Admin: 05/09/21 05:54 Dose: 2 tab Documented by: Pantoprazole Sodium (Pantoprazole 40 Mg Tab.Cr) 40 mg PO ACBREAKFAST [facility] Last Admin: 05/10/21 07:16 Dose: 40 mg Documented by: Pramipexole Dihydrochloride (Pramipexole 0.5 Mg Tab) 0.5 mg PO BEDTIME [facility] Last Admin: 05/09/21 20:50 Dose: Not Given Documented by: Discontinued Medications Bandage/Support Products (Nozin Nasal Complaint Coordinator) 1 applic NASBOTH ONETIME ONE Stop: 05/06/21 08:01 Last Admin: 05/06/21 07:51 Dose: 1 applic Documented by: Bupivacaine HCl (Bupivacaine 0.5% 30 Ml Sdv) Confirm Administered Dose 30 ml .ROUTE .STK-MED ONE Stop: 05/06/21 10:46 Fentanyl (Fentanyl 100 Mcg/2 Ml Sdv) Confirm Administered Dose 100 mcg .ROUTE .STK-MED ONE Stop: 05/06/21 08:49 Fentanyl (Fentanyl 250 Mcg/5 Ml Sdv) Confirm Administered Dose 250 mcg .ROUTE .STK-MED ONE Stop: 05/06/21 10:46 Fentanyl (Fentanyl 100 Mcg/2 Ml Sdv) Confirm Administered Dose 100 mcg .ROUTE .STK-MED ONE Stop: 05/06/21 13:33 Cefazolin Sodium/Dextrose 2 gm (/ Premix) 50 mls @ 100 mls/hr IV ONETIME ONE Stop: 05/06/21 08:59 Last Admin: 05/06/21 10:15 Dose: 100 mls/hr Documented by: Lactated Ringer's (Ringers, Lactated) 1,000 mls @ 75 mls/hr IV ASDIRECTED [facility] Last Admin: 05/06/21 08:25 Dose: 75 mls/hr Documented by: Lidocaine HCl (Xylocaine-Mpf 1%) Confirm Administered Dose 2 mls @ as directed .ROUTE .STK-MED ONE Stop: 05/06/21 10:33 Lactated Ringer's (Ringers, Lactated) Confirm Administered Dose 1,000 mls @ as directed .ROUTE .STK-MED ONE Stop: 05/06/21 10:54 Sodium Chloride (Normal Saline) 1,000 mls @ 125 mls/hr IV ASDIRECTED [facility] Last Admin: 05/06/21 23:33 Dose: 125 mls/hr Documented by: Cefazolin Sodium/Dextrose 1 gm (/ Premix) 50 mls @ 100 mls/hr IV Q8H [facility] Stop: 05/07/21 09:29 Last Admin: 05/07/21 09:01 Dose: 100 mls/hr Documented by: Midazolam HCl (Midazolam 1 Mg/Ml 2 Ml Sdv) Confirm Administered Dose 2 mg .ROUTE .STK-MED ONE Stop: 05/06/21 08:49 Povidone Iodine (Povidone-Iodine 10% Soln 118.25 Ml Bottle) Confirm Administered Dose 1 ml .ROUTE .STK-MED ONE Stop: 05/06/21 06:52 Last Admin: 05/06/21 11:05 Dose: 30 ml Documented by: Propofol (Propofol 200 Mg/20 Ml Sdv) Confirm Administered Dose 200 mg .ROUTE .STK-MED ONE Stop: 05/06/21 08:49 Propofol (Propofol 200 Mg/20 Ml Sdv) Confirm Administered Dose 200 mg .ROUTE .STK-MED ONE Stop: 05/06/21 11:48 Propofol (Propofol 200 Mg/20 Ml Sdv) Confirm Administered Dose 200 mg .ROUTE .STK-MED ONE Stop: 05/06/21 11:48 Propofol (Propofol 200 Mg/20 Ml Sdv) Confirm Administered Dose 200 mg .ROUTE .STK-MED ONE Stop: 05/06/21 12:08 Propofol (Propofol 200 Mg/20 Ml Sdv) Confirm Administered Dose 200 mg .ROUTE .STK-MED ONE Stop: 05/06/21 13:36 - Exam Quality Assessment: Reports: DVT Prophylaxis General: Reports: Alert, Oriented, Cooperative, No Acute Distress Extremities: Normal Capillary Refill, Pedal Edema (left ), Joint Swelling (left knee ), Leg Pain (left ), Limited Range of Motion (left knee from postoperative swelling and pain ). No: Geovani's Sign Skin: Reports: Dry, Intact, Ecchymosis (along left lateral thigh, knee, and calf ) Wound/Incisions: Reports: Healing Well, Dressing Dry and Intact, No Drainage Psy/Mental Status: Reports: Alert, Normal Affect, Normal Mood
--- NOTE | 2021-05-13 20:54 | OR ---
DATE OF PROCEDURE: 05/06/2021 SURGEON: Jensen Carcamo MD PREOPERATIVE DIAGNOSIS: Painful left unicompartmental arthroplasty with subsidence. POSTOPERATIVE DIAGNOSIS: Painful left unicompartmental arthroplasty with subsidence. PROCEDURE: 1. Removal of cannulated screws. 2. Revision of unicompartmental arthroplasty to total knee arthroplasty, left knee using Elsa LCCK components with size E femur 14 mm stem x 100 mm, size E tibia with 13 mm x 100 mm offset stem, 29 mm patella and 17 mm poly insert. RISK ADJUSTMENT SPECIALIST: DAVE Doyle. ANESTHESIA: Spinal with sedation. INDICATIONS: Rhiannon is a 70-year-old female, who has a history of unicompartmental arthroplasty and developed a stress fracture of the medial tibial plateau. This was treated with cannulated screws and gone on to heal, however, she has had persistent pain and slow development of increased varus deformity of the knee. She has failed conservative treatment including activity modification, walking assist, bracing, and physical therapy. She now presents for conversion of unicompartmental arthroplasty to total knee arthroplasty. The risks, benefits, and potential complications were discussed. DESCRIPTION OF PROCEDURE: After adequate anesthesia was obtained, the patient placed supine with a tourniquet about the left upper thigh. Left leg was prepped and draped in a sterile fashion. Leg was exsanguinated and tourniquet inflated to 300 mmHg pressure. Flouroscopy was used to localize the cannulated screws. An small incision was made over the medial metaphysis and carried down to the bone. Using flouroscopic assistance the screw heads were located and cleared of sort tissue. All three screws were removed along with the metal washers. The previous incision was extended proximally and distally, carried down through subcutaneous tissues and a medial parapatellar arthrotomy was performed. Portions of the previous sutures in the capsule were removed with a rongeur. There is no evidence of infection within the knee. Patella is partially everted, clamped, and the posterior aspect is resected with an oscillating saw. Using a combination of small curved, straight and flexible osteotomes, the femoral component was loosened and removed. Small amount of bone was removed with it. There was no evidence of loosening or infection. The tibial polyethylene was removed with an osteotome and again using combination of osteotomes, the tibial component was loosened and removed. Again, small amount of bone was removed with it. There was no evidence of loosening. The remaining portions of bone cement were removed with combination of osteotomes and rongeurs. The intramedullary canal of the femur was drilled and sequentially reamed up to 14 mm. Last reamer was left in place and use as a guide. The distal cut is made. The femur sized. Appropriate jig was placed over the reamer, secured to the distal femur and remaining cuts were made. This included an intercondylar notch cut for LCCK component. Trial femoral component is assembled and pressed into position with good fit and no need for augments. Trials were removed. Attention is turned to the tibia. Retractors were placed. A drill was used to enter the intramedullary canal and the canal was sequentially reamed to a size 13. Stem was left in position and the intramedullary cutting jig was placed over this. This is initially set to slightly freshen the medial portion of the plateau and resect the lateral portion and a 5 mm augment medially. The cutting jig was secured. Reamer was removed and the tibia was resected. Lateral meniscus was excised. The tibia is sized. Base plate was pinned in position over the reamer with offset. Central portion was reamed with the larger proximal reamer and then punched. The trial was assembled. The femurs were replaced and shows minimal space so that a 10 mm insert was too tight. The tibia was recut flush with the medial resection. Fins were punched once again and a trial assembled. This resulted in 17 mm insert providing balance in flexion and extension. The patella is resurfaced with a 29 mm patellar button and this was just slight lateral tracking and a mild lateral release was performed resulting in good centering of the patella. Trials were removed. The knee is thoroughly irrigated with the pulse lavage. The bone surfaces were dried. Components were assembled on the back table and then inserted with cement. Excess cement was removed. The knee was held in full extension with the trial tibial insert until cement cares. A final 17 mm polyethylene was chosen. The trials were removed. The knee was irrigated. Poly is locked into position and screws then inserted into the stem and tightened down with a torque wrench. Knee was irrigated once again. This was followed by irrigation with a dilute Betadine solution which is let in place for 2.5 minutes. This was followed by another pulse lavage irrigation. Knee was again taken through range of motion and found to have full extension, flexion easily to 120 degrees and central tracking of the patella. Knee is closed with #2 Ethibond knee capsule, 2-0 Vicryl and a running 3-0 Monocryl. Steri-Strips were applied. Light compressive dressing was placed. Jensen Carcamo MD /[id number]
== END 2021-05-10 12:10 | disposition home health service (06) | DRG 467 ==
LOC: JP.SDS 07:07 → EDSTATUS 08:30 → JP.SDSSCHI 15:06 → JP.MS 15:08
PROVIDERS: ADMIT Specialist; ATTEND Specialist
PROC: 0SPD0JZ Removal of Synthetic Substitute from Left Knee Joint, Open Approach (ICD-10-PCS; principal; 2021-05-06)
PROC: 0SRD0J9 Replacement of Left Knee Joint with Synthetic Substitute, Cemented, Open Approach (ICD-10-PCS; 2021-05-06)
DX: T84.84XA Pain due to internal orthopedic prosthetic devices, implants and grafts, initial encounter (principal); D62 Acute posthemorrhagic anemia; I10 Essential (primary) hypertension; E78.5 Hyperlipidemia, unspecified; E66.9 Obesity, unspecified; F32.9 Major depressive disorder, single episode, unspecified; K21.9 Gastro-esophageal reflux disease without esophagitis; M19.90 Unspecified osteoarthritis, unspecified site; I83.90 Asymptomatic varicose veins of unspecified lower extremity; Z96.651 Presence of right artificial knee joint; G47.30 Sleep apnea, unspecified; I95.81 Postprocedural hypotension; Z86.010 Personal history of colon polyps; Z98.890 Other specified postprocedural states; Z68.31 Body mass index [BMI] 31.0-31.9, adult
CPT/HCPCS: 36415; 73560-26-LT; 73560-LT; 76000; 85027; 86850; 86900; 86901; 97110-GP; 97161-GP; 97165-GO; 97530-GP; 97535-GO; 97535-GP; A9270-GY; C1713; J0690; J1650; J2250; J2270; J2704; J3010; J3490; J7030; J7120

== ENCOUNTER 2022-11-18 08:18 | Day surgery (SDC) | payer MEDICARE, BC ==
[2022-11-18] MEDS ORDERED: Sodium Chloride 0.9% 1,000 ML IV SCH (09:00)
[2022-11-18] MEDS ORDERED: fentaNYL 100 MCG/2 ML SDV ONE (09:30)
[2022-11-18] MEDS ORDERED: Propofol 200 MG/20 ML SDV ONE (09:30)
[2022-11-18 10:55] VITALS: BP 127/81; PULSE 74
== END 2022-11-18 10:56 | disposition home or self-care (01) ==
LOC: JP.SDS 08:18
PROVIDERS: ATTEND Internal Medicine
DX: Z12.11 Encounter for screening for malignant neoplasm of colon (principal); I10 Essential (primary) hypertension; K21.9 Gastro-esophageal reflux disease without esophagitis; G47.33 Obstructive sleep apnea (adult) (pediatric); J44.9 Chronic obstructive pulmonary disease, unspecified; E66.9 Obesity, unspecified; E78.5 Hyperlipidemia, unspecified; Z86.010 Personal history of colon polyps; Z79.899 Other long term (current) drug therapy; Z88.0 Allergy status to penicillin; Z88.8 Allergy status to other drugs, medicaments and biological substances
CPT/HCPCS: G0105; J2704; J3010; J7030

== ENCOUNTER 2023-12-09 07:50 | Inpatient (IN) | payer MEDICARE, BC ==
[~2023-12-09 07:50] MED LIST changes: +Bupivacaine 0.5% 30 ML SDV ONE; +Bupivacaine 0.5% 50 ML MDV ONE; +Dexamethasone 4 MG/ML SDV ONE; +Glycopyrrolate 0.2 MG/ML 5 ML MDV ONE; +Midazolam 1 MG/ML 2 ML SDV ONE; +Neostigmine Methylsulfate 10 MG/10 ML MDV ONE; +Ondansetron 4 MG/2 ML SDV ONE; -Povidone-Iodine 10% Soln 118.25 ML Bottle ONE; +Propofol 200 MG/20 ML SDV ONE; +Rocuronium 50 MG/5 ML Vial ONE; +Succinylcholine 200 MG/10 ML MDV ONE; +fentaNYL 100 MCG/2 ML SDV ONE
[2023-12-09 08:25] LABS: HEMATOCRIT 36.6 % (34.3-46.0); HEMOGLOBIN 12.7 g/dL (11.2-15.5); MEAN CORPUSCULAR HEMOGLOBIN 30.2 pg (31.6-35.5); MEAN CORPUSCULAR HGB CONC 34.7 g/dL (31.6-35.5); MEAN CORPUSCULAR VOLUME 87.1 fL (81.4-99.0); RED BLOOD CELL COUNT 4.2 M/uL (3.77-5.24); WHITE BLOOD CELL COUNT,WBC 5.4 K/uL (3.2-11.0)
[2023-12-09] MEDS: Lactated Ringers 1,000 ML IV SCH (08:28)
[2023-12-09 08:46] LABS: A/G RATIO 1.1 (1.2-2.2); ALANINE AMINOTRANSFERASE,ALT 29 U/L (12-78); ALBUMIN 3.9 g/dL (3.4-5.0); ALKALINE PHOSPHATASE 91 U/L (46-116); ASPARTATE AMNIOTRANSFERASE,AST 22 U/L (15-37); BILIRUBIN TOTAL 0.7 mg/dL (0.2-1.0); BLOOD UREA NITROGEN,BUN 16 mg/dL (7-18); CALCIUM 9.3 mg/dL (8.5-10.1); CARBON DIOXIDE,CO2 26 mmol/L (21-32); CHLORIDE,CL 102 mmol/L (100-108); CREATININE 0.7 mg/dL (0.6-1.0); ESTIMATED GFR 90 mL/min (>60); GLUCOSE RANDOM 100 mg/dL (74-106); POTASSIUM,K 3.6 mmol/L (3.6-5.2); PROTEIN TOTAL,TP 7.5 g/dL (6.4-8.2); SODIUM,NA 139 mmol/L (140-148)
[2023-12-09 08:48] LABS: ANION GAP 14.6 mmol/L (5.0-14.0)
[2023-12-09] MEDS: Nozin Nasal Sanitizer NASBOTH ONE (09:02)
[2023-12-09] MEDS ORDERED: Morphine 2 MG/ML SYRINGE IVPUSH PRN (09:36)
[2023-12-09] MEDS ORDERED: Ondansetron 4 MG/2 ML SDV IVPUSH PRN (09:36)
[2023-12-09] MEDS ORDERED: Docusate Sodium 100 MG Cap PO PRN (09:36)
[2023-12-09] MEDS: ceFAZolin 2 GM in Premix Bag 1 BAG IV ONE (09:40)
[2023-12-09] MEDS ORDERED: Nystatin Topical Powder 15 GM Bottle TOP PRN (09:40)
[2023-12-09] MEDS ORDERED: Sodium Chloride 0.9% 10 ML ONE (10:31)
[2023-12-09] MEDS ORDERED: ePHEDrine 50 MG/ML SDV ONE (10:31)
[2023-12-09] MEDS ORDERED: Lactated Ringers 1,000 ML ONE (11:13)
[2023-12-09] MEDS ORDERED: fentaNYL 100 MCG/2 ML SDV ONE (11:51)
[2023-12-09] MEDS: Morphine 2 MG/ML SYRINGE IVPUSH ONE (12:28)
[2023-12-09] MEDS: Ketorolac 30 MG/ML SDV IVPUSH ONE (12:51)
[2023-12-09] MEDS: Sodium Chloride 0.9% 1,000 ML IV SCH (13:16)
[2023-12-09] MEDS: oxyCODONE 5 MG Tab PO PRN ×2 (13:18→19:11)
[2023-12-09] MEDS: Acetaminophen 325 MG Tab PO SCH (15:25)
[2023-12-09] MEDS: ceFAZolin 2 GM in Premix Bag 1 BAG IV SCH (16:30)
[2023-12-09] MEDS: Gabapentin 300 MG Cap PO SCH (16:31)
[2023-12-09] MEDS: Losartan 50 MG Tab PO SCH (20:12)
[2023-12-09] MEDS: Pramipexole 0.5 MG Tab PO SCH (20:12)
[2023-12-09] MEDS: Nozin Nasal Sanitizer NASBOTH SCH (20:13)
[2023-12-09] MEDS: Magnesium Hydroxide 400 MG/5 ML Susp 30 ML Cup PO PRN (20:15)
[2023-12-10] MEDS: Ketorolac 15 MG/ML SDV IVPUSH PRN (05:14)
[2023-12-10] MEDS: Alendronate 70 MG Tab PO SCH (05:15)
[2023-12-10] MEDS: Hydrochlorothiazide 25 MG Tab PO SCH (09:09)
[2023-12-10] MEDS: Aspirin 325 MG Tab.EC PO SCH (09:09)
[2023-12-10] MEDS: Cholecalciferol (Vitamin D3) 25 MCG Tab PO SCH (09:10)
[2023-12-10] MEDS: Magnesium Oxide 400 MG Tab PO SCH (09:10)
[2023-12-10] MEDS: Acetaminophen/HYDROcodone 325-5 MG Tab PO PRN (10:24)
[2023-12-11] MEDS: traMADol 50 MG Tab PO SCH (09:25)
[2023-12-11 13:56] VITALS: BP 117/66; PULSE 98
== END 2023-12-11 14:10 | disposition home or self-care (01) | DRG 483 ==
LOC: JP.SDS 07:50 → JP.MS 09:36 → JP.SDS 12-10 08:31
PROVIDERS: ADMIT Specialist; ATTEND Specialist
PROC: 0RRJ0JZ Replacement of Right Shoulder Joint with Synthetic Substitute, Open Approach (ICD-10-PCS; principal; 2023-12-10)
DX: M19.011 Primary osteoarthritis, right shoulder (principal); G25.81 Restless legs syndrome; I10 Essential (primary) hypertension; E66.9 Obesity, unspecified; Z96.643 Presence of artificial hip joint, bilateral; Z96.653 Presence of artificial knee joint, bilateral; Z68.37 Body mass index [BMI] 37.0-37.9, adult; Z79.899 Other long term (current) drug therapy
CPT/HCPCS: 36415; 73020-26-RT; 73020-RT; 80053; 85027; 97110-GO; 97165-GO; 97535-GO; A9270-GY; C1713; C1776; J0330; J0665; J0690; J1100; J1885; J2250; J2270; J2405; J2704; J2710; J3010; J3490; J7030; J7120

== ENCOUNTER 2024-04-20 06:23 | Day surgery (SDC) | payer MEDICARE, BC, MEDICAID ==
[2024-04-20] MEDS ORDERED: fentaNYL 50 MCG/ML SDV ONE (07:15)
[2024-04-20] MEDS ORDERED: Propofol 200 MG/20 ML SDV ONE ×2 (07:15→08:37)
[2024-04-20] MEDS ORDERED: Midazolam 1 MG/ML 2 ML SDV ONE (07:15)
[2024-04-20] MEDS: Sodium Chloride 0.9% 1,000 ML IV SCH (08:04)
[2024-04-20 09:48] VITALS: BP 108/66; PULSE 73
== END 2024-04-20 10:00 | disposition home or self-care (01) ==
LOC: JP.SDS 06:23
PROVIDERS: ATTEND Surgery
DX: K52.9 Noninfective gastroenteritis and colitis, unspecified (principal); K22.89 Other specified disease of esophagus; I10 Essential (primary) hypertension; Z88.0 Allergy status to penicillin
CPT/HCPCS: 43239; 45380; J2250; J2704; J3010; J7030

== ENCOUNTER 2024-05-11 06:26 | Day surgery (SDC) | payer MEDICARE, BC, MEDICAID ==
[2024-05-11] MEDS ORDERED: Bupivacaine 0.5% 50 ML MDV ONE (06:49)
[2024-05-11 06:51] LABS: BASOPHILS ABSOLUTE AUTO 0.04 K/uL (0.00-0.10); BASOPHILS PERCENT AUTO 0.9 % (0.1-1.3); EOSINOPHILS ABSOLUTE AUTO 0.09 K/uL (0.00-0.40); HEMATOCRIT 34.7 % (34.3-46.0); HEMOGLOBIN 12.1 g/dL (11.2-15.5); IMMATURE GRAN PERCENT AUTO 0.2 % (0.0-0.7); LYMPHOCYTES ABSOLUTE AUTO 1.29 K/uL (0.8-3.3); LYMPHOCYTES PERCENT AUTO 28.1 % (11.4-47.7); MEAN CORPUSCULAR HEMOGLOBIN 29.4 pg (31.6-35.5); MEAN CORPUSCULAR HGB CONC 34.9 g/dL (31.6-35.5); MEAN CORPUSCULAR VOLUME 84.4 fL (81.4-99.0); MONOCYTES ABSOLUTE AUTO 0.57 K/uL (0.20-0.90); MONOCYTES PERCENT AUTO 12.4 % (3.3-12.6); NEUTROPHILS ABSOLUTE AUTO 2.59 K/uL (1.0-7.6); NEUTROPHILS PERCENT AUTO 56.4 % (40.0-78.1); PLATELET COUNT,PLT 248 K/uL (130-375); RED BLOOD CELL COUNT 4.11 M/uL (3.77-5.24); WHITE BLOOD CELL COUNT,WBC 4.6 K/uL (3.2-11.0)
[2024-05-11 06:52] LABS: IMMATURE GRAN ABSOLUTE AUTO 0.01 K/uL (0.00-0.23)
[2024-05-11 07:11] LABS: A/G RATIO 1.3 (1.2-2.2); ALANINE AMINOTRANSFERASE,ALT 26 U/L (12-78); ALKALINE PHOSPHATASE 85 U/L (46-116); ASPARTATE AMNIOTRANSFERASE,AST 20 U/L (15-37); BILIRUBIN TOTAL 0.7 mg/dL (0.2-1.0); BLOOD UREA NITROGEN,BUN 20 mg/dL (7-18); CALCIUM 8.6 mg/dL (8.5-10.1); CARBON DIOXIDE,CO2 26 mmol/L (21-32); CHLORIDE,CL 102 mmol/L (100-108); CREATININE 0.7 mg/dL (0.6-1.0); ESTIMATED GFR 90 mL/min (>60); GLUCOSE RANDOM 100 mg/dL (74-106); POTASSIUM,K 3.4 mmol/L (3.6-5.2); SODIUM,NA 140 mmol/L (140-148)
[2024-05-11] MEDS: Lactated Ringers 1,000 ML IV SCH (07:18)
[2024-05-11] MEDS: Nozin Nasal Sanitizer NASBOTH ONE (07:19)
[2024-05-11 07:21] LABS: ANION GAP 15.4 mmol/L (5.0-14.0)
[2024-05-11] MEDS: ceFAZolin 2 GM in Premix Bag 1 BAG IV ONE (07:28)
[2024-05-11] MEDS ORDERED: fentaNYL 100 MCG/2 ML SDV ONE (07:39)
[2024-05-11] MEDS ORDERED: Midazolam 1 MG/ML 2 ML SDV ONE (07:39)
[2024-05-11] MEDS ORDERED: Propofol 200 MG/20 ML SDV ONE ×2 (07:39→08:41)
[2024-05-11] MEDS ORDERED: Bupivacaine 0.5% 30 ML SDV ONE (07:46)
[2024-05-11 10:04] VITALS: BP 124/61; PULSE 75
== END 2024-05-11 10:55 | disposition home or self-care (01) ==
LOC: JP.SDS 06:26
PROVIDERS: ATTEND Specialist
DX: M75.101 Unspecified rotator cuff tear or rupture of right shoulder, not specified as traumatic (principal); M25.851 Other specified joint disorders, right hip; G47.33 Obstructive sleep apnea (adult) (pediatric); I10 Essential (primary) hypertension; K21.9 Gastro-esophageal reflux disease without esophagitis; E66.9 Obesity, unspecified; Z88.0 Allergy status to penicillin; Z88.8 Allergy status to other drugs, medicaments and biological substances
CPT/HCPCS: 01630; 29822; 36415; 80053; 85025; A9270; C1713; J0665; J0690; J2250; J2704; J3010; J7120